=== PATIENT | female | born 1955 | race Caucasian/White ===

== ENCOUNTER 2020-01-26 11:32 | Inpatient (IN) | payer MEDICARE, SELFPAY ==
[2020-01-26] VITALS (10 sets, daily range): BP systolic 101–143; BP diastolic 47–82; PULSE 71–124; RESP 16–31; TEMP 36–37; O2SAT 95–100; BMI 31.0
--- NOTE | ~2020-01-26 | CT_ITS ---
EXAMINATION: CT brain wo con DATE: 01/26/2020 11:55 INDICATION: Cerebrovascular accident. Confusion. Collapsed at 1115 hours TECHNIQUE: Computed tomography (CT) of the head was performed without intravenous contrast. The mA wa s adjusted according to patient size. Iterative reconstruction technique was employed. Exam dose: 60 5.33 mGy-cm total exam DLP. COMPARISON: None FINDINGS: There are bilateral carotid siphon internal carotid artery calcifications. There is nonspec ific patchy diminished attenuation of the subcortical and periventricular cerebral white matter, poss ibly related to chronic small vessel ischemic changes. CT examination is not sensitive for hyperacute ischemic cerebrovascular accident. There is asymmetry of the lateral ventricles, the left frontal horn and body of the left lateral vent ricle larger than the right. No intracranial mass lesion or hemorrhage or mass effect is noted. No subdural or epidural hematoma i s detected. Orbital contents are unremarkable. Included paranasal sinuses and mastoid air cells are unremarkable. No fracture or bone destruction of the cranial vault. IMPRESSION: Cerebral atherosclerosis and chronic small vessel ischemic changes of the cerebral white matter Likely chronic lateral ventricle asymmetry No acute intracranial finding is noted; no intracranial hemorrhage Dr. Dubon telephoned the emergency room physician Dr. Castro with the report on 01/26/2020 at 1202 andria rs Reviewed, dictated and finalized at [facility]. Reviewed, dictated and finalized at location [facility]. IMPRESSION: Cerebral atherosclerosis and chronic small vessel ischemic changes of the cerebral white matter Likely chronic lateral ventricle asymmetry No acute intracranial finding is noted; no intracranial hemorrhage Dr. Dubon telephoned the emergency room physician Dr. Castro with the report on 01/26/2020 at 1202 hours
--- NOTE | ~2020-01-26 | MR_ITS ---
EXAMINATION: MR brain/brain stem wo/w con DATE: 01/27/2020 14:40 INDICATION: Seizure. TECHNIQUE: Magnetic resonance imaging (MRI) of the brain and brainstem was performed without and with 17 mL MultiHance intravenous contrast. Sequences included sagittal and axial T1-weighted FSE, axial diffusion-weighted FS EPI, axial T2*-weighted GRE, axial T2-weighted FLAIR Propeller, and axial T2-we ighted Propeller. Postcontrast sequences included axial and coronal T1-weighted FSE. Apparent diffusi on coefficient (ADC) maps were created. COMPARISON: Head CT 01/26/2020 FINDINGS: Motion artifact is noted. There are scattered areas of nonspecific increased T2-weighted si gnal intensity in the cerebral white matter and mac. There is no intracranial hemorrhage, acute infa rction, or abnormal intracranial mass lesion. The ventricles are normal in size. There is rightward d isplacement of the septum pellucidum, likely not clinically significant. The orbits are normal. There is mild mucosal thickening in the paranasal sinuses. The mastoid air cells are normal. IMPRESSION: 1. Moderate nonspecific cerebral white matter disease and pontine disease, which likely represents ch ronic small vessel ischemic disease. Reviewed, dictated and finalized at location [facility]. IMPRESSION: 1. Moderate nonspecific cerebral white matter disease and pontine disease, whic h likely represents chronic small vessel ischemic disease.
--- NOTE | ~2020-01-26 | XR_ITS ---
XR chest 1V portable 01/26/2020 12:04 Indication: Altered mental status. Stroke protocol. Procedure: AP portable chest Comparison: No prior studies for comparison. Findings: Elevated right diaphragm. Heart size normal. No focal air space disease, pulmonary edema, p leural effusion or suspected pneumothorax. No acute osseous abnormality. There are degenerative snow es of the glenohumeral joints. Impression: 1: No acute cardiopulmonary disease. Reviewed, dictated and finalized at location [facility]. Impression: 1: No acute cardiopulmonary disease.
--- NOTE | 2020-01-26 11:43 | ED.GENADULT ---
HPI - General Adult General Chief complaint: Neuro Symptoms/Deficit Stated complaint: AMS Time Seen by Provider: 01/26/20 11:43 Source: family and EMS Mode of arrival: EMS Limitations: altered mental status History of Present Illness HPI narrative: Patient is a 64-year-old female who presents for evaluation of altered mental status. Patient's reportedly called EMS as the patient was found unresponsive, moaning on a couch at home, shortly after patient has been has been eating breakfast. No seizure-like activity, the did state that she was unresponsive and was shaking. When questioned if he saw her arms or teeth clenched or any seizure-like activity, he was unable to provide any information for this. Patient also may have a history of seizure, but patient's is unsure of her medical problems, states that she takes medications but does not know for what. EMS initially brought the patient in as a code stroke, seen she was combative with a fascia. No noticeable facial drift or hemiparesis noted per EMS. EMS on is unable to obtain any IV access due to patient's combativeness which has resolved at the time of assessment. Patient currently is alert and oriented to person and place, she is able to identify her spouse. She is able to identify 3 objects in the room with correct naming. There is no gross focal deficits on initial exam. Patient is unable to provide additional history. Related Data Home Medications Medication Instructions Recorded Confirmed albuterol sulfate INHALATION 01/26/20 cyanocobalamin (vitamin B-12) 01/26/20 hydrochlorothiazide 01/26/20 levetiracetam PO 01/26/20 losartan 01/26/20 omeprazole 01/26/20 Allergies Allergy/AdvReac Type Severity Reaction Status Date / Time Penicillins Allergy Unknown Unknown Verified 01/26/20 12:06 ASPIRIN (Generic Allergy) Allergy Unknown Y Uncoded 01/26/20 12:06 Review of Systems Review of Systems: Narrative: Unable to obtain, secondary to altered mental status PMFSH Past Medical History Medical History GERD (gastroesophageal reflux disease) Obstructive sleep apnea Pulmonary hypertension Surgical History Surgical History H/O: hysterectomy Hx of cholecystectomy Family History Family History (Updated 11/19/16 @ 10:22 by DOCTOR UNKNOWN) Mother Diabetes mellitus, Onset Age: 87 Family history of cardiovascular disease, Onset Age: 87 Cerebrovascular accident, Onset Age: 87 Father Family history of cardiovascular disease, Onset Age: 83 Social History Social History Smoking status: Former smoker Smoking end date: 07/12/74 Alcohol intake: current Gender identity (if verbalized by the patient): Female Sexual Orientation (if Verbalized by the Patient): Straight or Heterosexual Exam Narrative: Exam Narrative: GENERAL: Awake, alert HEAD: Normocephalic, atraumatic. EYES: PERRLA and EOMI. ENT: Nares clear, no rhinorrhea or epistaxis. Mucous membranes moist. NECK: Supple. CHEST: No respiratory distress, breathing even and non labored HEART: Regular rate, sinus rhythm ABDOMEN:Non distended, non tender EXTREMITIES: Normal range of motion. No edema. SKIN: Warm, dry, no rash. NEURO:No focal deficits. Alert and oriented x2, can identify , and self, cannot provide date, year, or current President. Can identify three objects correctly. Finger to nose intact bilaterally. EOMs intact without nystagmus. No facial droop/asymmetry noted bilaterally. Grimace intact. Intact sensation in face. Hearing intact bilaterally. Shoulder shrug intact. Strength 5/5 bilateral upper extremities. No drift bilateral upper extremities. Strength 5/5 bilateral lower extremities. Reflexes 2+ patellar. Heel to gil intact bilaterally. Ambulatory exam deferred. Cou
[2020-01-26 12:02] LABS: Glucose Point of Care 149 (65-105)
--- NOTE | 2020-01-26 12:05 | PC.NURSE ---
pt to ct via stretcher with RN at this time.
[2020-01-26] MEDS: SODIUM CHLORIDE 0.9% IV 1,000 ML 999 ML IV CONT (12:11)
--- NOTE | 2020-01-26 12:19 | ECG_ITS ---
Measurements Intervals Ferguson Rate: 134 P: 50 DE: 148 QRS: 3 QRSD: 76 T: 14 QT: 303 QTc: 453 Interpretive Statements SINUS TACHYCARDIA EARLY PRECORDIAL R/S TRANSITION BASELINE WANDER- V4-V6 ABNORMAL ECG Electronically Signed On 01-27-2020 14:02:40 CDT by Dameon Carter D.O.
--- NOTE | 2020-01-26 12:59 | PC.NURSE ---
RN observed pt have a clonic seizure. ERP Dr. Castro at bedside, 2mg IV Ativan administered.
[2020-01-26] MEDS: levETIRAcetam 1000MG/NACL100ML 1,000 MG/100 ML BAG 400 MG IVPB ×2 (13:05→21:02)
[2020-01-26 13:15] LABS: Basophils Absolute Auto 0.1 K/mm3 (0.0-0.1); Eosinophils Percent Auto 0.4 % (0-4.4); Hematocrit 38.5 % (37.0-47.0); Immature Granulocyte Absolute 0.09 K/mm3 (0.00-0.031); Immature Granulocyte Percent A 1.3 % (0-0.5); Lymphocytes Absolute Auto 1.25 K/mm3 (0.9-3.2); Lymphocytes Percent Auto 18.7 % (18.3-44.2); Mean Corpuscular HGB Conc 33.8 g/dl (32-36); Mean Corpuscular Hemoglobin 29.5 pg (26-34); Mean Corpuscular Volume 87.5 fl (80-100); Mean Platelet Volume 9.5 fl (7.4-10.4); Monocytes Absolute Auto 0.4 K/mm3 (0.1-0.6); Monocytes Percent Auto 5.8 % (2.6-8.5); Neutrophils Absolute Auto 4.9 K/mm3 (1.3-6.7); Neutrophils Percent Auto 72.8 % (45.5-73.1); Platelet Count Result 199 k/mm3 (150-375); Red Cell Distribution Width 12.5 % (11.5-14.5); White Blood Count 6.7 K/mm3 (4.5-10.0)
--- NOTE | 2020-01-26 13:17 | PC.NURSE ---
Patient daughter: Gudelia Kevyn: [phone]
[2020-01-26 13:29] LABS: Ammonia < 9 umol/L (9-30)
[2020-01-26 13:32] LABS: Alanine Aminotransferase 25 U/L (4-35); Albumin Level 3.5 g/dL (3.5-5.1); Alkaline Phosphatase 95 U/L (38-126); Aspartate Amino Transferase 33 U/L (14-36); Bilirubin,Total 0.3 mg/dL (0.2-1.3); Blood Urea Nitrogen 20 mg/dL (7-17); Calcium 8.1 mg/dL (8.4-10.2); Carbon Dioxide 21 mmol/L (22-30); Chloride 111 mmol/L (98-107); Estimated CRCL calculation 85 ml/min; Estimated Glomerular Filt Rate > 60; Glucose 106 mg/dL (65-105); Potassium 3.9 mmol/L (3.4-5.0); Sodium 139 mmol/L (137-145)
[2020-01-26 13:34] LABS: INR 1.1; Prothrombin Time 13.6 Seconds (11.1-14.7)
[2020-01-26 13:35] LABS: Partial Thromboplastin Time 24.5 SECONDS (22.3-36.8)
[2020-01-26 13:35] LABS: Base Excess ABG -10.8 mEq/l (+/-2.0); Carboxyhemoglobin 0.2 % THb (0-2.0); Fractional Inspired Oxygen 21 %; HCO3 ABG 16.8 mEq/l (22.0-26.0); Methemoglobin ABG 0.4 %THb (0-1.5); Oxygen Content ABG 19.2 %vol (16.0-22.0); Oxygen Saturation ABG 99.4 % (95.0-100.0); Oxyhemoglobin 98.1 % THb (90.0-100.0); PCO2 ABG 43.8 mmHg (35.0-45.0); PO2 ABG 260.1 mmHg (80.0-100.0); Reduced Hemoglobin 1.3 %THb (0-5.0); Total Hemoglobin 13.5 g/dL (12.0-18.0); pH ABG 7.202 (7.350-7.450)
[2020-01-26 13:36] LABS: Alanine Aminotransferase 24 U/L (4-35); Albumin Level 3.5 g/dL (3.5-5.1); Alkaline Phosphatase 94 U/L (38-126); Aspartate Amino Transferase 35 U/L (14-36); Bilirubin,Total 0.3 mg/dL (0.2-1.3); Blood Urea Nitrogen 20 mg/dL (7-17); Carbon Dioxide 21 mmol/L (22-30); Chloride 111 mmol/L (98-107); Estimated CRCL calculation 100 ml/min; Estimated Glomerular Filt Rate > 60; Glucose 107 mg/dL (65-105); Potassium 3.9 mmol/L (3.4-5.0); Sodium 139 mmol/L (137-145)
[2020-01-26 13:37] LABS: Device ROOM AIR; Modified Allen's Test Pass; Site Drawn RIGHT RADIAL
[2020-01-26 13:48] LABS: Troponin I < 0.012 ng/mL (0.000-0.034)
[2020-01-26 13:50] LABS: Add Urine Microscopic? NO; Appearance Urine Clear (Clear); Bilirubin Urine Negative (Negative); Blood Urine Negative (Negative); Color Urine Yellow (Yellow); Glucose Urine UA Negative (Negative); Ketones Urine Negative (Negative); Leukocyte Esterase Ur Negative LEU/UL (Negative); Mucus Urine Rare /lpf; Nitrate Urine Negative (Negative); Protein Urine Negative (Negative); RBC Urine 0-2 /hpf (0-2); Specific Grav Ur 1.018 (1.001-1.035); Squamous Epithelial Cell Urine Rare /hpf (Few); Urobilinogen Urine Negative mg/dL (<2.0); WBC Urine 0-3 /hpf
[2020-01-26 13:58] LABS: Amphetamine Screen Urine Negative (Negative); Barbiturate Screen Urine Negative (Negative); Benzodiazepines Screen Urine Negative (Negative); Cannabinoid Screen Urine Negative (Negative); Cocaine Screen Urine Negative (Negative); Methadone Screen Urine Negative (Negative); Opiate Screen Urine Negative (Negative); Phencyclidine Screen Urine Negative (Negative)
--- NOTE | 2020-01-26 15:24 | PC.NURSE ---
RN report given to ARASH Baugh 201.
--- NOTE | 2020-01-26 16:21 | ADMGEN ---
This patient, Eli Basilio, was admitted to IMU Room 201-01. Patient/family oriented to hospital policies and general routines including ID bracelet, bed and alarms, visiting hours, pain management, procedures, bathroom and other care routines, personal items, smoking policy, room service/diet, and visiting hours. Valuables list has been completed. Information on how to activate the Rapid Response Team has been discussed. Patient/Family are encouraged to report perceived risks to care and to ask questions if they do not understand what they are told or what they should do.
--- NOTE | 2020-01-26 16:53 | WPDNEURCNPN ---
Assessment and Plan Assessment and plan (1) Seizure: Code(s): R56.9 - Unspecified convulsions Status: Acute Additional Plan I would recommend a MRI of the brain with and without contrast continue rest of the medical management as per the attending physician Consult date: 01/26/20 Time Seen: 16:15 HPI: Eli Basilio is a 64 year old female who is now postictal and also under the effect of the Ativan and Keppra has had at least 2 seizures 1 noted by the for which she was brought to the hospital emergency room and the other 1 happened in the emergency room the records were reviewed and concurred patient cannot offer much of a history is tearful and crying he tells me that she was perfectly fine before this incidence Review of Systems Review of Systems: ROS unobtainable: Yes unobtainable due to mental status and other ( patient is postictal and also under the influence of the Ativan) PMFSH Past Medical History Medical History GERD (gastroesophageal reflux disease) Obstructive sleep apnea Pulmonary hypertension Surgical History Surgical History H/O: hysterectomy Hx of cholecystectomy Family History Family History Mother Diabetes mellitus, Onset Age: 87 Family history of cardiovascular disease, Onset Age: 87 Cerebrovascular accident, Onset Age: 87 Father Family history of cardiovascular disease, Onset Age: 83 Social History Social History Smoking status: Never smoker Second hand tobacco smoke exposure: No Smoking end date: 07/12/74 Alcohol intake: never Substance use: never Substance use type: does not use Gender identity (if verbalized by the patient): Female Sexual Orientation (if Verbalized by the Patient): Straight or Heterosexual Spiritual care concerns: No Meds Home Medications and Allergies Home Medications Medication Instructions Recorded Confirmed Type albuterol sulfate INHALATION 01/26/20 History cyanocobalamin (vitamin B-12) 01/26/20 History hydrochlorothiazide 01/26/20 History levetiracetam PO 01/26/20 History losartan 01/26/20 History omeprazole 01/26/20 History Allergies Allergy/AdvReac Type Severity Reaction Status Date / Time Penicillins Allergy Unknown Unknown Verified 01/26/20 12:06 ASPIRIN (Generic Allergy) Allergy Unknown Y Uncoded 01/26/20 12:06 Vital Signs Vital Signs - 24 hr 01/26/20 11:43 01/26/20 12:10 01/26/20 15:00 Temperature 37.0 C 37.0 C Pulse Rate 124 H 110 H 74 Respiratory Rate 31 H 30 H 18 Blood Pressure 133/82 143/77 H 101/58 L Pulse Oximetry 96 95 100 01/26/20 16:09 Temperature Pulse Rate 75 Respiratory Rate 20 Blood Pressure 107/54 L Pulse Oximetry 100 Exam Const: General: comfortable and no acute distress HENMT: General nose exam: Normal nares present Mouth: Yes moist mucous membranes Eyes: General: appearance normal, both eyes and all related structures Neck: Neck: supple and no JVD Resp: Effort & Inspection: normal respiratory effort Auscultation: clear to auscultation bilaterally Cardio: Rate: regular rate Rhythm: regular rhythm GI: Auscultation: normal bowel sounds Skin: General skin exam: normal color and no rashes or lesions noted Neuro: Other: patient response to deep pain arousable moves all 4 extremities fairly well no nystagmus is noted she does have roving eye movements not any distress Extrem: General: normal to inspection Psych: Other: patient is postictal Results Labs CBC & Chem 7: 01/26/20 13:06 01/26/20 13:06 Labs: Short CBC 01/26/20 Range/Units 13:06 WBC 6.7 (4.5-10.0) K/mm3 Hgb 13.0 (12.0-15.0) g/dL Hct 38.5 (37.0-47.0) % Plt Count 199 (150-375) k/mm3 [facility] 01/26/20
--- NOTE | 2020-01-26 17:31 | PCRCNOTE ---
PT NON COMPLIANT WITH CPAP WILL NOT WEAR.
[2020-01-26] MEDS: SODIUM CHLORIDE 0.9% IV 1,000 ML 125 ML IV CONT (17:35)
--- NOTE | 2020-01-26 18:20 | PM.IMHP ---
H&P: HPI History of Present Illness Chief complaint: Seizure Narrative: Eli Basilio is a 64 year old female who has a history of having seizure disorder many years ago. The stated that has probably been 40 years since she has had a seizure. She has been on seizure medicine but he is not sure she has been taking it or not. The patient came to the emergency room to be evaluated for altered mental status. called EMS when he found her to be unresponsive and moaning on the couch at home. This occurred shortly after she ate breakfast. She was found to be unresponsive and was shaking. The was unsure about her medications and her medical problems. There was no facial droop or any hemiparesis. The patient was verbally unresponsive. The patient did wake up in the emergency room and was able to identify 3 different objects in the room she name them correctly. She had no gross focal weakness upon examination. However the patient was found to be incontinent again and was having a colonic tonic seizure in the emergency room this was witnessed by the ER staff. Neurology was called and IV Keppra was ordered. 2 mg of Ativan during her seizure in the emergency room. Cerebral atherosclerosis and chronic small vessel ischemic changes of the cerebral white matter. Likely chronic lateral ventral asymmetry. No acute intracranial finding is noted, no intracranial hemorrhage. The patient is still postictal when I saw her in IMU. She has a Anne catheter in that is draining cloudy yellow urine although her urinalysis was negative. Chest x-ray showed nothing acute. Date of service 01/26/2020 Review of Systems Review of Systems: ROS unobtainable: Yes unobtainable due to mental status Constitutional: Constitutional: Reports as per HPI and Reports no additional constitutional complaints Eyes: Eyes: Reports as per HPI and Reports no additional eye complaints ENT: Reports system reviewed and no additional complaints, except as documented and Reports Normal hearing present Cardiovascular: Cardiovascular: Reports no additional cardiovascular complaints Respiratory: Respiratory: Reports no additional respiratory complaints and Reports no additional respiratory complaints Gastrointestinal: Gastrointestinal: Reports as per HPI and Reports no additional gastrointestinal complaints Musculoskeletal: Musculoskeletal: Reports no additional musculoskeletal complaints Integumentary/Breasts: Skin/Breast: Reports system reviewed and no additional complaints, except as docu and Reports as per HPI Neurologic: Reports system reviewed and no additional complaints, except as documented, Reports as per HPI and Reports Normal hearing present Psychiatric: Psychiatric: Reports no additional psychiatric complaints and Reports as per HPI Endocrine: Endocrine: Reports no additional endocrine complaints Hematologic/Lymphatic: Hematologic/Lymphatic: Reports no additional hematologic/lymphatic complaints Allergic/Immunologic: Allergic/Immunologic: Reports no additional allergic/immunologic complaints [facility] Past Medical History Medical History (Updated 01/26/20 @ 18:36 by Ana Khan NP) GERD (gastroesophageal reflux disease) Hypertension Obstructive sleep apnea Noncompliant with CPAP Pulmonary hypertension Surgical History Surgical History H/O: hysterectomy Hx of cholecystectomy Family History Family History Mother Diabetes mellitus, Onset Age: 87 Family history of cardiovascular disease, Onset Age: 87 Cerebrovascular accident, Onset Age: 87 Father Family history of cardiovascular disease, Onset Age: 83 Social History Social History (Updated 01/26/20 @ 18:27 by Ana Khan NP) Social History: 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
[2020-01-26 19:10] LABS: Alveolar/Arterial O2 Gradient 28.6 mmHg; Base Excess ABG -3.3 mEq/l (+/-2.0); Fractional Inspired Oxygen 21 %; HCO3 ABG 20.7 mEq/l (22.0-26.0); Oxygen Content ABG 16.7 %vol (16.0-22.0); Oxygen Saturation ABG 96.1 % (95.0-100.0); Oxyhemoglobin 94.5 % THb (90.0-100.0); PCO2 ABG 33.7 mmHg (35.0-45.0); PO2 ABG 80.8 mmHg (80.0-100.0); PO2 FiO2 Ratio Arterial Blood 3.85 %; Total Hemoglobin 12.5 g/dL (12.0-18.0); pH ABG 7.406 (7.350-7.450)
[2020-01-26 19:11] LABS: Device ROOM AIR; Modified Allen's Test Pass; Site Drawn LEFT RADIAL
[2020-01-26] MEDS: PANTOPRAZOLE SODIUM IV 40 MG VIAL IV PUSH (21:00)
[2020-01-27] VITALS (18 sets, daily range): BP systolic 94–133; BP diastolic 40–99; PULSE 63–92; RESP 16–25; TEMP 35.8–37.3; O2SAT 93–99
[2020-01-27] MEDS: SODIUM CHLORIDE 0.9% IV 1,000 ML 125 ML IV CONT ×3 (01:53→17:15)
[2020-01-27 04:52] LABS: Basophils Absolute Auto 0.1 K/mm3 (0.0-0.1); Basophils Percent Auto 0.8 % (0.2-1.2); Eosinophils Percent Auto 0.6 % (0-4.4); Hematocrit 32.9 % (37.0-47.0); Hemoglobin 11.3 g/dL (12.0-15.0); Immature Granulocyte Absolute 0.04 K/mm3 (0.00-0.031); Immature Granulocyte Percent A 0.6 % (0-0.5); Lymphocytes Absolute Auto 1.79 K/mm3 (0.9-3.2); Lymphocytes Percent Auto 27.2 % (18.3-44.2); Mean Corpuscular HGB Conc 34.3 g/dl (32-36); Mean Corpuscular Hemoglobin 30.1 pg (26-34); Mean Corpuscular Volume 87.7 fl (80-100); Mean Platelet Volume 9.7 fl (7.4-10.4); Monocytes Absolute Auto 0.5 K/mm3 (0.1-0.6); Monocytes Percent Auto 7.3 % (2.6-8.5); Neutrophils Absolute Auto 4.2 K/mm3 (1.3-6.7); Neutrophils Percent Auto 63.5 % (45.5-73.1); Platelet Count Result 180 k/mm3 (150-375); Red Blood Count 3.75 M/mm3 (4.2-5.4); Red Cell Distribution Width 12.5 % (11.5-14.5); White Blood Count 6.6 K/mm3 (4.5-10.0)
[2020-01-27 05:15] LABS: Alanine Aminotransferase 20 U/L (4-35); Albumin Level 2.9 g/dL (3.5-5.1); Alkaline Phosphatase 81 U/L (38-126); Aspartate Amino Transferase 29 U/L (14-36); Bilirubin,Total 0.5 mg/dL (0.2-1.3); Blood Urea Nitrogen 14 mg/dL (7-17); CRP 0.7 mg/dL (<1.0); Calcium 7.7 mg/dL (8.4-10.2); Carbon Dioxide 22 mmol/L (22-30); Chloride 113 mmol/L (98-107); Estimated CRCL calculation 101 ml/min; Estimated Glomerular Filt Rate > 60; Glucose 100 mg/dL (65-105); Phosphorus 2.4 mg/dL (2.5-4.5); Potassium 3.6 mmol/L (3.4-5.0); Sodium 138 mmol/L (137-145)
[2020-01-27] MEDS: levETIRAcetam 1000MG/NACL100ML 1,000 MG/100 ML BAG 400 MG IVPB ×2 (08:44→20:09)
[2020-01-27] MEDS: PANTOPRAZOLE SODIUM IV 40 MG VIAL IV PUSH ×2 (08:45→20:08)
--- NOTE | 2020-01-27 17:00 | PM.IMPN ---
Progress Note: A&P Assessment and Plan (1) Seizure: Code(s): R56.9 - Unspecified convulsions Status: Acute Assessment and Plan: Continue with IV Keppra. P.r.n. Ativan. And neurology consult. EEG ordered, MRI and ct completed, MRI chronic changes (2) Hypertension: Code(s): I10 - Essential (primary) hypertension Status: Chronic Assessment and Plan: Continue to hold losartan and hydrochlorothiazide at this time due to her low blood pressure. (3) GERD (gastroesophageal reflux disease): Code(s): K21.9 - Gastro-esophageal reflux disease without esophagitis Status: Chronic Assessment and Plan: Continue Protonix Subjective Date/time seen: 01/27/20 17:00 Interval history: Chetna is a 64 year old female who has a history of having seizure disorder many years ago. The stated that has probably been 40 years since she has had a seizure. Pt is going for MRI brain today, sounds like she had a grand mal seizure were see bit her tongue, being watched for any further seizures may benefit from EEG appreciate neurology consult Review of Systems Review of Systems: All systems reviewed & are unremarkable except as noted in HPI and below Neurologic: Comments: Seizure, postictal confusion Exam Const: General: tired appearing and other (postictal bite ean on tongue ) Limitations: altered mental status (Postictal) Resp: Effort & Inspection: normal respiratory effort Auscultation: clear to auscultation bilaterally Percussion: percussion normal Cardio: Palpation: normal PMI Rate: regular rate Rhythm: regular rhythm Heart sounds: S1 normal heart sound present and S2 normal heart sound present Peripheral pulses: Peripheral pulses 2+ throughout Neuro: General: oriented to person, oriented to place, oriented to time, patient oriented x3 and Unable to assess gait Cranial nerves: Yes Equal, round and reactive pupils present and Yes Normal hearing present Cognition (Neuro): normal cognition Speech: normal speech Gait exam (Neuro): Unable to assess gait Motor exam (neuro): 5/5 motor strength present throughout Sensory Exam: normal sensation Extrem: General: normal to inspection Right upper extremity: normal to inspection and shoulder/upper arm Left upper extremity: normal to inspection and shoulder/upper arm Right lower extremity: normal to inspection Left lower extremity: normal to inspection Psych: Appearance: grossly normal Mental Status: mental status grossly normal Speech and movement: Normal speech and movement present Affect: normal affect Attitude: cooperative Thought process: Normal thought process present Insight: Good insight present (Psych) Judgement: Good judgement present (Psych) Objective Data Vital Signs Vital Signs: Vital Signs - 24 hr 01/26/20 18:00 01/26/20 19:53 01/26/20 20:00 Temperature 36.0 C L Pulse Rate 71 83 77 Respiratory Rate 20 20 Blood Pressure 113/50 L Pulse Oximetry 99 99 01/26/20 22:00 01/26/20 23:34 01/27/20 00:00 Temperature 36.6 C Pulse Rate 87 87 77 Respiratory Rate 16 16 Blood Pressure 116/47 L Pulse Oximetry 99 99 01/27/20 02:00 01/27/20 03:57 01/27/20 04:00 Temperature 36.1 C L Pulse Rate 80 80 80 Respiratory Rate 20 20 Blood Pressure 132/99 H Pulse Oximetry 95 95 01/27/20 05:49 01/27/20 07:48 01/27/20 08:00 Temperature 36.1 C L Pulse Rate 68 63 92 Respiratory Rate 24 H Blood Pressure 94/40 L Pulse Oximetry 93 01/27/20 10:00 01/27/20 12:00 01/27/20 14:51 Temperature 35.9 C L Pulse Rate 70 75 68 Respiratory Rate 16 Blood Pressure 110/43 L Pulse Oximetry 97 01/27/20 16:00 Temperature Pulse Rate 64 Respiratory Rate Blood Pressure Pulse Oximetry Intake/Output Intake/Output: Intake & Output 01/24/20 01/25/20 01/26/20 01/27/20 23:59 23:59 23:59 23:59 Intake Total 1200 3000 Output Total 150 550 Balance 1050 2450 Meds/Results
--- NOTE | 2020-01-27 17:33 | CONS_ITS ---
DATE OF CONSULTATION: Patient of Dr. Maribell Cabrales. HISTORY OF PRESENT ILLNESS: A 64-year-old, right-handed female, has been admitted to the hospital through the emergency room for the complaints of change in the mental status. When called the EMS to the home, she was found to be unresponsive and moaning on the couch, that occurred shortly after she ate breakfast. She was found by the to be unresponsive and shaking. He himself was unsure about the medication or any other neurological finding. She woke up in the emergency room, was able to identify 3 objects in the room. She had no gross focal weakness, but she was found to be incontinent and having clonic and tonic activity in the emergency room also by the ER staff. She was given intravenous Keppra along with 2 mg of Ativan because of seizure in the emergency room. CT scan of the head was normal. She was found to be postictal when she was in the IMU, seen by the physician. As per the information available, she has ongoing history of seizure disorder dating back to about 40 years ago. In addition, she had ongoing history of: 1. GERD. 2. Hypertension. 3. Obstructive sleep apnea with noncompliance with the CPAP. 4. Hypertension. 5. Hysterectomy. 6. Cholecystectomy. SOCIAL HISTORY: At present, she is never alcohol drinker. No tobacco smoker. MEDICATIONS: Medications at the time of admission included: 1. Keppra that is levetiracetam 500 mg twice a day. 2. Losartan 50 mg daily. 3. Omeprazole 40 mg daily. 4. Hydrochlorothiazide 12.5 mg daily. 5. Cyanocobalamin 1000 mcg intramuscular monthly. 6. Albuterol sulfate 90 mcg inhalation on p.r.n. basis. PHYSICAL EXAMINATION: GENERAL: Revealed her to be awake, alert, cooperative, in no obvious acute distress at this stage. HEENT: Head normocephalic with no cranial bruit. Ear, nose, throat examination normal. NECK: Supple with no meningeal signs. No cervical bruit. No lymphadenopathy. HEART: Regular with no murmur. LUNGS: Clear to auscultation with no rhonchi or crepitation. ABDOMEN: Soft with normal bowel sounds. No tenderness. NEUROLOGICAL: She is awake, alert, oriented x3. Speech, no dysphasic, no dysarthric, no dysphonic. Pupils round, regular. Stringer of vision full. Extraocular movements full. Face symmetrical. Tongue midline. Motor examination revealed her to have normal strength and tone with no drift against the gravity. Reflexes symmetrical. Plantars are downgoing. There is no evidence of ataxia or dysmetria on [id number]-finger. LABORATORY STUDIES: Evaluation up until now include the CBC with WBC 6.7, hemoglobin 13.0, platelet count 199, normal basic metabolic panel with CO2 21, troponin less than 0.012. AST 33, ALT 25, alkaline phos 95, albumin 3.5, and total bilirubin 0.3. UA completely normal. Initial CT scan of the head, chronic small vessel ischemic changes with atherosclerotic white matter disease. No evidence of bleed or space-occupying lesion. There is chronic lateral ventricle asymmetry noted. Chest x-ray negative. At this stage, the patient is receiving Keppra 1000 mg q.12 hours that can be converted to p.o. and EEG can be obtained if not over the weekend, can be obtained as an outpatient. Thank you very much for letting me evaluate this patient. NARDA SCHAEFER M.D. WINDOWS INFRASTRUCTURE ENGINEER WINDOWS INFRASTRUCTURE ENGINEER D I MT: Ras[facility]
[2020-01-28] VITALS (16 sets, daily range): BP systolic 98–143; BP diastolic 51–81; PULSE 54–84; RESP 16–26; TEMP 35.6–36.9; O2SAT 93–100
[2020-01-28] MEDS: SODIUM CHLORIDE 0.9% IV 1,000 ML 125 ML IV CONT (01:18)
[2020-01-28 04:21] LABS: Hemoglobin 11.6 g/dL (12.0-15.0); Mean Corpuscular HGB Conc 34.1 g/dl (32-36); Mean Corpuscular Hemoglobin 29.9 pg (26-34); Mean Corpuscular Volume 87.6 fl (80-100); Mean Platelet Volume 9.7 fl (7.4-10.4); Platelet Count Result 180 k/mm3 (150-375); Red Blood Count 3.88 M/mm3 (4.2-5.4); Red Cell Distribution Width 12.5 % (11.5-14.5); White Blood Count 5.8 K/mm3 (4.5-10.0)
[2020-01-28 04:45] LABS: Blood Urea Nitrogen 13 mg/dL (7-17); Calcium 7.9 mg/dL (8.4-10.2); Carbon Dioxide 20 mmol/L (22-30); Chloride 115 mmol/L (98-107); Estimated CRCL calculation 89 ml/min; Estimated Glomerular Filt Rate > 60; Glucose 98 mg/dL (65-105); Potassium 3.6 mmol/L (3.4-5.0); Sodium 140 mmol/L (137-145)
[2020-01-28] MEDS: levETIRAcetam 1000MG/NACL100ML 1,000 MG/100 ML BAG 400 MG IVPB (08:31)
[2020-01-28] MEDS: PANTOPRAZOLE SODIUM IV 40 MG VIAL IV PUSH ×2 (08:32→21:00)
--- NOTE | 2020-01-28 11:30 | WPDNEUROPN ---
Progress Note: A&P Assessment and Plan (1) GERD (gastroesophageal reflux disease): Code(s): K21.9 - Gastro-esophageal reflux disease without esophagitis Status: Chronic (2) Hypertension: Code(s): I10 - Essential (primary) hypertension Status: Chronic Additional Plan stable ,change meds to po Review of Systems Review of Systems: All systems reviewed & are unremarkable except as noted in HPI and below Exam Const: General: cooperative, comfortable, no acute distress and awake Nutritional Appearance: obese Orientation/consciousness: patient oriented x3 Limitations: no limitations HENMT: Head: normal to inspection Ears: hearing grossly normal bilaterally General nose exam: Normal external nose present and No nasal discharge present Face and sinus: normal facial exam Eyes: General: appearance normal, both eyes and all related structures Neck: Neck: full ROM and no lymphadenopathy Resp: Effort & Inspection: normal respiratory effort Auscultation: clear to auscultation bilaterally Cardio: Rate: regular rate Rhythm: regular rhythm GI: Auscultation: normal bowel sounds Skin: General skin exam: no rashes or lesions noted Neuro: General: patient oriented x3, moves all extremities, no focal motor deficits and CN's II-XI intact bilaterally Cognition (Neuro): normal cognition Speech: normal speech Deep tendon reflexes (DTR's): Right triceps reflex intensity grade: 1+, Left triceps reflex intensity grade: 1+, Rt Biceps (C5, C6): 1+, Left biceps reflex intensity grade: 1+, Right brachioradialis reflex intensity grade: 1+, Left brachioradialis reflex intensity grade: 1+, Right patellar reflex intensity grade: 1+, Left patellar reflex intensity grade: 1+, Right ankle reflex intensity grade: 1+ and Left ankle reflex intensity grade: 1+ Plantar Reflex Responses: downgoing: bilateral Extrem: General: normal to inspection Psych: Speech and movement: Normal speech and movement present Affect: normal affect Attitude: cooperative Thought process: Normal thought process present Thought content: Yes Normal thought content present Insight: Fair insight present (Psych) Judgement: Fair judgement present (Psych) Objective Data Vital Signs Vital Signs: Vital Signs - 24 hr 01/27/20 12:00 01/27/20 14:51 01/27/20 16:00 Temperature 35.9 C L 37.3 C Pulse Rate 75 68 63 Respiratory Rate 16 18 Blood Pressure 110/43 L 106/44 L Pulse Oximetry 97 98 01/27/20 18:15 01/27/20 19:31 01/27/20 19:42 Temperature 37.1 C Pulse Rate 68 72 72 Respiratory Rate 18 18 Blood Pressure 133/58 L Pulse Oximetry 97 97 01/27/20 20:00 01/27/20 21:21 01/27/20 21:45 Temperature Pulse Rate 69 63 67 Respiratory Rate 25 H Blood Pressure Pulse Oximetry 94 01/27/20 23:46 01/28/20 00:00 01/28/20 02:00 Temperature 35.8 C L Pulse Rate 63 54 L 63 Respiratory Rate 18 18 Blood Pressure 125/61 Pulse Oximetry 97 97 01/28/20 03:31 01/28/20 03:57 01/28/20 04:00 Temperature 35.8 C L Pulse Rate 77 77 75 Respiratory Rate 16 16 Blood Pressure 118/81 Pulse Oximetry 97 97 01/28/20 05:55 01/28/20 08:00 01/28/20 10:40 Temperature 36.3 C L Pulse Rate 60 79 84 Respiratory Rate 26 H Blood Pressure 98/52 L Pulse Oximetry 96 Intake/Output Intake/Output: Intake & Output 01/25/20 01/26/20 01/27/20 01/28/20 23:59 23:59 23:59 23:59 Intake Total 1200 4370 1370 Output Total 150 1250 800 Balance 1050 3120 570 Meds/Results Medications: Active Medications Generic Name Dose Route Start Last Admin Trade Name Freq PRN Reason Stop Dose Admin Albuterol 2 puff 01/26/20 18:40 Proventil Hfa INHALATION Q4-6H PRN SOB AND WHEEZING Sodium Chloride 1,000 mls @ 125 mls/hr 01/26/20 14:15 01/28/20 01:18 Normal Saline Iv IV CONT 125 mls/hr .Q8H CHRIS Administration Levetiracetam 500 mg 01/28/20 21:00 Keppra Tablet PO Q12HR CHRIS Lorazepam 1 mg 01/09
--- NOTE | 2020-01-28 11:50 | PM.IMPN ---
Progress Note: A&P Assessment and Plan (1) Seizure: Code(s): R56.9 - Unspecified convulsions Status: Acute Assessment and Plan: Continue with IV Keppra. P.r.n. Ativan. And neurology consult. EEG ordered, MRI and ct completed, MRI chronic changes PT/ OT concha enriquez (2) Hypertension: Code(s): I10 - Essential (primary) hypertension Status: Chronic Assessment and Plan: Continue to hold losartan and hydrochlorothiazide at this time due to her low blood pressure. (3) GERD (gastroesophageal reflux disease): Code(s): K21.9 - Gastro-esophageal reflux disease without esophagitis Status: Chronic Assessment and Plan: Continue Protonix Subjective Date/time seen: 01/28/20 11:50 Interval history: Chetna is a 64 year old female who has a history of having seizure disorder many years ago. The stated that has probably been 40 years since she has had a seizure. Pt had mri brain showing chronic changes only, awaiting eeg. sounds like she had a grand mal seizure were see bit her tongue on day of admission, being watched for any further seizures Review of Systems Review of Systems: All systems reviewed & are unremarkable except as noted in HPI and below ROS unobtainable: Yes other (less confused still weak in her legs ) Exam Const: General: tired appearing and other (postictal bite ean on tongue, generalised weakness, shakey in standing ) Nutritional Appearance: average body habitus and overweight Orientation/consciousness: oriented to person, oriented to place, oriented to time and patient oriented x3 Limitations: altered mental status (Postictal) Chest: Chest palpation & inspection: normal inspection of the chest Resp: Effort & Inspection: normal respiratory effort Auscultation: clear to auscultation bilaterally Percussion: percussion normal Cardio: Palpation: normal PMI Rate: regular rate Rhythm: regular rhythm Heart sounds: S1 normal heart sound present and S2 normal heart sound present Peripheral pulses: Peripheral pulses 2+ throughout Neuro: General: oriented to person, oriented to place, oriented to time, patient oriented x3 and Unable to assess gait Cranial nerves: Yes Equal, round and reactive pupils present and Yes Normal hearing present Cognition (Neuro): normal cognition Speech: normal speech Sensory Exam: normal sensation Extrem: General: normal to inspection Right upper extremity: normal to inspection and shoulder/upper arm Left upper extremity: normal to inspection and shoulder/upper arm Right lower extremity: normal to inspection Left lower extremity: normal to inspection Psych: Appearance: grossly normal Mental Status: mental status grossly normal Speech and movement: Normal speech and movement present Affect: normal affect Attitude: cooperative Objective Data Vital Signs Vital Signs: Vital Signs - 24 hr 01/27/20 12:00 01/27/20 14:51 01/27/20 16:00 Temperature 35.9 C L 37.3 C Pulse Rate 75 68 63 Respiratory Rate 16 18 Blood Pressure 110/43 L 106/44 L Pulse Oximetry 97 98 01/27/20 18:15 01/27/20 19:31 01/27/20 19:42 Temperature 37.1 C Pulse Rate 68 72 72 Respiratory Rate 18 18 Blood Pressure 133/58 L Pulse Oximetry 97 97 01/27/20 20:00 01/27/20 21:21 01/27/20 21:45 Temperature Pulse Rate 69 63 67 Respiratory Rate 25 H Blood Pressure Pulse Oximetry 94 01/27/20 23:46 01/28/20 00:00 01/28/20 02:00 Temperature 35.8 C L Pulse Rate 63 54 L 63 Respiratory Rate 18 18 Blood Pressure 125/61 Pulse Oximetry 97 97 01/28/20 03:31 01/28/20 03:57 01/28/20 04:00 Temperature 35.8 C L Pulse Rate 77 77 75 Respiratory Rate 16 16 Blood Pressure 118/81 Pulse Oximetry 97 97 01/28/20 05:55 01/28/20 08:00 01/28/20 10:40 Temperature 36.3 C L Pulse Rate 60 79 84 Respiratory Rate 26 H Blood Pressure 98/52 L Pulse Oximetry 96 Intake/Output Intake/Output: Intake & Output
[2020-01-28] MEDS: levETIRAcetam 500 MG TABLET PO (21:00)
[2020-01-29] VITALS (12 sets, daily range): BP systolic 116–148; BP diastolic 56–80; PULSE 60–87; RESP 18–20; TEMP 36.3–36.8; O2SAT 94–98
[2020-01-29 04:33] LABS: Hematocrit 34.7 % (37.0-47.0); Hemoglobin 11.9 g/dL (12.0-15.0); Mean Corpuscular HGB Conc 34.3 g/dl (32-36); Mean Corpuscular Hemoglobin 29.5 pg (26-34); Mean Corpuscular Volume 86.1 fl (80-100); Mean Platelet Volume 9.4 fl (7.4-10.4); Platelet Count Result 185 k/mm3 (150-375); Red Blood Count 4.03 M/mm3 (4.2-5.4); Red Cell Distribution Width 12.4 % (11.5-14.5)
[2020-01-29 05:01] LABS: Blood Urea Nitrogen 10 mg/dL (7-17); Calcium 8.4 mg/dL (8.4-10.2); Carbon Dioxide 22 mmol/L (22-30); Chloride 111 mmol/L (98-107); Estimated CRCL calculation 90 ml/min; Estimated Glomerular Filt Rate > 60; Glucose 105 mg/dL (65-105); Potassium 3.6 mmol/L (3.4-5.0); Sodium 138 mmol/L (137-145)
[2020-01-29] MEDS: levETIRAcetam 500 MG TABLET PO (08:30)
[2020-01-29] MEDS: PANTOPRAZOLE SODIUM IV 40 MG VIAL IV PUSH (08:32)
--- NOTE | 2020-01-29 09:30 | NEURO_ITS ---
TEST: ELECTROENCEPHALOGRAM DIAGNOSIS: SEIZURE DISORDER PATIENT NUMBER: [id number] EEG NUMBER: [id number] RECORDING DATE: 01/29/20 CONDITION OF RECORDING: Awake, drowsy and sleep EEG DESCRIPTION: Basic resting occipital frequency consists of moderate amount of fairly well organized low voltage 8-10hz alpha mixed with low voltage 15-18hz beta. During drowsiness low voltage beta activity is seen diffusely mixed with waxing and waning posterior alpha rhythms. Bilateral symmetrical sleep activity is seen during sleep. Hyperventilation and photic stimulation were not done. Nonparoxysmal. Nonfocal. Nonlateralizing. IMPRESSION: Only questionably abnormal record due to the presence of intermittent bi-hemispheric theta activity. Clinical correlation recommended, these abnormalities could be suggestive of underlying organic or metabolic encephalopathy or the post ictal state. [facility]
--- NOTE | 2020-01-29 10:28 | WPDNEUROPN ---
Progress Note: A&P Assessment and Plan (1) GERD (gastroesophageal reflux disease): Code(s): K21.9 - Gastro-esophageal reflux disease without esophagitis Status: Chronic (2) Hypertension: Code(s): I10 - Essential (primary) hypertension Status: Chronic Additional Plan stable home today Review of Systems Review of Systems: All systems reviewed & are unremarkable except as noted in HPI and below Exam Const: General: cooperative, healthy appearing, comfortable, no acute distress, alert, awake and Physically active Nutritional Appearance: average body habitus and overweight HENMT: Head: normal to inspection Eyes: General: appearance normal, both eyes and all related structures Neck: Neck: full ROM and no lymphadenopathy Resp: Effort & Inspection: normal respiratory effort and able to speak in complete sentences Auscultation: clear to auscultation bilaterally Cardio: Rate: regular rate Rhythm: regular rhythm GI: Auscultation: normal bowel sounds Skin: General skin exam: no rashes or lesions noted Neuro: General: patient oriented x3, gait normal, moves all extremities, Normal light touch and pain sensation, no focal motor deficits and CN's II-XI intact bilaterally Cranial nerves: Yes CN's II-XII intact bilaterally, Yes Equal, round and reactive pupils present, Yes Bilaterally intact EOM present, Yes Nystagmus not present, Yes Normal facial strength present, Yes Midline tongue present, Yes Symmetric palate elevation present, Yes Normal hearing present, Yes Ability to bilaterally rotate head present and Yes Ability to bilaterally elevate shoulders present Cognition (Neuro): normal cognition Speech: normal speech Gait exam (Neuro): Normal gait present Motor exam (neuro): 5/5 motor strength present throughout Deep tendon reflexes (DTR's): Right triceps reflex intensity grade: 1+, Left triceps reflex intensity grade: 1+, Rt Biceps (C5, C6): 1+, Left biceps reflex intensity grade: 1+, Right brachioradialis reflex intensity grade: 1+, Left brachioradialis reflex intensity grade: 1+, Right patellar reflex intensity grade: 1+, Left patellar reflex intensity grade: 1+, Right ankle reflex intensity grade: 1+ and Left ankle reflex intensity grade: 1+ Plantar Reflex Responses: downgoing: bilateral Coordination: [id number] test normal Extrem: General: normal to inspection Psych: Appearance: grossly normal Mental Status: mental status grossly normal Speech and movement: Normal speech and movement present Affect: normal affect Attitude: cooperative Thought process: Normal thought process present Thought content: Yes Normal thought content present Insight: Good insight present (Psych) Judgement: Good judgement present (Psych) Objective Data Vital Signs Vital Signs: Vital Signs - 24 hr 01/28/20 10:40 01/28/20 12:00 01/28/20 14:29 Temperature 36.4 C Pulse Rate 84 67 71 Respiratory Rate 24 H Blood Pressure 130/51 L Pulse Oximetry 98 01/28/20 16:00 01/28/20 18:17 01/28/20 19:32 Temperature 36.9 C 35.6 C L Pulse Rate 69 76 74 Respiratory Rate 20 18 Blood Pressure 143/78 H 135/65 Pulse Oximetry 100 100 01/28/20 20:00 01/28/20 22:00 01/28/20 23:00 Temperature Pulse Rate 75 70 64 Respiratory Rate 20 Blood Pressure Pulse Oximetry 93 01/29/20 00:00 01/29/20 00:10 01/29/20 01:50 Temperature 36.7 C Pulse Rate 69 73 60 Respiratory Rate 18 20 Blood Pressure 116/61 Pulse Oximetry 98 94 01/29/20 02:00 01/29/20 04:00 01/29/20 04:18 Temperature 36.5 C Pulse Rate 66 72 87 Respiratory Rate 18 Blood Pressure 125/80 Pulse Oximetry 97 01/29/20 06:00 01/29/20 07:39 Temperature 36.3 C L Pulse Rate 71 80 Respiratory Rate 18 Blood Pressure 120/56 L Pulse Oximetry 97 Intake/Output Intake/Output: Intake & Output 01/26/20 01/27/20 01/28/20 01/29/20 23:59 23:59 23:59 23:59 Intake Total 1200 4370 3050 560 Output Total 150 1250 1450 1000
--- NOTE | 2020-01-29 14:22 | PM.DS ---
DS: Admitting Diagnosis Admitting Diagnosis Admitting Diagnosis: Unspecified convulsions DS: Discharge Diagnosis Discharge Diagnosis (1) Seizure: Code(s): R56.9 - Unspecified convulsions Status: Acute Assessment and Plan: Continue with IV Keppra. P.r.n. Ativan. And neurology consult. EEG ordered, MRI and ct completed, MRI chronic changes PT/ OT dc mina (2) Hypertension: Code(s): I10 - Essential (primary) hypertension Status: Chronic Assessment and Plan: Continue to hold losartan and hydrochlorothiazide at this time due to her low blood pressure. (3) GERD (gastroesophageal reflux disease): Code(s): K21.9 - Gastro-esophageal reflux disease without esophagitis Status: Chronic Assessment and Plan: Continue Protonix DS: Summary Hospital Course Reason for hospitalization: Narrative: Eli Basilio is a 64 year old female who has a history of having seizure disorder many years ago. The stated that has probably been 40 years since she has had a seizure. She has been on seizure medicine but he is not sure she has been taking it or not. The patient came to the emergency room to be evaluated for altered mental status. called EMS when he found her to be unresponsive and moaning on the couch at home. This occurred shortly after she ate breakfast. She was found to be unresponsive and was shaking. The was unsure about her medications and her medical problems. There was no facial droop or any hemiparesis. The patient was verbally unresponsive. The patient did wake up in the emergency room and was able to identify 3 different objects in the room she name them correctly. She had no gross focal weakness upon examination. However the patient was found to be incontinent again and was having a colonic tonic seizure in the emergency room this was witnessed by the ER staff. Neurology was called and IV Keppra was ordered. 2 mg of Ativan during her seizure in the emergency room. Cerebral atherosclerosis and chronic small vessel ischemic changes of the cerebral white matter. Likely chronic lateral ventral asymmetry. No acute intracranial finding is noted, no intracranial hemorrhage. The patient is still postictal when I saw her in IMU. She has a Anne catheter in that is draining cloudy yellow urine although her urinalysis was negative. Chest x-ray showed nothing acute. Date of service 01/26/2020 Hospital Course: Patient remains clinically stayed MRI and CT scan at no acute injury, no seizures while in the hospital, patient seen by Neurology stable will discharge the patient home today. Time Spent with Patient Time attestation: Total time spent providing and/or coordinating discharge services: Exam Const: General: comfortable and no acute distress HENMT: General nose exam: Normal nares present Mouth: Yes moist mucous membranes Eyes: General: appearance normal, both eyes and all related structures Sclera: sclerae normal Neck: Neck: supple Resp: Effort & Inspection: normal respiratory effort Auscultation: clear to auscultation bilaterally Cardio: Rate: regular rate Rhythm: regular rhythm GI: Inspection: distended Skin: General skin exam: normal color Neuro: Sensory Exam: normal sensation Extrem: General: normal to inspection Psych: Affect: Anxious affect present DS: Data Data Completed and Pending Labs on day of discharge: Labs from last 24 hours 01/29/20 01/29/20 04:15 04:15 WBC 6.0 RBC 4.03 L Hgb 11.9 L Hct 34.7 L MCV 86.1 MCH 29.5 MCHC 34.3 RDW 12.4 Plt Count 185 MPV 9.4 Sodium 138 Potassium 3.6 Chloride 111 H Carbon Dioxide 22 BUN 10 Creatinine 0.60 L Estim Creat Clear Calc 90 Estimated GFR > 60 Glucose 105 Calcium 8.4 Discharge Plan Discharge Attending physician on discharge: Serg Herring Consulting providers: Alex Bradshaw ; ; Phong Espana ; Ana Khan
== END 2020-01-29 15:10 | disposition home or self-care (01) | DRG 101 ==
LOC: ANHED 13:23 → ANHIMU 14:50
PROVIDERS: Nurse Practitioner; Admitting Provider Family Medicine; Emergency Provider Emergency Medicine; Visit Provider Family Medicine
DX: G40.419 Other generalized epilepsy and epileptic syndromes, intractable, without status epilepticus (principal); K21.9 Gastro-esophageal reflux disease without esophagitis; G47.33 Obstructive sleep apnea (adult) (pediatric); I27.20 Pulmonary hypertension, unspecified; I10 Essential (primary) hypertension
CPT/HCPCS: 36415; 36600; 70450; 70553; 71045; 80048; 80053; 80307; 81003; 82140; 82375; 82805; 82948; 83050; 83735; 84100; 84443; 84484; 85025; 85027; 85610; 85730; 86140; 93005; 95816; 96361; 96365; 96366; 96375; 96376; 97161; 97165; 99285; A9270; A9577; C9113; G0378; J1953; J2060; J7030

== ENCOUNTER 2021-04-02 13:47 | Emergency (ER) | payer MEDICARE, SELFPAY ==
[2021-04-02 13:51] VITALS: BP 136/69; PULSE 57; RESP 18; TEMP 36.7; O2SAT 98
--- NOTE | 2021-04-02 17:32 | ED.GENADULT ---
HPI - General Adult General Chief complaint: Wound/Laceration Stated complaint: head injury Time Seen by Provider: 04/02/21 16:50 Source: patient and RN notes reviewed Mode of arrival: ambulatory Limitations: no limitations History of Present Illness HPI narrative: Patient is a 65-year-old female who presents to emergency department for evaluation of head injury that occurred this morning after tripping over the vacuum cord falling forward and striking the head. Patient denies loss of consciousness syncope neck pain or other skeletal complaints or injuries. Believes her tetanus to be up-to-date. Notes only mild discomfort at the site of the laceration Related Data Home Medications Medication Instructions Recorded Confirmed albuterol sulfate 2 inh INHALATION Q4-6H PRN 01/26/20 01/27/20 cyanocobalamin (vitamin B-12) 1,000 mcg IM MONTHLY 01/26/20 01/26/20 hydrochlorothiazide 12.5 mg PO DAILY 01/26/20 01/26/20 losartan 50 mg PO DAILY 01/26/20 01/26/20 omeprazole 40 mg PO DAILY 01/26/20 01/26/20 Allergies Allergy/AdvReac Type Severity Reaction Status Date / Time Penicillins Allergy Unknown Unknown Verified 04/02/21 13:54 ASPIRIN (Generic Allergy) Allergy Unknown Y Uncoded 01/26/20 12:06 Review of Systems Review of Systems: All systems reviewed & are unremarkable except as noted in HPI and below PMFSH Past Medical History Medical History GERD (gastroesophageal reflux disease) Hypertension Obstructive sleep apnea Noncompliant with CPAP Pulmonary hypertension Surgical History Surgical History H/O: hysterectomy Hx of cholecystectomy Family History Family History Mother Diabetes mellitus, Onset Age: 87 Family history of cardiovascular disease, Onset Age: 87 Cerebrovascular accident, Onset Age: 87 Father Family history of cardiovascular disease, Onset Age: 83 Social History Social History Social History: 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 Her Red is a durable power finance attorney for healthcare. She is a full code. The states that she does not use any alcohol marijuana or illicit drugs. He stated that she might have smoked in the past but not while he was to her. He also stated that she might a drink in the past but not while they have been . Smoking status: Never smoker Second hand tobacco smoke exposure: No Smoking end date: 07/12/74 Alcohol intake: never Substance use: never Substance use type: does not use Gender identity (if verbalized by the patient): Female Sexual Orientation (if Verbalized by the Patient): Straight or Heterosexual Spiritual care concerns: No Exam Narrative: GENERAL: Well-appearing, well-nourished, and in no acute distress. HEAD: Normocephalic, 2 cm superficial linear laceration mid forehead EYES: PERRLA and EOMI. ENT: Nares clear, no rhinorrhea or epistaxis. Mucous membranes moist. NECK: Supple. No adenopathy or masses. CHEST: Clear to auscultation. No respiratory distress. No wheezes rales or rhonchi HEART: Regular rate and rhythm. No murmur heard. Normal peripheral pulses. EXTREMITIES: Normal range of motion. No edema. No cervical spine tenderness to palpation SKIN: Warm, dry, no rash. NEURO: No focal deficits. Alert and oriented x3. Cranial nerves II through XII grossly intact PSYCH: Normal mood and affect. Course Course Emergency Course: Patient presented with laceration no other complaints ABCs and vital signs intact and stable wound was repaired in the emergency department will be discharged home with outpatient follow-up provided with reasons to return Vital Signs Vital signs: Vital Signs Temperature 98.1 F 04/02/21 13:51 Pulse Rate 57 L 04/02/21
[2021-04-02 18:05] VITALS: BP 125/60; PULSE 60; RESP 14; O2SAT 99
== END 2021-04-02 18:07 | disposition home or self-care (01) ==
LOC: ANHED 17:39
PROVIDERS: Emergency Provider Emergency Medicine; PCP Physician Assistant
DX: S01.81XA Laceration without foreign body of other part of head, initial encounter (principal); K21.9 Gastro-esophageal reflux disease without esophagitis; I10 Essential (primary) hypertension; G47.33 Obstructive sleep apnea (adult) (pediatric); I27.20 Pulmonary hypertension, unspecified; W18.09XA Striking against other object with subsequent fall, initial encounter
CPT/HCPCS: 12011; 99283

== ENCOUNTER 2021-10-14 10:44 | Observation (INO) | payer MEDICARE, SELFPAY ==
[2021-10-14] VITALS (13 sets, daily range): BP systolic 104–152; BP diastolic 59–118; PULSE 71–112; RESP 15–23; TEMP 36.4–37.6; O2SAT 97–100; BMI 36.3
--- NOTE | ~2021-10-14 | CT_ITS ---
EXAMINATION: CT brain wo con DATE: 10/14/2021 11:59 INDICATION: Altered mental status. TECHNIQUE: Computed tomography (CT) of the head was performed without intravenous contrast. The mA wa s adjusted according to patient size. Iterative reconstruction technique was employed. The dose-lengt h product was 1210.67 mGy-cm. COMPARISON: Head CT 01/26/2020, brain MRI 01/27/2020 FINDINGS: Motion artifact is noted. There are scattered areas of low attenuation in the cerebral whit e matter. There is no intracranial hemorrhage, acute infarction, or abnormal intracranial mass lesion . The ventricles are normal in size. There is mild mucosal thickening in the paranasal sinuses. The o rbits are normal. The mastoid air cells are normal. IMPRESSION: 1. Stable moderate nonspecific cerebral white matter disease, which likely represents chronic small v essel ischemic disease. 2. Sensitivity mildly decreased by motion artifact. Reviewed, dictated and finalized at location A. IMPRESSION: 1. Stable moderate nonspecific cerebral white matter disease, which likely repr esents chronic small vessel ischemic disease. 2. Sensitivity mildly decreased by motion artifact.
--- NOTE | ~2021-10-14 | XR_ITS ---
EXAMINATION: XR chest 1V portable DATE: 10/14/2021 12:55 INDICATION: Seizure. Leukocytosis. TECHNIQUE: A single frontal view of the chest was obtained. COMPARISON: Chest single view 01/26/2020 FINDINGS: There is chronic elevation of right hemidiaphragm. There are airspace opacities in the mid and lower lung zones. No pleural effusion or pneumothorax. The heart size is normal. Surgical clips i n the right upper quadrant are likely from cholecystectomy. IMPRESSION: 1. Airspace opacities in the mid and lower lung zones, consistent with atelectasis versus pneumonia. Reviewed, dictated and finalized at location A. IMPRESSION: 1. Airspace opacities in the mid and lower lung zones, consistent with atelecta sis versus pneumonia.
--- NOTE | ~2021-10-14 | MR_ITS ---
EXAMINATION: MR brain/brain stem wo con EXAM DATE: 10/16/2021 12:47 INDICATION: Confusion TECHNIQUE: Magnetic resonance imaging (MRI) of the brain/brain stem obtained without contrast. Sagitt al T1, axial diffusion, gradient echo (T2*), T1, T2, FLAIR sequences obtained. Comparison is made to prior examination from 01/27/2020. FINDINGS: There are no areas of restricted diffusion to suggest acute infarction. There is no acute hemorrhage seen on the T2*, a hemosiderin sensitive sequence. No intraparenchymal brain mass lesion. Dilated perivascular spaces centrally. There is moderate periventricular and subcortical T2/FLAIR signal hyperintensity, nonspecific but probably related to small vessel ischemic disease (microangiop athy). There is prominence of the sulci and ventricles related to cerebral atrophy. There are no extra-axial collections. Flow voids are seen in the cerebral arteries on the T2-weighted sequences c onsistent with their expected patency. The orbits are unremarkable. Soft tissue is unremarkable. IMPRESSION: 1. No acute intracranial findings. 2. Microangiopathy, mild interval progression. Reviewed, dictated and finalized at location A.
--- NOTE | 2021-10-14 11:05 | ECG_ITS ---
Measurements Intervals [place] Rate: 106 P: 65 WV: 133 QRS: 25 QRSD: 86 T: 36 QT: 336 QTc: 446 Interpretive Statements SINUS TACHYCARDIA ABNORMAL RHYTHM ECG COMPARED TO ECG 01/26/2020 11:40:16 NO SIGNIFICANT CHANGES Electronically Signed On 10-14-2021 16:47:14 CDT by Nisha Ren M.D.
[2021-10-14] MEDS: LORazepam INJ (*CRX) 2 MG/ML VIAL 1 MG IV PUSH (11:10)
[2021-10-14] MEDS: levETIRAcetam 1000MG/NACL100ML 1,000 MG/100 ML BAG 400 MG IVPB (11:10)
[2021-10-14 11:16] LABS: Basophils Absolute Auto 0.1 K/mm3 (0.0-0.1); Basophils Percent Auto 0.6 % (0.2-1.2); Eosinophils Percent Auto 0.1 % (0-4.4); Hemoglobin 13.4 g/dL (12.0-15.0); Immature Granulocyte Absolute 0.12 K/mm3 (0.00-0.031); Lymphocytes Absolute Auto 1.54 K/mm3 (0.9-3.2); Lymphocytes Percent Auto 12.3 % (18.3-44.2); Mean Corpuscular HGB Conc 32.7 g/dl (32-36); Mean Corpuscular Hemoglobin 29.6 pg (26-34); Mean Corpuscular Volume 90.7 fl (80-100); Mean Platelet Volume 9.4 fl (7.4-10.4); Monocytes Absolute Auto 0.6 K/mm3 (0.1-0.6); Monocytes Percent Auto 4.6 % (2.6-8.5); Neutrophils Absolute Auto 10.2 K/mm3 (1.3-6.7); Neutrophils Percent Auto 81.4 % (45.5-73.1); Platelet Count Result 221 k/mm3 (150-375); Red Blood Count 4.52 M/mm3 (4.2-5.4); White Blood Count 12.6 K/mm3 (4.5-10.0)
[2021-10-14 11:23] LABS: Add Urine Microscopic? YES; Appearance Urine Cloudy (Clear); Bilirubin Urine Negative (Negative); Blood Urine 2+ (Negative); Color Urine Yellow (Yellow); Glucose Urine UA Negative (Negative); Ketones Urine 1+ mg/dL (Negative); Leukocyte Esterase Ur Negative LEU/UL (Negative); Mucus Urine Rare /lpf; Nitrate Urine Negative (Negative); Protein Urine 1+ mg/dL (Negative); Specific Grav Ur 1.021 (1.001-1.035); Squamous Epithelial Cell Urine Occasional /hpf (Few); Urobilinogen Urine Negative mg/dL (<2.0); WBC Urine 0-3 /hpf
[2021-10-14 11:33] LABS: Alkaline Phosphatase 110 U/L (38-126); Anion Gap 15 mmol/L (8-16); Aspartate Amino Transferase 43 U/L (14-36); Bilirubin,Total 0.6 mg/dL (0.2-1.3); Blood Urea Nitrogen 17 mg/dL (7-17); Calcium 8.4 mg/dL (8.4-10.2); Carbon Dioxide 18 mmol/L (22-30); Chloride 106 mmol/L (98-107); Estimated CRCL calculation 91 ml/min; Estimated Glomerular Filt Rate > 60; Glucose 163 mg/dL (65-110); Potassium 3.8 mmol/L (3.4-5.0); Sodium 139 mmol/L (137-145)
[2021-10-14 11:34] LABS: Alanine Aminotransferase 32 U/L (4-35)
--- NOTE | 2021-10-14 11:53 | ED.SEIZURE ---
HPI - Seizure General Chief Complaint: Seizure Stated Complaint: unresponsive Time Seen by Provider: 10/14/21 10:50 Source: patient, family and EMS Mode of arrival: EMS Limitations: altered mental status History of Present Illness HPI Narrative: Pt is a 66 y/o female, presents to ED via EMS from home where family found her confused, suspecting postictal and incontinent of urine. No signs of trauma reported. She then had a witnessed seizure in route to the ED. Her daughter and brother at advise she has had a slight cough for the past week without any additional associated symptoms. Yesterday, her daughter found an empty bottle of Keppra and determined along with the patient. that she believed to be taking her Keppra when she was actually out. It is uncertain how long she has been out of her medication. She arrives to the ED postictal and incontinent of urine Seizure History: Yes Related Data Home Medications Medication Instructions Recorded Confirmed albuterol sulfate 2 inh INHALATION Q4-6H PRN 01/26/20 01/27/20 cyanocobalamin (vitamin B-12) 1,000 mcg IM MONTHLY 01/26/20 01/26/20 hydrochlorothiazide 12.5 mg PO DAILY 01/26/20 01/26/20 losartan 50 mg PO DAILY 01/26/20 01/26/20 omeprazole 40 mg PO DAILY 01/26/20 01/26/20 Allergies Allergy/AdvReac Type Severity Reaction Status Date / Time aspirin Allergy Unknown Verified 10/14/21 11:00 Penicillins Allergy Unknown Unknown Verified 04/02/21 13:54 Review of Systems Review of Systems: refer to HPI ROS unobtainable: Yes unobtainable due to medical condition (postictal, information obtained from family at ) [facility] Past Medical History Medical History (Updated 10/14/21 @ 15:13 by AQUILES Ching) GERD (gastroesophageal reflux disease) Hypertension Obstructive sleep apnea Noncompliant with CPAP Pulmonary hypertension Seizure Surgical History Surgical History H/O: hysterectomy Hx of cholecystectomy Family History Family History Mother Diabetes mellitus, Onset Age: 87 Family history of cardiovascular disease, Onset Age: 87 Cerebrovascular accident, Onset Age: 87 Father Family history of cardiovascular disease, Onset Age: 83 Social History Social History Social History: 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 Her Red is a durable power chemical engineering technician for healthcare. She is a full code. The states that she does not use any alcohol marijuana or illicit drugs. He stated that she might have smoked in the past but not while he was to her. He also stated that she might a drink in the past but not while they have been . Smoking status: Never smoker Second hand tobacco smoke exposure: No Smoking end date: 07/12/74 Alcohol intake: never Substance use: never Substance use type: does not use Gender identity (if verbalized by the patient): Female Sexual Orientation (if Verbalized by the Patient): Straight or Heterosexual Spiritual care concerns: No Exam Const: General: ill appearing Nutritional Appearance: obese Orientation/consciousness: confusion Limitations: altered mental status HENMT: Head: normal to inspection Eyes: Conjunctivae: conjunctivae normal Pupils: Equal, round and reactive pupils present EOM: EOMs intact bilaterally Neck: Neck: normal visual inspection Chest: Chest palpation & inspection: normal inspection of the chest Resp: Effort & Inspection: normal respiratory effort Auscultation: clear to auscultation bilaterally Cardio: Rate: tachycardic GI: GI Palp: Yes Soft to palpation Back/Spine/Pelvis: Back: no CVA tenderness Skin: General skin exam: normal color Neuro: General: no focal motor deficits (pt is moving her LUE and RUE independently, she moves her lower legs ) Extrem:
[2021-10-14] MEDS: SODIUM CHLORIDE 0.9% IV 1,000 ML 999 ML IV CONT (12:47)
--- NOTE | 2021-10-14 15:45 | PM.IMHP ---
H&P: HPI History of Present Illness Date/Time: 10/14/21 15:45 Chief Complaint: Unresponsive. Narrative: This is a 66-year-old female with history of seizures, hypertension, and sleep apnea who presented to the emergency department via EMS from home for evaluation after she was found unresponsive. She is not able to provide an accurate history given her current clinical condition and as such almost all of the following is obtained via a review of her electronic medical records as well as discussions with 1 over daughters with the bedside, with the patient's permission. According to the daughter, the patient has seemed to become increasingly forgetful over the past 2 years and she is wondering if the patient may have some mild dementia. Apparently it is not unusual for her to miss taking some of her medications and they are not certain she has been taking them correctly. The patient's is currently in the hospital at [facility] and her [id number] came today to pick her up so she did visit her . When he arrived to the home she did not answer the door and when he appeared through the window she was seen lying on the floor, unresponsive to his knocking. On EMS arrival she was alert but confused and could not provide any information as to how she got on the ground or how long she had been down. It is my understanding that she had a seizure in route to the hospital which terminated prior to her receiving any medication. Vital signs were stable on arrival to the ER. Brain CT did not show any acute findings and chest x-ray showed airspace opacities in the mid and lower lung zones consistent with atelectasis versus pneumonia. Due to prolonged postictal state and concerns for possible aspiration pneumonia imaging, I was asked to admit her for further observation and treatment. At the time my evaluation she is somnolence but will answer questions however at times her answers are nonsensical and she is still confused. Her daughter saw her in her usual state of health last night and noted that the patient was perhaps coughing a little bit but she had not noticed that she appeared ill to any extent. Aside from a mild headache she has no other complaints at this time. She specifically denies fever, chills, and sweats, vertigo, diplopia, paresthesias, focal weakness, chest pain, shortness a breast, nausea, vomiting, diarrhea, dysuria, and myalgias. Review of Systems Review of Systems: Twelve systems were reviewed and are negative except for as per HPI. She remains postictal however thus I am not sure how accurate her answers are at this time. [facility] Past Medical History Medical History (Updated 10/14/21 @ 20:54 by Cintia Lugo PA-C) Gastroesophageal reflux disease Hypertension Memory loss Progressive short-term memory loss within the last 2 years. No official dementia diagnosis. Obstructive sleep apnea Noncompliant with CPAP Prediabetes Pulmonary hypertension Seizure Surgical History Surgical History (Updated 10/14/21 @ 20:46 by Cintia Lugo PA-C) History of cholecystectomy History of hysterectomy Family History Family History Mother Family history of cardiovascular disease, Onset Age: 87 Diabetes mellitus, Onset Age: 87 Cerebrovascular accident, Onset Age: 87 Colon cancer Father Family history of cardiovascular disease, Onset Age: 83 Diabetes mellitus Son No problems noted. Sibling Breast cancer Sibling Heart attack Social History Social History (Updated 10/14/21 @ 20:47 by Cintia Lugo PA-C) Social History: The patient lives in [place] with her . They have 3 children, 2 daughters and 1 son. She smoked remotely as a young woman. No alcohol or illicit substance use. Her is currently in the hospital and is quite ill and thus her current surrogate decision makers are 3 children, Wander Coryell, Tiffanie Coryell,
--- NOTE | 2021-10-14 17:30 | ADMGEN ---
This patient, Eli Basilio, was admitted to 3 [facility] Surg Room 316-01. Patient/family oriented to hospital policies and general routines including ID bracelet, bed and alarms, visiting hours, pain management, procedures, bathroom and other care routines, personal items, smoking policy, room service/diet, and visiting hours. Information on how to activate the Rapid Response Team has been discussed. Patient/Family are encouraged to report perceived risks to care and to ask questions if they do not understand what they are told or what they should do.
[2021-10-14] MEDS: CALCIUM CARBONATE (TUMS) 500 MG (200 MG ELEMENTAL) 400 MG PO (22:31)
[2021-10-14] MEDS: levETIRAcetam 500 MG TABLET PO (22:31)
[2021-10-14] MEDS: SODIUM CHLORIDE 0.9% IV 1,000 ML 100 ML IV CONT (22:32)
[2021-10-14] MEDS: PANTOPRAZOLE 40 MG TABLET PO (22:32)
[2021-10-15] VITALS (10 sets, daily range): BP systolic 109–139; BP diastolic 64–96; PULSE 80–100; RESP 17–26; TEMP 36.1–37.7; O2SAT 94–98
[2021-10-15 06:30] LABS: Basophils Absolute Auto 0.1 K/mm3 (0.0-0.1); Basophils Percent Auto 0.9 % (0.2-1.2); Eosinophils Percent Auto 0.4 % (0-4.4); Hematocrit 34.6 % (37.0-47.0); Hemoglobin 11.8 g/dL (12.0-15.0); Immature Granulocyte Absolute 0.02 K/mm3 (0.00-0.031); Immature Granulocyte Percent A 0.4 % (0-0.5); Lymphocytes Absolute Auto 1.47 K/mm3 (0.9-3.2); Lymphocytes Percent Auto 26.3 % (18.3-44.2); Mean Corpuscular HGB Conc 34.1 g/dl (32-36); Mean Corpuscular Hemoglobin 29.7 pg (26-34); Mean Corpuscular Volume 87.2 fl (80-100); Mean Platelet Volume 9.1 fl (7.4-10.4); Monocytes Absolute Auto 0.5 K/mm3 (0.1-0.6); Monocytes Percent Auto 8.6 % (2.6-8.5); Neutrophils Absolute Auto 3.5 K/mm3 (1.3-6.7); Neutrophils Percent Auto 63.4 % (45.5-73.1); Platelet Count Result 174 k/mm3 (150-375); Red Blood Count 3.97 M/mm3 (4.2-5.4); Red Cell Distribution Width 12.8 % (11.5-14.5); White Blood Count 5.6 K/mm3 (4.5-10.0)
[2021-10-15 06:43] LABS: Alanine Aminotransferase 19 U/L (4-35); Albumin Level 3.3 g/dL (3.5-5.1); Alkaline Phosphatase 87 U/L (38-126); Anion Gap 6 mmol/L (8-16); Aspartate Amino Transferase 38 U/L (14-36); Bilirubin,Total 0.8 mg/dL (0.2-1.3); Blood Urea Nitrogen 12 mg/dL (7-17); Calcium 8.3 mg/dL (8.4-10.2); Carbon Dioxide 23 mmol/L (22-30); Chloride 110 mmol/L (98-107); Creatine Kinase 498 U/L (30-135); Estimated CRCL calculation 64 ml/min; Estimated Glomerular Filt Rate > 60; Glucose 104 mg/dL (65-110); Magnesium 1.9 mg/dL (1.6-2.3); Potassium 3.8 mmol/L (3.4-5.0); Sodium 139 mmol/L (137-145)
[2021-10-15 06:46] LABS: Hemoglobin A1C 5.1 % (<5.7)
[2021-10-15 07:47] LABS: Folic Acid 10.9 ng/mL (2.76->20)
[2021-10-15] MEDS: levETIRAcetam 500 MG TABLET PO (09:13)
[2021-10-15] MEDS: hydroCHLOROthiazide 12.5 MG CAPSULE PO (09:14)
[2021-10-15] MEDS: PANTOPRAZOLE 40 MG TABLET PO ×2 (09:14→20:33)
[2021-10-15] MEDS: LOSARTAN POTASSIUM 50 MG TABLET PO (09:14)
--- NOTE | 2021-10-15 09:52 | PM.IMPN ---
Progress Note: A&P Assessment and Plan (1) Seizure: Code(s): R56.9 - Unspecified convulsions Status: Acute Assessment and Plan: Concern for non compliance though daughter is concerned she have some mild underlying dementia which may be contributing to her missing her pills on occasion. Keppra level pending. She was loaded with Keppra and is being admitted close monitoring. Initiate seizure, fall, and aspiration precautions. Pending neurology evaluation (2) Postictal state: Code(s): R56.9 - Unspecified convulsions Status: Acute Assessment and Plan: Results (3) Leukocytosis: Code(s): D72.829 - Elevated white blood cell count, unspecified Status: Acute Assessment and Plan: Multifactorial probably related to seizure and probable aspiration pneumonia continue antibiotic (4) Abnormal chest x-ray: Code(s): R93.89 - Abnormal findings on diagnostic imaging of other specified body structures Status: Acute Assessment and Plan: DC Levaquin Start Rocephin and azithromycin (5) Prediabetes: Code(s): R73.03 - Prediabetes Status: Acute Assessment and Plan: Random glucose today is 163. hemoglobin A1c. (6) Hypertension: Code(s): I10 - Essential (primary) hypertension Status: Chronic Assessment and Plan: Blood pressures were reviewed and they are stable. Antihypertensives will be reviewed and resumed as appropriate. Additional Plan Pending neurology evaluation Repeat CBC in a.m. Pending Keppra level Anticipate discharge in a day or 2 I discussed with the patient regarding activity restriction including but not limited to driving No driving for 6 months Subjective Date/time seen: 10/15/21 09:52 Interval history: 66 years old female with past medical history of seizure presented to the hospital with episode of unresponsiveness also according to the family lately patient has been forgetful about taking her medication at home patient on Keppra patient had prolonged episode of unresponsiveness chest x-ray was done showed probable pneumonia versus atelectasis patient had low-grade fever and leukocytosis admitted to the hospital for Neurology evaluation and further evaluation and treatment of pneumonia. Patient feels better today Patient denies fever headache chest pain shortness of breath I am seeing the patient for pneumonia Exam Narrative: Alert Chest positive crackles Abdomen nontender nondistended CVS S1 + S2 Lower extremity edema Objective Data Vital Signs Vital Signs: Vital Signs - 24 hr 10/14/21 10:44 04/05/22 11:02 10/14/21 11:23 Temperature 97.6 F Pulse Rate 112 H 111 H 108 H Respiratory Rate 18 21 H Blood Pressure 152/118 H Pulse Oximetry 100 99 10/14/21 11:28 10/14/21 12:13 10/14/21 14:25 Temperature Pulse Rate 101 H 78 71 Respiratory Rate 23 H 17 15 Blood Pressure 104/79 130/64 148/76 H Pulse Oximetry 98 98 97 10/14/21 15:19 10/14/21 16:23 10/14/21 16:37 Temperature Pulse Rate 72 77 93 Respiratory Rate 20 18 20 Blood Pressure 126/67 122/69 106/87 Pulse Oximetry 97 100 97 10/14/21 16:50 10/14/21 17:34 10/14/21 20:00 Temperature 97.8 F Pulse Rate 77 98 92 Respiratory Rate 21 H 18 18 Blood Pressure 107/59 L Pulse Oximetry 98 97 98 10/14/21 21:15 10/15/21 00:00 10/15/21 04:00 Temperature 99.6 F Pulse Rate 97 86 90 Respiratory Rate 18 Blood Pressure 120/60 Pulse Oximetry 98 10/15/21 05:36 Temperature 99.8 F H Pulse Rate 97 Respiratory Rate 18 Blood Pressure 123/64 Pulse Oximetry 96 Intake/Output Intake/Output: Intake & Output 10/12/21 10/13/21 10/14/21 10/15/21 23:59 23:59 23:59 23:59 Intake Total 1400 236 Balance 1400 236 Meds/Results Medications: Active Medications Generic Name Dose Route Start Last Admin Trade Name Jtq PRN Reason Stop Dose Admin Albuterol 2 puff 10/14/21 20:34 Albuter
[2021-10-15] MEDS: levETIRAcetam 250 MG TABLET PO (12:40)
[2021-10-15] MEDS: levETIRAcetam 250 MG TABLET 750 MG PO (20:33)
[2021-10-15] MEDS: levoFLOXacin 750 MG TABLET PO (21:55)
[2021-10-16] VITALS: PULSE 101
--- NOTE | 2021-10-16 02:57 | PCRCNOTE ---
Pt does not have CPAP at home right now and does not want to wear hospital CPAP
[2021-10-16 04:00] VITALS: PULSE 93
[2021-10-16 06:00] VITALS: BP 159/65; PULSE 86; RESP 24; TEMP 37; O2SAT 95
[2021-10-16 08:00] VITALS: PULSE 86; RESP 24; O2SAT 95
[2021-10-16] MEDS: hydroCHLOROthiazide 12.5 MG CAPSULE PO (08:16)
[2021-10-16] MEDS: levETIRAcetam 250 MG TABLET 750 MG PO ×2 (08:16→20:23)
[2021-10-16] MEDS: PANTOPRAZOLE 40 MG TABLET PO ×2 (08:16→20:24)
[2021-10-16] MEDS: LOSARTAN POTASSIUM 50 MG TABLET PO (08:16)
--- NOTE | 2021-10-16 09:36 | PC.NURSE ---
Addendum entered by Ligia Mcdaniel RN 10/16/21 09:39: Pt up walking around nursing station this morning, refusing to go back to room. Stating she is at her house, reorientation ineffective, continues to pace around and demanding to leave. LINOLEUM FLOOR INSTALLER walked one on one with pt, pt returned to room, daughter informed and stated family will be up soon to sit with pt in attempts to help keep pt calm. Hospitalist informed. Original Note: Pt up walking around nursing station this morning, refusing to go back to room. Stating she is at her house, reorientation ineffective, continues to pace around and demanding to leave. LINOLEUM FLOOR INSTALLER walked one on one with pt, pt returned to room, daughter informed and stated family will be up soon to sit with pt in attempts to help keep pt calm. Hospitalist Torrie informed.
--- NOTE | 2021-10-16 10:09 | PC.NURSE ---
pt has calmed down, efficiency miner one on one, shower given. Family to come later this afternoon.
--- NOTE | 2021-10-16 10:49 | PM.IMPN ---
Progress Note: A&P Assessment and Plan (1) Seizure: Code(s): R56.9 - Unspecified convulsions Status: Acute Assessment and Plan: Concern for non compliance though daughter is concerned she have some mild underlying dementia which may be contributing to her missing her pills on occasion. Keppra level pending. She was loaded with Keppra and is being admitted close monitoring. Initiate seizure, fall, and aspiration precautions. Pending neurology evaluation. Will put formal consultation order Patient still has memory issue unsure how much is at baseline. Will get MRI brain for further evaluation for ongoing confusion Keppra dose has been increased (2) Postictal state: Code(s): R56.9 - Unspecified convulsions Status: Acute Assessment and Plan: Still ongoing confusion. Part of it could be underlying dementia how ever unable to correlate with previous history. Will touch base with family today Will get MRI await Neurology evaluation as well (3) Leukocytosis: Code(s): D72.829 - Elevated white blood cell count, unspecified Status: Acute Assessment and Plan: Multifactorial probably related to seizure and probable aspiration pneumonia continue antibiotic Chest x-ray with atelectasis versus pneumonia Leukocytosis has resolved (4) Abnormal chest x-ray: Code(s): R93.89 - Abnormal findings on diagnostic imaging of other specified body structures Status: Acute Assessment and Plan: On oral Levaquin (5) Prediabetes: Code(s): R73.03 - Prediabetes Status: Acute Assessment and Plan: Random glucose today is 163. hemoglobin A1c. (6) Hypertension: Code(s): I10 - Essential (primary) hypertension Status: Chronic Assessment and Plan: Blood pressures were reviewed and they are stable. Antihypertensives will be reviewed and resumed as appropriate. Subjective Date/time seen: 10/16/21 10:49 Interval history: 66 years old female with past medical history of seizure presented to the hospital with episode of unresponsiveness also according to the family lately patient has been forgetful about taking her medication at home patient on Keppra patient had prolonged episode of unresponsiveness chest x-ray was done showed probable pneumonia versus atelectasis patient had low-grade fever and leukocytosis admitted to the hospital for Neurology evaluation and further evaluation and treatment of pneumonia. 10/16/2021: Patient still confused. Thinks she is in the hotel. Wants to go home. No other complaint occasional cough no chest pain or shortness of breath Review of Systems Review of Systems: All systems reviewed & are unremarkable except as noted in HPI and below (HPI) Exam Narrative: GENERAL: The patient is well developed, not in acute distress HEENT: Nonicteric sclerae, PERRLA, EOMI. Oropharynx clear. Moist mucous membranes. Conjunctivae appear well perfused. CHEST: Chest wall is nontender. HEART: Regular rate and rhythm without murmur, rubs, or gallops LUNGS: Clear to auscultation bilaterally. no respiratory distress ABDOMEN: Soft, positive bowel sounds, non-tender, no organomegaly. SKIN: No rash, no excessive bruising, petechiae, or purpura. NEUROLOGIC: Cranial nerves II-XII intact, alert and conversant. Oriented to self not to time and place. No gross motor deficits EXTREMITIES: no edema, cyanosis or clubbing Extrem: General: normal exam except as noted and no edema Objective Data Vital Signs Vital Signs: Vital Signs - 24 hr 10/15/21 12:00 10/15/21 14:00 10/15/21 16:25 Temperature 97 F L Pulse Rate 80 94 90 Respiratory Rate 17 Blood Pressure 139/96 H Pulse Oximetry 94 10/15/21 16:34 10/15/21 20:00 10/15/21 22:00 Temperature 99.2 F 99.2 F Pulse Rate 84 93 Respiratory Rate 26 H 26 H Blood Pressure 109/72 109/72 Pulse Oximetry 96 98 98 10/16/21 00:00 10/16/21 04:00 10/16/21 06:00
--- NOTE | 2021-10-16 11:20 | PCOTNOTE ---
Spoke with nurse, hospitalist, care asst, patient, and pt.'s grandson. Pt. has been independent today in all ADLs, with nursing present for safety, transfers, and is currently walking laps in hallway with DIGITAL PRINT OPERATOR. Pt. is unlikely to benefit from therapy evaluation at this time. Canceling orders.
--- NOTE | 2021-10-16 11:48 | PC.NURSE ---
called Gudelia Bagley to complete MRI screening form, no answer awaiting call back. Pt unable to answer screening form questions due to A&ox2
[2021-10-16 14:50] VITALS: BP 128/65; PULSE 100; RESP 18; TEMP 36.8; O2SAT 100
[2021-10-16] MEDS: METOCLOPRAMIDE HCL 5 MG TABLET PO ×2 (16:24→20:24)
--- NOTE | 2021-10-16 18:19 | PC.NURSE ---
tele d/c per Md Decker
[2021-10-16] MEDS: levoFLOXacin 750 MG TABLET PO (21:14)
[2021-10-16 21:55] VITALS: BP 102/84; PULSE 86; RESP 18; TEMP 37.1; O2SAT 97
[2021-10-17] MEDS: METOCLOPRAMIDE HCL 5 MG TABLET PO (05:22)
[2021-10-17 05:35] VITALS: BP 120/58; PULSE 86; RESP 20; TEMP 37; O2SAT 96
[2021-10-17 05:58] LABS: Basophils Absolute Auto 0.1 K/mm3 (0.0-0.1); Basophils Percent Auto 0.9 % (0.2-1.2); Eosinophils Absolute Auto 0.1 K/mm3 (0-0.3); Eosinophils Percent Auto 1.8 % (0-4.4); Immature Granulocyte Absolute 0.02 K/mm3 (0.00-0.031); Immature Granulocyte Percent A 0.4 % (0-0.5); Lymphocytes Absolute Auto 1.61 K/mm3 (0.9-3.2); Mean Corpuscular HGB Conc 34.2 g/dl (32-36); Mean Corpuscular Hemoglobin 29.5 pg (26-34); Mean Corpuscular Volume 86.4 fl (80-100); Monocytes Absolute Auto 0.6 K/mm3 (0.1-0.6); Monocytes Percent Auto 11.4 % (2.6-8.5); Neutrophils Absolute Auto 3.1 K/mm3 (1.3-6.7); Neutrophils Percent Auto 56.5 % (45.5-73.1); Platelet Count Result 184 k/mm3 (150-375); Red Cell Distribution Width 12.9 % (11.5-14.5); White Blood Count 5.6 K/mm3 (4.5-10.0)
[2021-10-17 06:13] LABS: Alanine Aminotransferase 19 U/L (4-35); Albumin Level 3.6 g/dL (3.5-5.1); Alkaline Phosphatase 91 U/L (38-126); Anion Gap 6 mmol/L (8-16); Aspartate Amino Transferase 33 U/L (14-36); Bilirubin,Total 0.7 mg/dL (0.2-1.3); Blood Urea Nitrogen 15 mg/dL (7-17); Calcium 8.5 mg/dL (8.4-10.2); Carbon Dioxide 26 mmol/L (22-30); Chloride 105 mmol/L (98-107); Estimated CRCL calculation 65 ml/min; Estimated Glomerular Filt Rate > 60; Glucose 134 mg/dL (65-110); Potassium 3.8 mmol/L (3.4-5.0); Sodium 137 mmol/L (137-145)
[2021-10-17 08:00] VITALS: BP 124/58; PULSE 84; RESP 18; TEMP 36.4; O2SAT 96
[2021-10-17] MEDS: levETIRAcetam 250 MG TABLET 750 MG PO (08:01)
[2021-10-17] MEDS: PANTOPRAZOLE 40 MG TABLET PO (08:01)
[2021-10-17] MEDS: hydroCHLOROthiazide 12.5 MG CAPSULE PO (08:02)
[2021-10-17] MEDS: LOSARTAN POTASSIUM 50 MG TABLET PO (08:02)
[2021-10-17 12:00] VITALS: BP 124/56; PULSE 88; RESP 20; TEMP 36.5; O2SAT 98
--- NOTE | 2021-10-17 12:28 | PM.DS ---
DS: Admitting Diagnosis Discharge Date 10/17/2021 Admitting Diagnosis Unresponsiveness DS: Discharge Diagnosis Discharge Diagnosis (1) Seizure: Code(s): R56.9 - Unspecified convulsions Status: Acute Assessment and Plan: Concern for non compliance though daughter is concerned she have some mild underlying dementia which may be contributing to her missing her pills on occasion. Keppra level pending at the time of discharge. She was loaded with Keppra and was admitted for close monitoring. Initiated seizure, fall, and aspiration precautions. Patient still has memory issue unsure how much is at baseline. MRI brain for further evaluation for ongoing confusion done which was negative for any acute findings including stroke Keppra dose has been increased at the time of admission was monitored for any further seizure during the hospital stay. She did not have any further seizure during the hospital stay. She remained confused for 1-2 days since admission but slowly improved and was almost back to baseline. This was conformed with her daughter (2) Postictal state: Code(s): R56.9 - Unspecified convulsions Status: Acute Assessment and Plan: Still ongoing confusion. Part of it could be underlying dementia how ever unable to correlate with previous history. Will touch base with family today MRI brain negative. Likely prolonged postictal state possibly had multiple seizures prior to EMS arrival (3) Leukocytosis: Code(s): D72.829 - Elevated white blood cell count, unspecified Status: Acute Assessment and Plan: Multifactorial probably related to seizure and probable aspiration pneumonia continue antibiotic Chest x-ray with atelectasis versus pneumonia Leukocytosis has resolved (4) Abnormal chest x-ray: Code(s): R93.89 - Abnormal findings on diagnostic imaging of other specified body structures Status: Acute Assessment and Plan: On oral Levaquin. Will continue for 3 more days. (5) Prediabetes: Code(s): R73.03 - Prediabetes Status: Acute Assessment and Plan: Blood sugar at goal A1c at 5.1 (6) Hypertension: Code(s): I10 - Essential (primary) hypertension Status: Chronic Assessment and Plan: Blood pressures were reviewed and they are stable. Antihypertensives will be reviewed and resumed as appropriate. DS: Summary Hospital Course Hospital Course: See above Time Spent with Patient Time attestation: Total time spent providing and/or coordinating discharge services: 45 minutes Exam Narrative: GENERAL: The patient is well developed, not in acute distress HEENT: Nonicteric sclerae, PERRLA, EOMI. Oropharynx clear. Moist mucous membranes. Conjunctivae appear well perfused. CHEST: Chest wall is nontender. HEART: Regular rate and rhythm without murmur, rubs, or gallops LUNGS: Clear to auscultation bilaterally. no respiratory distress ABDOMEN: Soft, positive bowel sounds, non-tender, no organomegaly. SKIN: No rash, no excessive bruising, petechiae, or purpura. NEUROLOGIC: Cranial nerves II-XII intact, alert and conversant. Oriented to time place and person. No gross motor deficits. Mild cognitive deficit noted on evaluation EXTREMITIES: no edema, cyanosis or clubbing DS: Data Data Completed and Pending Labs on day of discharge: Labs from last 24 hours 10/17/21 10/17/21 05:37 05:37 WBC 5.6 RBC 4.40 Hgb 13.0 Hct 38.0 MCV 86.4 MCH 29.5 MCHC 34.2 RDW 12.9 Plt Count 184 MPV 9.0 Immature Gran % (Auto) 0.4 Neut % (Auto) 56.5 Lymph % (Auto) 29.0 Cavalier % (Auto) 11.4 H Eos % (Auto) 1.8 Baso % (Auto) 0.9 Lymph # (Auto) 1.61 Cavalier # (Auto) 0.6 Eos # (Auto) 0.1 Baso # (Auto) 0.1 Abs Immat Gran (auto) 0.02 Absolute Neuts (auto) 3.1 Absolute Nucleated RBC 0.0 Nucleated RBC % 0.0 Sodium 137 Potassium 3.8 Chloride 105 Carbon Dioxide 26 Anion
[2021-10-17 14:27] LABS: Levetiracetam Keppra <1.0 mcg/mL (12.0-46.0)
== END 2021-10-17 13:15 | disposition home health service (06) ==
LOC: ANHED 15:51 → ANH3MEDSUR 16:14
PROVIDERS: Physician Assistant; Admitting Provider Hospitalist; Emergency Provider Nurse Practitioner Family; PCP Physician Assistant; Visit Provider Internal Medicine
DX: G40.909 Epilepsy, unspecified, not intractable, without status epilepticus (principal); D72.829 Elevated white blood cell count, unspecified; R91.8 Other nonspecific abnormal finding of lung field; R73.03 Prediabetes; R41.3 Other amnesia; I10 Essential (primary) hypertension; K21.9 Gastro-esophageal reflux disease without esophagitis; G47.33 Obstructive sleep apnea (adult) (pediatric); I27.20 Pulmonary hypertension, unspecified; Z79.51 Long term (current) use of inhaled steroids
CPT/HCPCS: 36415; 70450; 70551; 71045; 80048; 80053; 80076; 80177; 81001; 82550; 82607; 82746; 83036; 83735; 84443; 85025; 87040; 93005; 96361; 96365; 96366; 96367; 96375; 99285; A9270; G0378; J1953; J1956; J2060; J7030

== ENCOUNTER 2022-11-21 13:17 | Emergency (ER) | payer MEDICARE, SELFPAY ==
[2022-11-21 13:17] VITALS: BP 122/80; PULSE 94; RESP 18; TEMP 36.4; O2SAT 98
[2022-11-21 13:22] VITALS: O2SAT 98
--- NOTE | 2022-11-21 13:33 | ED.GENADULT ---
HPI - General Adult General Chief complaint: Seizure Stated complaint: seizure Time Seen by Provider: 11/21/22 13:20 History of Present Illness HPI narrative: 67-year-old female presenting to the emergency department for evaluation of seizure. Patient does have history of dementia and does have a history of seizures for which she takes Keppra. Patient apparently had 08/02 seizure today at the care facility. Daughter states that this was a respite stay to see if the patient likes staying at the care facility. Daughter is unsure if the patient has been receiving the seizure medications regularly. Nursing states that they did give the seizure medications today but daughter is unsure about the previous days. Related Data Home Medications Medication Instructions Recorded Confirmed albuterol sulfate 90 mcg/actuation 2 inh inhalation Q4-6H PRN 01/26/20 10/14/21 aerosol inhaler Shortness Of Breath Or Wheezing cyanocobalamin (vitamin B-12) 1,000 mcg IM MONTHLY 01/26/20 10/14/21 1,000 mcg/mL injection solution hydrochlorothiazide 12.5 mg tablet 12.5 mg PO DAILY 01/26/20 10/14/21 losartan 50 mg tablet 50 mg PO DAILY 01/26/20 10/14/21 omeprazole 40 mg capsule,delayed 40 mg PO DAILY 01/26/20 10/14/21 release Allergies Allergy/AdvReac Type Severity Reaction Status Date / Time aspirin Allergy Unknown Unknown Verified 11/03/21 16:09 Penicillins Allergy Unknown Unknown Verified 11/03/21 16:09 Review of Systems Review of Systems: All systems reviewed & are unremarkable except as noted in HPI and below PMFSH Past Medical History Medical History Gastroesophageal reflux disease Hypertension Memory loss Progressive short-term memory loss within the last 2 years. No official dementia diagnosis. Obstructive sleep apnea Noncompliant with CPAP Prediabetes Pulmonary hypertension Seizure Surgical History Surgical History History of cholecystectomy History of hysterectomy Family History Family History Mother Family history of cardiovascular disease, Onset Age: 87 Diabetes mellitus, Onset Age: 87 Cerebrovascular accident, Onset Age: 87 Colon cancer Father Family history of cardiovascular disease, Onset Age: 83 Diabetes mellitus Son No problems noted. Sibling Breast cancer Sibling Heart attack Social History Social History (Updated 10/14/21 @ 20:47 by Cintia Lugo PA-C) Social History: The patient lives in [place] with her . They have 3 children, 2 daughters and 1 son. She smoked remotely as a young woman. No alcohol or illicit substance use. Her is currently in the hospital and is quite ill and thus her current surrogate decision makers are 3 children, Wander Darden, Tiffanie Darden, and Gudelia Bagley. Code status: Full code. Living arrangements: with family Occupation/Education: unemployed Spiritual care concerns: Yes (Mormonism) Exam Narrative: APPEARANCE: Well-appearing no distress HEAD: normocephalic, atraumatic. EYES: PERRLA/EOMI, conjunctivae clear. NOSE: Normal no drainage EARS:TMS clear with good light reflex. THROAT: Pharynx clear, no exudate. NECK: Supple. No adenopathy, no masses. RESPIRATORY: Airway patent, respirations nonlabored. Clear to auscultation bilaterally, no rales, rhonchi, wheezing. CARDIOVASCULAR: Regular rate and rhythm without murmurs rubs or gallops. ABDOMINAL: Soft, nontender, nondistended, normal bowel sounds MUSCULOSKELETAL: Moves all extremities. Strength/ROM intact, No edema, No calf tenderness. NEURO: Alert. Cranial nerves II through XII intact. Grossly intact SKIN: Warm, dry. Normal Color Course Course Emergency Course: 59-year-old female presented to ED for evaluation after having a seizure. Patient does have history of dementia and daughter states that the renee
[2022-11-21 14:00] LABS: Basophils Absolute Auto 0.1 K/mm3 (0.0-0.1); Basophils Percent Auto 1.5 % (0.2-1.2); Eosinophils Absolute Auto 0.1 K/mm3 (0-0.3); Eosinophils Percent Auto 1.3 % (0-4.4); Hematocrit 37.9 % (37.0-47.0); Hemoglobin 12.6 g/dL (12.0-15.0); Immature Granulocyte Absolute 0.03 K/mm3 (0.00-0.031); Immature Granulocyte Percent A 0.6 % (0-0.5); Lymphocytes Absolute Auto 1.91 K/mm3 (0.9-3.2); Lymphocytes Percent Auto 36.1 % (18.3-44.2); Mean Corpuscular HGB Conc 33.2 g/dl (32-36); Mean Corpuscular Hemoglobin 29.8 pg (26-34); Mean Corpuscular Volume 89.6 fl (80-100); Mean Platelet Volume 9.4 fl (7.4-10.4); Monocytes Absolute Auto 0.4 K/mm3 (0.1-0.6); Monocytes Percent Auto 7.8 % (2.6-8.5); Neutrophils Absolute Auto 2.8 K/mm3 (1.3-6.7); Neutrophils Percent Auto 52.7 % (45.5-73.1); Platelet Count Result 230 k/mm3 (150-375); Red Blood Count 4.23 M/mm3 (4.2-5.4); Red Cell Distribution Width 13.5 % (11.5-14.5); White Blood Count 5.3 K/mm3 (4.5-10.0)
[2022-11-21 14:12] VITALS: PULSE 87
[2022-11-21 14:15] VITALS: O2SAT 99
[2022-11-21 14:16] VITALS: BP 102/63; PULSE 88; RESP 18; O2SAT 99
[2022-11-21] MEDS: levETIRAcetam 500MG/NACL 100ML 500 MG/100 ML BAG 400 MG IVPB (14:22)
[2022-11-21 14:23] LABS: Alanine Aminotransferase 25 U/L (6-35); Albumin Level 3.7 g/dL (3.5-5.1); Alkaline Phosphatase 77 U/L (38-126); Anion Gap 8 mmol/L (8-16); Aspartate Amino Transferase 34 U/L (14-36); Bilirubin,Total 0.5 mg/dL (0.2-1.3); Blood Urea Nitrogen 14 mg/dL (7-17); Calcium 8.4 mg/dL (8.4-10.2); Carbon Dioxide 25 mmol/L (22-30); Chloride 103 mmol/L (98-107); Estimated CRCL calculation 63 ml/min; Estimated Glomerular Filt Rate > 60; Glucose 113 mg/dL (65-110); Potassium 4.2 mmol/L (3.4-5.0); Sodium 136 mmol/L (137-145)
[2022-11-21 14:37] LABS: Influenza A QL RT-PCR Negative (Negative); Influenza B QL RT-PCR Negative (Negative); RSV RNA, RT-PCR Negative (Negative); SARS-CoV-2 RNA PCR Negative (Negative)
[2022-11-21 14:48] LABS: Appearance Urine Clear (Clear); Bacteria Urine None Seen /hpf; Bilirubin Urine Negative (Negative); Blood Urine Negative (Negative); Calcium Oxalate Crystals Urine Present /hpf; Color Urine Yellow (Yellow); Glucose Urine UA Negative (Negative); Ketones Urine Negative (Negative); Leukocyte Esterase Ur Trace LEU/UL (Negative); Nitrate Urine Negative (Negative); Non Pathogenic Casts 0-2; Protein Urine Negative (Negative); RBC Urine 0-2 /hpf (0-2); Specific Grav Ur 1.016 (1.001-1.035); Squamous Epithelial Cell Urine None seen /hpf (Few); Urobilinogen Urine 0.2 mg/dL (<2.0); WBC Urine 0-5 /hpf
[2022-11-21 14:49] LABS: Add Urine Microscopic? YES
[2022-11-21 15:00] VITALS: BP 100/77; PULSE 84; RESP 18; O2SAT 98
[2022-11-25 13:02] LABS: Levetiracetam Keppra 2.5 mcg/mL (6.0-46.0)
== END 2022-11-21 15:00 | disposition home or self-care (01) ==
PROVIDERS: Emergency Provider Emergency Medicine; PCP Physician Assistant
DX: R56.9 Unspecified convulsions (principal); I10 Essential (primary) hypertension; F03.90 Unspecified dementia, unspecified severity, without behavioral disturbance, psychotic disturbance, mood disturbance, and anxiety
CPT/HCPCS: 36415; 80053; 80177; 81001; 85025; 87637; 96365; 99284; J1953

== ENCOUNTER 2023-11-01 11:39 | Emergency (ER) | payer MEDICARE, SELFPAY ==
[2023-11-01] VITALS (17 sets, daily range): BP systolic 95–128; BP diastolic 50–102; PULSE 45–68; RESP 12–23; TEMP 36.8; O2SAT 96–100
--- NOTE | ~2023-11-01 | XR_ITS ---
EXAMINATION: XR chest 2V DATE: 11/01/2023 13:06 INDICATION: Productive cough TECHNIQUE: PA and lateral views of the chest were obtained. COMPARISON: None FINDINGS: The lungs are clear with no focal airspace opacities, pulmonary edema, pleural effusion or pneumothor ax. The cardiomediastinal silhouette is normal. Moderate thoracic spondylosis. Cholecystectomy clips in the right upper quadrant. IMPRESSION: 1. No acute cardiopulmonary disease. Reviewed, dictated and finalized at location A.
--- NOTE | 2023-11-01 12:07 | ED.GENADULT ---
HPI - General Adult General Chief complaint: Seizure Stated complaint: seizures Time Seen by Provider: 11/01/23 11:59 History of Present Illness HPI narrative: Patient is a 68-year-old female with history of seizure disorder who presents ER with concerns for seizure. This morning her upper extremities would randomly jerk and of flexing fashion every 1-2 seconds. This lasted for approximately 30 minutes. It improved after she took her Keppra. Caregiver has not seen this before and felt it would be prudent to have her evaluated. No recent change in medical status. No fevers or chills or sweats. No missed medication dosages. No loss of consciousness during the event. Caregiver reports that the family told her patient's legs usually will jerk when she has a seizure in that she seems little bit more spacey. Patient has early stages of dementia according to the caregiver. Related Data Home Medications Medication Instructions Recorded Confirmed albuterol sulfate 90 mcg/actuation 2 inh inhalation Q4-6H PRN 01/26/20 10/14/21 aerosol inhaler Shortness Of Breath Or Wheezing cyanocobalamin (vitamin B-12) 1,000 mcg IM MONTHLY 01/26/20 10/14/21 1,000 mcg/mL injection solution hydrochlorothiazide 12.5 mg tablet 12.5 mg PO DAILY 01/26/20 10/14/21 losartan 50 mg tablet 50 mg PO DAILY 01/26/20 10/14/21 omeprazole 40 mg capsule,delayed 40 mg PO DAILY 01/26/20 10/14/21 release Allergies Allergy/AdvReac Type Severity Reaction Status Date / Time aspirin Allergy Unknown Unknown Verified 11/03/21 16:09 Penicillins Allergy Unknown Unknown Verified 11/03/21 16:09 Review of Systems Review of Systems: All systems reviewed & are unremarkable except as noted in HPI and below Constitutional: Constitutional: Reports no additional constitutional complaints ENT: Reports system reviewed and no additional complaints, except as documented Cardiovascular: Cardiovascular: Reports no additional cardiovascular complaints Respiratory: Respiratory: Reports no additional respiratory complaints Gastrointestinal: Gastrointestinal: Reports no additional gastrointestinal complaints Neurologic: Denies syncope, Denies headache(s), Denies focal weakness and Denies numbness Comments: Possible seizure PMFSH Past Medical History Medical History Gastroesophageal reflux disease Hypertension Memory loss Progressive short-term memory loss within the last 2 years. No official dementia diagnosis. Obstructive sleep apnea Noncompliant with CPAP Prediabetes Pulmonary hypertension Seizure Surgical History Surgical History History of cholecystectomy History of hysterectomy Family History Family History Mother Family history of cardiovascular disease, Onset Age: 87 Diabetes mellitus, Onset Age: 87 Cerebrovascular accident, Onset Age: 87 Colon cancer Father Family history of cardiovascular disease, Onset Age: 83 Diabetes mellitus Son No problems noted. Sibling Breast cancer Sibling Heart attack Social History Social History (Updated 10/14/21 @ 20:47 by Cintia Lugo PA-C) Social History: The patient lives in [place] with her . They have 3 children, 2 daughters and 1 son. She smoked remotely as a young woman. No alcohol or illicit substance use. Her is currently in the hospital and is quite ill and thus her current surrogate decision makers are 3 children, Wander [place], Tiffanie Meyer'Brien, and Gudelia Bagley. Code status: Full code. Living arrangements: with family Occupation/Education: unemployed Spiritual care concerns: Yes (Restorationist) Exam Narrative: GENERAL: Well-appearing, well-nourished, and in no acute distress. HEAD: Normocephalic, atraumatic. EYES: PERRL and EOMI. ENT: Mucous membranes moist. CHEST: Clear to auscultation.
--- NOTE | 2023-11-01 13:37 | PC.NURSE ---
Called phlebotomy for assistance with blood draw on pt.
--- NOTE | 2023-11-01 14:36 | PC.NURSE ---
Called phlebotomy or assistance to draw pts labs again.
[2023-11-01 14:54] LABS: Basophils Absolute Auto 0.1 K/mm3 (0.0-0.1); Basophils Percent Auto 1.3 % (0.2-1.2); Eosinophils Absolute Auto 0.1 K/mm3 (0-0.3); Eosinophils Percent Auto 2.1 % (0-4.4); Hematocrit 40.9 % (37.0-47.0); Hemoglobin 13.6 g/dL (12.0-15.0); Immature Granulocyte Absolute 0.02 K/mm3 (0.00-0.031); Immature Granulocyte Percent A 0.4 % (0-0.5); Lymphocytes Absolute Auto 1.72 K/mm3 (0.9-3.2); Lymphocytes Percent Auto 36.2 % (18.3-44.2); Mean Corpuscular HGB Conc 33.3 g/dl (32-36); Mean Corpuscular Volume 90.3 fl (80-100); Mean Platelet Volume 9.2 fl (7.4-10.4); Monocytes Absolute Auto 0.4 K/mm3 (0.1-0.6); Monocytes Percent Auto 7.4 % (2.6-8.5); Neutrophils Absolute Auto 2.5 K/mm3 (1.3-6.7); Neutrophils Percent Auto 52.6 % (45.5-73.1); Platelet Count Result 185 k/mm3 (150-375); Red Blood Count 4.53 M/mm3 (4.2-5.4); Red Cell Distribution Width 12.5 % (11.5-14.5); White Blood Count 4.8 K/mm3 (4.5-10.0)
[2023-11-01 15:12] LABS: Alanine Aminotransferase 20 U/L (6-35); Alkaline Phosphatase 86 U/L (38-126); Anion Gap 3 mmol/L (4-12); Aspartate Amino Transferase 36 U/L (14-36); Bilirubin,Total 0.6 mg/dL (0.2-1.3); Blood Urea Nitrogen 18 mg/dL (7-17); Calcium 9.1 mg/dL (8.4-10.2); Carbon Dioxide 28 mmol/L (22-30); Chloride 106 mmol/L (98-107); Estimated CRCL calculation 79 ml/min; Estimated Glomerular Filt Rate > 60; Glucose 93 mg/dL (65-110); Potassium 4.5 mmol/L (3.4-5.0); Sodium 137 mmol/L (137-145)
[2023-11-01 16:01] LABS: Appearance Urine Clear (Clear); Bacteria Urine None Seen /hpf; Bilirubin Urine Negative (Negative); Blood Urine Negative (Negative); Color Urine Yellow (Yellow); Glucose Urine UA Negative (Negative); Ketones Urine Negative (Negative); Leukocyte Esterase Ur 1+ LEU/UL (Negative); Need Manual Microscopic Reviewed; Nitrate Urine Negative (Negative); Non Pathogenic Casts 0-2; Protein Urine Negative (Negative); RBC Urine 0-2 /hpf (0-2); Specific Grav Ur 1.012 (1.001-1.035); Squamous Epithelial Cell Urine None Seen /hpf (Few); WBC Urine 0-5 /hpf (0-3)
[2023-11-01 16:03] LABS: Add Urine Microscopic? YES
== END 2023-11-01 17:03 | disposition home or self-care (01) ==
PROVIDERS: Emergency Provider Emergency Medicine; PCP Physician Assistant
DX: G40.909 Epilepsy, unspecified, not intractable, without status epilepticus (principal); K21.9 Gastro-esophageal reflux disease without esophagitis; I10 Essential (primary) hypertension; G47.30 Sleep apnea, unspecified; I27.20 Pulmonary hypertension, unspecified
CPT/HCPCS: 36415; 71046; 80053; 81001; 83735; 85025; 99283

== ENCOUNTER 2023-12-14 10:19 | Emergency (ER) | payer MEDICARE, SELFPAY ==
--- NOTE | 2023-12-14 10:26 | ED_ITS ---
HPI - Female Genitourinary General Chief complaint: Urogenital-Female Stated complaint: uti symptoms Related Data Home Medications Medication Instructions Recorded Confirmed cyanocobalamin (vitamin B-12) 1,000 mcg IM MONTHLY 01/26/20 12/14/23 1,000 mcg/mL injection solution losartan 50 mg tablet 50 mg PO DAILY 01/26/20 12/14/23 omeprazole 40 mg capsule,delayed 20 mg PO DAILY 01/26/20 12/14/23 release donepezil 10 mg tablet 10 mg PO HS 12/14/23 12/14/23 sertraline 50 mg tablet 50 mg PO DAILY 12/14/23 12/14/23 Allergies Allergy/AdvReac Type Severity Reaction Status Date / Time aspirin Allergy Unknown Unknown Verified 11/03/21 16:09 Penicillins Allergy Unknown Unknown Verified 11/03/21 16:09 REPLACED BY [facility] Past Medical History Medical History Gastroesophageal reflux disease Hypertension Memory loss Progressive short-term memory loss within the last 2 years. No official dementia diagnosis. Obstructive sleep apnea Noncompliant with CPAP Prediabetes Pulmonary hypertension Seizure Surgical History Surgical History History of cholecystectomy History of hysterectomy Family History Family History Mother Family history of cardiovascular disease, Onset Age: 87 Diabetes mellitus, Onset Age: 87 Cerebrovascular accident, Onset Age: 87 Colon cancer Father Family history of cardiovascular disease, Onset Age: 83 Diabetes mellitus Son No problems noted. Sibling Breast cancer Sibling Heart attack Social History Social History (Updated 10/14/21 @ 20:47 by Cintia Lugo PA-C) Social History: The patient lives in [place] with her . They have 3 children, 2 daughters and 1 son. She smoked remotely as a young woman. No alc ohol or illicit substance use. Her is currently in the hospital and is quite ill and thus her current surrogate decision makers are 3 children, Wander Casey, Tiffanie Casey, and Gudelia Bagley. Code status: Full code. Living arrangements: with family Occupation/Education: unemployed Spiritual care concerns: Yes (Jain) Discharge Plan Discharge Prescriptions: No Action donepezil 10 mg tablet 10 mg PO HS sertraline 50 mg tablet 50 mg PO DAILY levetiracetam 1,000 mg tablet 1,000 mg PO Q12H Qty: 60 8RF losartan 50 mg tablet 50 mg PO DAILY omeprazole 40 mg capsule,delayed release(DR/EC) 20 mg PO DAILY cyanocobalamin (vitamin B-12) 1,000 mcg/mL solution 1,000 mcg IM MONTHLY Follow-up/Referrals: Clifford,LUCAS Barroso [Primary Care Provider] -
[2023-12-14 10:31] VITALS: BP 111/57; PULSE 64; RESP 16; TEMP 36.9; O2SAT 98
== END 2023-12-14 11:21 | disposition left against medical advice (07) ==
LOC: EXPTROY 10:24
PROVIDERS: Emergency Provider Nurse Practitioner; PCP Physician Assistant
DX: Z53.21 Procedure and treatment not carried out due to patient leaving prior to being seen by health care provider (principal)
CPT/HCPCS: 99199

== ENCOUNTER 2024-10-29 13:03 | Emergency (ER) | payer MEDICARE, SELFPAY ==
[2024-10-29] VITALS (26 sets, daily range): BP systolic 91–131; BP diastolic 42–79; PULSE 40–65; RESP 14–21; TEMP 36.9; O2SAT 96–100
--- OUTSIDE RECORDS SUMMARY | 2024-10-29 13:13 | XMS_ITS | Encounter Summary ---
Author Organization [facility] Facility Care Team Providers Care Director Of Land Name Role Phone Awa Torres MD Primary Care Provider Chio Horton Primary Care Provider [phone] Tamara Wilson MD Primary Care Provi skylar Chio Horton Unavailable Chio Horton Primary Care Provider [phone] Tamara Wilson MD Unavailable [phone] Lalito HAYDEN MD, Tacho Sylvester Unavailable [phone] Clemencia Sandy RADIO DIVISION OFFICER Unavailable [phone] Kenneth Cruz RADIO DIVISION OFFICER Unavailable [phone] Micki Schmitz COIN MACHINE COLLECTOR Unavailable [phone] MoraesMyriam REHABILITATION THERAPIST Unavailable [phone] MoraesMyriam REHABILITATION THERAPIST Unavailable [phone] MoraesMyriam REHABILITATION THERAPIST Unavailable [phone] Encounter Details Date Type Department Care Team (Latest Contact Info) Description 08/09/2017 Orders Only [facility] Provider, Historical, MD [address] [place] [id number] Social History Tobacco Use Types Packs/Day Years Used Date Smoking Tobacco: Never Assessed Comments Unknown Sex and Gender Information Value Date Recorded Sex Assigned at Not on file Legal Sex Female 10:22 PM 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 Historical Provider Final Res ult documented in this encounter Visit Diagnoses Not on filedocumented in this encounter Additional Health Concerns Infection Onset Date Last Indicated Resolved Time COVID: Suspected 09/29/2022 09/29/2022 09/30/2022 12:15 AM CDT COVID: Suspected 09/30/2022 09/30/2022 10/03/2022 3:05 AM CDT documented as of this encounter Care Teams Director Of Land Relationship Specialty Start Date End Date Awa Torres MD [address] [facility] [address] [place] [address] PCP - General 11/20/16 10/08/18 Chio Horton PA [address] [place] [address] PCP - General 10/09/18 10/18/18 Tamara Wilson MD [address] [place] [address] PCP - General Family Medicine 10/19/18 10/19/18 Chio Horton PA [address] [place] [address] PCP - General Critical Care Med 10/20/18 Chio Horton PA [address] [place] [address] Physician Housecalls Nurse Critical Care Med 10/19/18 02/21/19 Tamara Wilson MD [address] [place] [address] Consulting Physician Family Medicine 02/22/19 Tacho Starkey III, MD [address] [facility] [address] [place] [address] Consulting Physician Rheumatology 03/16/19 Clemencia Sandy LPN [address] [facility] [address] [place] [address] Strategic Account Executive 09/23/22 09/30/22 Kenneth Cruz RADIO DIVISION OFFICER [address] [place] [address] ACO Care Roll Bucker 10/05/22 10/13/22 Micki Schmitz, [facility] [address] [place] [address] Lead Php Developer Public Interviewer 10/08/22 11/03/22 Myriam Moraes NP [address] [facility] [address] [place] [address] Nurse Practitioner Neurology 12/20/23 Myriam Moraes NP [address] [facility] [address] [place] [address] Nurse Practitioner Neurology 03/24/24 Myriam Moraes, PJ [address] [facility] [address] [place] [id number] Nurse Practitioner Neurology 03/28/24 documented as of this encounter
--- OUTSIDE RECORDS SUMMARY | 2024-10-29 13:13 | XMS_ITS | Referral Summary ---
Author Organization [address] Address [address] [place] [id number] Care Team Providers Care Veneer Measurer Name Role Phone Chio Horton Primary Care Provider [phone] Tamara Wilson MD Unavailable [phone] Lalito HAYDEN MD, Tacho Sylvester Unavailable Moraes, Myriam A. FIBERGLASS QUALITY TECHNICIAN Unavailable [phone] Moraes, Myriam A. FIBERGLASS QUALITY TECHNICIAN Unavailable [phone] Moraes, Myriam A. FIBERGLASS QUALITY TECHNICIAN Unavailable [phone] Encounters Date Type Department Care Team Description 10/26/2024 12:30 PM CDT Home Care Visit [address] [place] [address] Heena Cazares, FISHING ROD MECHANIC PT HOME VISIT 10/24/2024 2:00 PM CDT Home Care Visit [address] [place] [address] Elizabeth Flores, PT PT REASSESSMENT 10/19/2024 Home Care Visit [address] [place] [address] Rhonda Hightower, OT CASE COMMUNICATION 10/19/2024 11:00 AM CDT Home Care Visit [address] [place] [address] Heena Cazares, FISHING ROD MECHANIC PT HOME VISIT 10/19/2024 12:30 PM CDT Home Care Visit [address] [place] [address] Rhonda Hightower, OT OT DISCIPLINE DISCHARGE 10/17/2024 10:00 AM CDT Home Care Visit [address] [place] [address] Heena Cazares, FISHING ROD MECHANIC PT HOME VISIT 10/16/2024 4:00 PM CDT Home Care Visit [address] [place] [address] Tia Singleton, SHEPPARD OT HOME VISIT 10/13/2024 11:00 AM CDT Home Care Visit [address] [place] [address] Heena Cazares, FISHING ROD MECHANIC PT HOME VISIT 10/12/2024 12:00 PM CDT Home Care Visit [address] [place] [address] Rhonda Hightower, OT OT REASSESSMENT 10/10/2024 4:00 PM CDT Home Care Visit [address] [place] [address] Negro Singletona, SHEPPARD OT HOME VISIT 10/09/2024 9:30 AM CDT Home Care Visit [address] [place] [address] Heena Cazares, FISHING ROD MECHANIC PT HOME VISIT 10/06/2024 10:00 AM CDT Home Care Visit [address] [place] [address] Elizabeth Flores, PT PT REASSESSMENT 10/04/2024 2:30 PM CDT Home Care Visit [address] [place], [place] [address] Elizabeth Flores, PT PT HOME VISIT 10/04/2024 4:00 PM CDT Home Care Visit [address] [place] [address] Areli, Tia, SHEPPARD OT HOME VISIT 2024 3:00 PM CDT Home Care Visit [address] [place] [address] Areli, Tia, SHEPPARD OT HOME VISIT 09/29/2024 2:30 PM CDT Home Care Visit [address] [place] [address] Areli, Tia, SHEPPARD OT HOME VISIT 09/29/2024 10:00 AM CDT Home Care Visit [address] [place] [address] Heena Cazares, FISHING ROD MECHANIC PT HOME VISIT 09/27/2024 2:30 PM CDT Home Care Visit [address] [place] [address] Areli Tia, SHEPPARD OT HOME VISIT 09/26/2024 11:00 AM CDT Home Care Visit [address] [place] [address] Heena Cazares, FISHING ROD MECHANIC PT HOME VISIT 09/22/2024 Home Care Visit [address] [place] [address] Isabella Rodriguez, RN NURSE MED RECON FOR THERAPY 09/22/2024 12:00 PM CDT Home Care Visit [address] [place] [address] Heena Cazares, FISHING ROD MECHANIC PT HOME VISIT 09/21/2024 Home Care Visit [address] [place] [address] Rhonda Hightower, OT CASE COMMUNICATION 09/21/2024 Home Care Visit [address] [place] [address] Isabella Rodriguez, RN NURSE MED RECON FOR THERAPY 09/21/2024 12:30 PM CDT Home Care Visit [address] [place] [address] Rhonda Hightower, OT OT INITIAL EVALUATION 09/20/2024 Plan of Care Documentation [address] [place] [address] 09/19/2024 10:00 AM CDT Home Care Visit [address] [place] [address] Elizabeth Flores, PT PT OASIS START OF CARE 09/17/2024 Home Care Visit [address] [place] [address] Alisa Billingsley RN TELEPHONE ENCOUNTER 09/17/2024 Telephone [facility] [address] [place] [phone] Chio Horton PA After Hours 09/16/2024 Home Care Visit [address] [place] [address] Alisa Billingsley RN TELEPHONE ENCOUNTER 09/11/2024 Travel 09/08/2024 Orders Only [facility] Medical [facility] [address] [place] [phone] Chio HortonLUCAS Syncope, unspecified syncope type; Weakness; Sinus bradycardia; Lightheadedness 09/08/2024 Results Follow-Up [address] [phone] Chio Horton PA 09/06/2024 12:30 PM CYTOLOGY LABORATORY MANAGER - 09/06/2024 11:59 PM CYTOLOGY LABORATORY MANAGER Hospital Encounter [facility] Cardiac Testing [address] [place] [address] Seizure disorder (HCC) Discharge Disposition: Discharge to home or self care 09/06/2024 9:30 AM CYTOLOGY LABORATORY MANAGER Office Visit [address] [phone] Chio Horton PA Orthostatic hypotension (Primary Dx); Syncope, unspecified syncope type; Weakness; Sinus bradycardia; Lightheadedness; Acute cystitis without hematuria; Alzheimer's disease, unspecified (HCC); Seizure disorder (HCC) 08/28/2024 E-Visit [address] [phone] Chio Horton PA Blood pressure 08/28/2024 Telephone [facility] [address] [place] [phone] Myriam Moraes NP medical advise (Medical Advise ) 08/21/[address] [phone] Chio Horton PA Medical Question/Miscellaneo us 08/08/2024 1:00 PM CYTOLOGY LABORATORY MANAGER Therapy [facility] OP Physical Therapy [address] [place] [address] [address] [place], [place] [id number] Gait disorder; Paresthesia of skin from Last 3 Months Allergies Active Allergy Reactions Criticality Noted Date Comments Clonidine-Chlorthalidone Palpitations Low 9 Penicillin G Potassium Hives Medium 10/20/2018 hives Medications cholecalciferol, vitamin D3, (VITAMIN D3 ORAL)Indications :vitamin D3 deficiency Take 5,000 Units by mouth daily Active fish sgc-nissh-5-vit C-vit E 2,000-650-12 mg/2.5 gram emulsion in packetIndication s: heart health Take 1,200 Int'l Units by mouth 2 (two) times a day 60 each 11 1 Active Additional Information Patient taking differently:1,200 Int'l Units oralDaily, take 1 tab/cap once daily, Indications: heart health , Reported on 09/06/2024 cyanocobalamin (Vitamin B-12) 100 mcg tabletIndication s:Prevention of Vitamin B12 Deficiency Take 1 tablet by mouth every other day Active clotrimazole 1 % creamIndications :cutaneous candidiasis Apply topically 2 (two) times a day 30 g 4 Active Additional Information Patient taking differently: 1 Applicationtopical2 times daily PRN, rash, Indications: cutaneous candidiasis, Reported on 09/06/2024 levETIRAcetam (KEPPRA) 1,000 mg tabletIndication s:Tonic-Clonic Epilepsy Treatment Adjunct Take 1 tablet (1,000 mg total) by mouth 2 (two) times a day 180 tablet 3 4 12/16/19 25 Active atorvastatin (LIPITOR) 10 mg tabletIndication s:hyperlipidemia Take 1 tablet (10 mg total) by mouth daily 90 tablet 3 4 Active memantine (NAMENDA) 10 mg tabletIndication s:Moderate to Severe Alzheimer's Type Dementia Take 1 tablet (10 mg total) by mouth 2 (two) times a day 180 tablet 1 5 01/11/20 25 Active donepeziL (ARICEPT) 10 mg tabletIndication s:Moderate to Severe Alzheimer's Type Dementia Take 1 tablet (10 mg total) by mouth nightly 90 tablet 1 5 01/11/20 25 Active sertraline (ZOLOFT) 100 mg tabletIndication s:depression Take 1 tablet (100 mg total) by mouth daily 90 tablet 1 5 Active omeprazole (PriLOSEC) 20 mg capsuleIndicatio ns:Treatment of Non-Bleeding Gastric Disorder Take 1 capsule (20 mg total) by mouth daily as needed (heartburn) 90 capsule 1 5 Active Active Problems Problem Noted Date Diagnosed Date Colon polyps 03/06/2024 Colon cancer screening 03/06/2024 At moderate risk for fall 02/24/2024 Assessment & Plan (02/24/2024 12:22 PM CDT): Recently had occupational therapy No aspirin due to history of fall and subdural hematoma Continue to be cautious with movement I discontinued her losartan today for risk of falling due to hypotension Agitation 08/26/2023 Assessment & Plan (02/24/2024 12:19 PM CDT): Better with Zoloft, continue Assessment & Plan (08/26/2023 12:00 PM CYTOLOGY LABORATORY MANAGER): Ongoing issue. Discussed taking something to help with her agitation and she declined. Likely multifactorial and related to so many life changing events, grief, dementia. I also recommended her discussing her frustrations with the people that a living with her to see if she can assist them in any way such as dusting Recurrent mild major depressive disorder with an xiety 10/07/2022 Assessment & Plan (02/24/2024 12:16 PM CDT): Chronic. Stable. Continue sertraline Assessment & Plan (10/19/2022 1:06 PM CDT): Chronic. Stable. Continue sertraline History of subdural hematoma 09/30/2022 Assessment & Plan (02/24/2024 12:19 PM CDT): No aspirin Mixed hyperlipidemia 09/08/2022 Assessment & Plan (02/24/2024 11:45 AM CDT): Continue atorvastatin Recheck lipid panel Discuss it this time with the weight loss he atorvastatin as more of a preventative medication because she does have microvascular ischemic changes on her last CT head Assessment & Plan (08/26/2023 11:59 AM CYTOLOGY LABORATORY MANAGER): Chronic. Stable. Continue atorvastatin. LDL is at goal Assessment & Plan (10/19/2022 1:09 PM CDT): Chronic. Stable. Continue atorvastatin. Assessment & Plan (09/18/2022 12:33 PM CYTOLOGY LABORATORY MANAGER): Stable, continue statin Assessment & Plan (09/08/2022 6:38 AM CYTOLOGY LABORATORY MANAGER): Continue Lipitor 10 mg daily Thyroid nodule incidentally noted on imaging harrison dy 09/08/2022 Assessment & Plan (02/24/2024 12:16 PM CDT): The patient did not get the ultrasound completed last year, reordered and discussed with daughter Assessment & Plan (10/19/2022 2:35 PM CDT): Noted on CT head without contrast 09/02/22, 1.4 cm hypoattenuating right thyroid lobe nodule. -we will need to order ultrasound thyroid at next annual visit Assessment & Plan (09/08/2022 6:40 AM CYTOLOGY LABORATORY MANAGER): 1.4 cm thyroid nodule. Nonemergent thyroid ultrasound will be recommended for further evaluation as outpatient. Alzheimer's disease, unspecified 07/24/2022 Assessment & Plan (02/24/2024 12:19 PM CDT): Chronic, worsening Managed by Neurology Continue Aricept and Namenda Psychiatry referral has been placed Assessment & Plan (10/19/2022 2:35 PM CDT): Chronic. Stable. Continue donepezil- consult with Neurology regarding side effects of nausea. Assessment & Plan (09/18/2022 12:35 PM CYTOLOGY LABORATORY MANAGER): MOCA 8/30, pt with good family support. No behaviors, cooperative with care. Assessment & Plan (09/15/2022 4:34 PM CYTOLOGY LABORATORY MANAGER): Increased confusion reported by staff, patient currently back to baseline. MOCA 8/30 - without current behaviors. Continue Aricept. UA indicates culture Assessment & Plan (09/09/2022 7:02 PM CYTOLOGY LABORATORY MANAGER): MOCA 30 indicating severe cognitive decline, patient is cooperative with care, no behaviors. nutrition services associate discussing care needs with family after discharge from therapy. Continue Aricept Osteopenia 01/15/2021 Assessment & Plan (02/24/2024 11:44 AM CDT): She is due for bone density, ordered Calcium and vitamin-D, weight-bearing exercise encouraged Seizure disorder 09/17/2020 Assessment & Plan (02/24/2024 12:19 PM CDT): Continue Keppra, continue to follow with Neurology, she agreed with the importance of not missing doses Assessment & Plan (10/19/2022 1:10 PM CDT): Chroinc. Stable, Continue Keppra. Assessment & Plan (09/18/2022 12:35 PM CYTOLOGY LABORATORY MANAGER): Stable, continue Keppra, followed Keppra level is pending. Follow up with neurology - Dr. Douglass Assessment & Plan (09/08/2022 6:36 AM CYTOLOGY LABORATORY MANAGER): Patient presented due to AMS and 2 seizure episodes, in the setting of med noncompliance. Keppra resumed, mental status progressively improved. Will continue Keppra 1000 mg b.i.d., recommended to repeat Keppra level on 09/18/2022. Maintain seizure precaution. Follows up with Neurology, Dr. Douglass Assessment & Plan (05/26/2021 11:16 AM CYTOLOGY LABORATORY MANAGER): Patient continues on levetiracetam 500 mg b.i.d. at this time with no tolerability issues nor seizures reported over the past year. I have renewed her levetiracetam as prescribed. She will follow-up in neurology clinic in 1 year. Assessment & Plan (09/17/2020 9:12 AM CYTOLOGY LABORATORY MANAGER): Patient has had a resumption of generalized seizure after approximately 40 years being seizure-free. She was hospitalized at [facility] and seen by Dr. Bradshaw in [place] thereafter. I will request medical records from [facility] as well as from Dr. Bradshaw. I have renewed her levetiracetam 500 mg b.i.d. at this time. As she has filled a 6 month seizure-free interval since her last seizure she can resume driving under [place] guidelines and this has been discussed and confirmed with patient. I will plan on seeing her back in 1 year for re-evaluation. If she would happen to have any seizures in the interim she is to let me know. Sjogren's syndrome 09/20/2019 Assessment & Plan (02/24/2024 12:18 PM CDT): Denies joint pain and muscle pain at this time, no treatment Medicare annual wellness visit, subsequent 04/24 Assessment & Plan (02/24/2024 11:44 AM CDT): PAP- hysterectomy, not for cancer Mamm- up-to-date DEXA- due, ordered CScope- patient agreed to a colonoscopy today, ordered Hep C Screen- neg Tdap- 04/24/19 PPSV23- 01/15/2021 PCV13- 01/10/2020 Shingrix- complete Stress test- 07/2017, nml. Flu- 04/24/19 Covid vaccination- recommended Exercise 5 days a week, 30 mins per day recommended. Eat a heart healthy diet consisting of good, healthy protein (eggs, nuts, peanut butter, chicken, fish, turkey, less pork/beef), lots of vegetables, less carbohydrates and less sugar. Annual physical recommended Assessment & Plan (02/23/2023 2:39 PM CDT): PAP- hysterectomy, not for cancer Mamm- 05/03/2020 nml, ordered DEXA- 05/03/2020 osteopenia, ordered CScope- 2006, mom with colon cancer, recommended but patient declined. Ordered Apr 2019, pt keeps putting it off, cologuard ordered Hep C Screen- neg Tdap- 04/24/19 PPSV23- 01/15/2021 PCV13- 01/10/2020 Shingrix- recommended in 1 month at pharmacy Stress test- 07/2017, nml. Flu- 04/24/19 Covid vaccination- recommended Exercise 5 days a week, 30 mins per day recommended. Eat a heart healthy diet consisting of good, healthy protein (eggs, nuts, peanut butter, chicken, fish, turkey, less pork/beef), lots of vegetables, less carbohydrates and less sugar. Annual physical recommended Pt reminded and I handwrote the tests she needs to schedule Assessment & Plan (01/15/2021 11:53 AM CDT): PAP- hysterectomy, not for cancer Mamm- 05/03/2020 nml DEXA- 05/03/2020 osteopenia CScope- 2006, mom with colon cancer, recommended but patient declined. Ordered Apr 2019, pt keeps putting it off Hep C Screen- neg Tdap- 04/24/19 PPSV23- 01/15/2021 PCV13- 01/10/2020 Shingrix- recommended in 1 month at pharmacy Stress test- 07/2017, nml. Flu- 04/24/19 Covid vaccination- recommended Exercise 5 days a week, 30 mins per day recommended. Eat a heart healthy diet consisting of good, healthy protein (eggs, nuts, peanut butter, chicken, fish, turkey, less pork/beef), lots of vegetables, less carbohydrates and less sugar. Annual physical recommended Assessment & Plan (01/10/2020 10:38 AM CDT): PAP- hysterectomy, not for cancer Mamm- 01-18-2020 scheduled DEXA- ordered CScope- 2006, mom with colon cancer, recommended but patient declined. Ordered Apr 2019, pt keeps putting it off Hep C Screen- neg Tdap- 04/24/19 PPSV23- recommended due to asthma, pt declined today PCV13- 01/10/2020 Shingrix- recommended in 1 month at pharmacy Stress test- 07/2017, nml. Flu- 04/24/19 Exercise 5 days a week, 30 mins per day recommended. Eat a heart healthy diet consisting of good, healthy protein (eggs, nuts, peanut butter, chicken, fish, turkey, less pork/beef), lots of vegetables, less carbohydrates and less sugar. Annual physical recommended. Assessment & Plan (04/24/2019 9:43 AM CDT): PAP- hysterectomy, not for cancer Mamm- 11-09-18 normal DEXA- lifeline screening this year, waiting on the results CScope- 2006, mom with colon cancer, recommended but patient declined. Ordered today. Hep C Screen- ordered 04/24/19 Tdap- 04/24/19 PPSV23- recommended due to asthma, pt declined today PCV13- at 64 Shingrix- recommended in 1 month Stress test- 07/2017, nml. Flu- 04/24/19 Exercise 5 days a week, 30 mins per day recommended. Eat a heart healthy diet consisting of good, healthy protein (eggs, nuts, peanut butter, chicken, fish, turkey, less pork/beef), lots of vegetables, less carbohydrates and less sugar. Annual physical recommended. Vitamin D deficiency 03/10/2019 Overview (03/10/2019): 5000 international-units vitamin D3 per day recommended with food Assessment & Plan (09/18/2022 12:33 PM CYTOLOGY LABORATORY MANAGER): Stable, continue supplementation Assessment & Plan (04/24/2019 9:44 AM CDT): 5000 international-units vitamin D3 per day recommended with food Low vitamin B12 level 03/10/2019 Assessment & Plan (02/24/2024 12:18 PM CDT): Check B12 level Assessment & Plan (09/08/2022 6:37 AM CYTOLOGY LABORATORY MANAGER): Last vitamin-D level> 2000. Currently on supplement 100 mcg daily, will repeat vitamin B12 level 3 Assessment & Plan (04/24/2019 9:44 AM CDT): Recheck labs, will likely go to 1 monthly shot. I will let the patient know. Symptoms are much improved PAC (premature atrial contraction) 09/08/2018 Family history of colon cancer in mother 018 Assessment & Plan (02/24/2024 11:43 AM CDT): She agreed to a colonoscopy today, ordered Assessment & Plan (04/24/2019 9:46 AM CDT): Colonoscopy is overdue Personal history of colonic polyps 05/16/2018 Assessment & Plan (02/24/2024 12:17 PM CDT): She agreed to a colonoscopy today, referral placed Assessment & Plan (04/24/2019 9:45 AM CDT): Schedule colonoscopy Gastroesophageal reflux disease 04/21/2018 Overview (03/09/2019): Management per medical doctor. On anti-reflux therapy. Assessment & Plan (02/24/2024 11:43 AM CDT): Chronic and controlled, she has had significant weight loss and I am unsure if she really needs this medication. Okay to use as needed Assessment & Plan (10/19/2022 1:11 PM CDT): Chronic. Stable. Continue omeprazole. Assessment & Plan (09/18/2022 12:33 PM CYTOLOGY LABORATORY MANAGER): Stable, continue omeprazole Assessment & Plan (04/24/2019 9:46 AM CDT): Continue on current meds, encouraged healthy diet and exercise. Avoid spicy, fried, greasy food Keep hydrated with clear liquids Elevate head of bed 2-3 inches Avoid or cut down on caffeines, chocolates and ETOH No late meals or heavy meals after 7pm Regular daily exercise No tight fitting clothing Smoking cessation if a smoker Weight loss if indicated will help improve symptoms. Watch for worsening symptoms- ie diarrhea, emesis, nausea, blood per rectum, hematemesis, fever, arthralgias, rash, unexplained weight loss etc... Actions and side effects of medications are discussed Take meds as directed RTC prn or if new symptoms arise Pt verbalizes understanding and all questions are answered Discussed increased risk of cdiff, dementia, pneumonia, bone demineralization leading to increase in fractures, CKD with half-way use of PPI with pt, would like to remain on medication at this time. This risk is not associated with H2 blockers such as pepcid and zantac. Essential (primary) hypertension 07/13/2017 Assessment & Plan (03/28/2024 9:59 AM CDT): She is hypotensive today and she is having some dizzy spells and lightheadedness which could be contributing to her almost falling I will stop losartan. I asked the daughter to take her blood pressures at home and let me know what they are or come back to the office in 1 month Assessment & Plan (08/26/2023 11:59 AM CYTOLOGY LABORATORY MANAGER): Chronic. Stable. Continue losartan. Assessment & Plan (10/19/2022 1:11 PM CDT): Chronic. Stable. Continue losartan. Assessment & Plan (09/18/2022 12:32 PM CYTOLOGY LABORATORY MANAGER): Blood pressure better controlled, continue reduced losartan 25 mg daily Assessment & Plan (09/15/2022 4:41 PM CYTOLOGY LABORATORY MANAGER): Blood pressure remains well controlled, continue losartan 25 mg daily Assessment & Plan (09/09/2022 7:03 PM CYTOLOGY LABORATORY MANAGER): Blood pressure well controlled, continue only losartan 25 mg daily. Assessment & Plan (09/08/2022 6:37 AM CYTOLOGY LABORATORY MANAGER): Blood pressure controlled. Continue losartan 25 mg daily. Assessment & Plan (04/24/2019 9:46 AM CDT): Controlled, continue to see Cardiology Mild intermittent asthma without complication Assessment & Plan (02/24/2024 12:18 PM CDT): Currently asymptomatic Assessment & Plan (04/24/2019 9:46 AM CDT): Continue to follow up with Pulmonary, stable Obstructive sleep apnea 02/08/2017 Assessment & Plan (02/24/2024 12:17 PM CDT): She is noncompliant with her CPAP and has no desire to resume it Therefore, We did not refer to sleep medicine Assessment & Plan (04/24/2019 9:45 AM CDT): Continue to follow with Sleep Clinic Resolved Problems Problem Noted Date Diagnosed Date Resolved Date Overweight (BMI 25.0-29.9) 01/04/2024 0 02/24/2024 Assessment & Plan (01/04/2024 3:21 PM CDT): BMI Follow-up includes: education provided. Bilateral leg pain 08/26/2023 Weakness of both lower extremities 08/26/2023 02/24/2024 Nausea 10/19/2022 02/23/2023 Assessment & Plan (10/19/2022 2:44 PM CDT): Chronic. Uncontrolled. Seems to have began shortly after starting donepezil. - discussed with son, and they will contact Neurology to see how likely the medication is in causing this side effect and if there is possibility of different regimen - if Neurology can not make changes, we will consider SE of sertraline vs starting Zofran or mirtazapine - in the meantime try Pepto and continue to eat small snacks throughout the day Transaminitis 09/30/2022 02/23/2023 PNA (pneumonia) 09/30/2022 02/23/2023 Colitis 09/30/2022 02/23/2023 Assessment & Plan (10/19/2022 2:34 PM CDT): Acute. Status post hospital admit 09/29 - 10/02/22. Completed course of Flagyl and cefdinir. Bowel movements mostly back to normal with some mild diarrhea, nausea as noted above. Hypokalemia 09/30/2022 02/23/2023 Assessment & Plan (10/19/2022 2:34 PM CDT): New issue. Acute. We will recheck BMP for further guidance on continuing potassium supplement Cystitis 09/29/2022 09/30/2022 COVID 09/21/2022 09/30/2022 Assessment & Plan (09/21/2022 12:29 PM CDT): Patient tested positive for COVID-19 on 09/21/22. Pulmonary status has remained stable off O2, pt asymptomatic. Paxlovid is available. The patient qualifies for this based on her age and comorbidity of hypertension. The patient is at higher risk for progression of severe disease due to age and comorbidities. It was explained that this medication has been shown to reduce the risk of hospitalization/progression of COVID sympotms. It is given orally with observation. It appears safe but full side effects are not known. side effects include allergic reaction, nausea are possible. The FDA has authorized the emergency use of Paxlovid for the treatment of [id number] COVID-19 in adults. The Fact Sheet for Patients, Parents and Caregivers was reviewed with the patient at the bedside. She has been informed of alternatives (no current alternatives except for supportive standard of care) to receiving authorized Paxlovid and have been informed that Paxlovid is an unapproved drug that is authorized for use under this Emergency Use Authorization. After the above discussion with the patient and family, they are agreeable to receive Paxlovid Recommend return to ED if pt has worsening SOB, clinical decline Abnormal urinalysis 09/15/2022 10/01/19 Assessment & Plan (09/18/2022 12:34 PM CYTOLOGY LABORATORY MANAGER): Patient asymptomatic, no significant growth on culture. Assessment & Plan (09/15/2022 4:40 PM CYTOLOGY LABORATORY MANAGER): Patient denies voiding complaints, no leukocytosis, fever. Confusion waxes and wanes. Follow-up urine culture when available Anxiety and depression 09/08/202202/23 Assessment & Plan (09/18/2022 12:34 PM CYTOLOGY LABORATORY MANAGER): Overall stable, continue Zoloft Assessment & Plan (09/08/2022 6:39 AM CYTOLOGY LABORATORY MANAGER): Symptoms controlled. Continue home med Zoloft 50 mg daily, donepezil. Subdural hematoma 09/02/2022 09/30/2022 Assessment & Plan (09/18/2022 12:36 PM CYTOLOGY LABORATORY MANAGER): No new neurologic changes. Follow up with Neurology as an outpatient Assessment & Plan (09/09/2022 7:01 PM CYTOLOGY LABORATORY MANAGER): Patient without acute mental status or neurologic findings. Has no headache or dizziness. Participating in therapy, we will monitor patient's progress. Remain off anticoagulation/DVT prophylaxis Assessment & Plan (09/08/2022 6:36 AM CYTOLOGY LABORATORY MANAGER): Due to fall. 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 Neurosurgery and neurology consulted. Aspirin discontinued. Repeat head CT showed stable SDH. Patient mental status progressively improved, required no sitter. Currently stable, denies any headache or dizziness. Not on any DVT prophylaxis. Continue to monitor Hypertriglyceridemia 01/15/2021 024 Overview (02/23/2023): Last Assessment & Plan: Chronic. Stable. Continue atorvastatin. Memory loss 09/17/2020 02/23/2023 Assessment & Plan (09/08/2022 6:32 AM CYTOLOGY LABORATORY MANAGER): History of memory loss since at least 2020, since after last seizue, also memory (short term) worsened after in October 2021. MMSE 29/30 in 01/2022. TSH, B12 WNL. Continue donepezil 10 mg nightly. Pt usually forgets to take her seizure medicine night dose, an admitted now due to breakthrough seizure. Will request ST for eval. Assessment & Plan (09/17/2020 9:14 AM CYTOLOGY LABORATORY MANAGER): Patient had subjective memory loss following her last seizure. Her current cognitive examination is normal. She has had laboratory assessment including TSH, electrolytes, and B12 which are all normal as well. Observation for the neurological standpoint would be appropriate at this time. Viral illness 09/12/2019 01/10/2020 Assessment & Plan (09/12/2019 6:23 PM CYTOLOGY LABORATORY MANAGER): Mucinex as directed as needed. Instructed to increase clear liquids, rest, and vitamin C in diet. Sleep with head elevated and use a cool mist vaporizer Vicks VapoRub at bedtime. Recommended follow-up with PCP if symptoms worsen, don't improve, or new symptoms develop. Myalgia 03/10/2019 09/30/2022 Overview (03/10/2019): Referral to Rheumatology given positive CRISTINA. Start B12 shots and vitamin-D. Positive CRISTINA (antinuclear antibody) 03/10/2019 01/15/2021 Overview (07/24/2019): Labs AVISE: CRISTINA 1:1280 centromere ESR 39 Xrays 04/21/19 XR B hand - mild OA XR B feet - negative XR SI joints - negative XR knees - moderate tricompartmental OA bilaterally Ultrasound 04/25/19 US R hand/wrist: mild/moderate thickening/effusion with grade 2 PD at the wrist. Moderate 3rd MCP thickening. 4th compartment effusion. ECHO 05/25/19 Interpretation Summary: There is mild concentric left ventricular hypertrophy. Ejection Fraction = 55-60%. There is mild mitral regurgitation. Anterior echo free space most likely represents fat pad, cannot rule out small pericardial effusion. Assessment & Plan (05/03/2019 11:50 AM CDT): 63yoF presents for evaluation after having been found to have a +CRISTINA in her workup of fatigue. The fatigue has since resolved after B12 injections x4. She otherwise reports intermittent joint pain, dry eyes, dry mouth, midfacial erythema, and dysphagia. No sclerodactyly, calcinosis, or Raynaud's, few telangiectasia on her chest. Our workup revealed a high titer CRISTINA of 1:1280 with a centromere pattern and ESR 39, otherwise unremarkable serologies. XR with OA B hands and knees, and hand ultrasound with mild to moderate changes in two joints. Thus she has a positive CRISTINA and sicca symptoms which is consistent with Sjogren's, however with the high titer CRISTINA in a centromere pattern there is concern for possible systemic sclerosis, will continue to observe; given this concern and her h/o SOB, recommend obtaining updated CXR, PFTs, and ECHO due to concern for pulmonary hypertension. Once again recommend that she be evaluated by GI given the solid/liquid dysphagia. Follow up in 2 months to reassess. Assessment & Plan (04/24/2019 9:44 AM CDT): Continue to follow up with Rheumatology Assessment & Plan (04/19/2019 1:03 PM CDT): 63yoF presents for evaluation after having been found to have a +CRISTINA in her workup of fatigue. The fatigue has since resolved after B12 injections x4. She other reports intermittent joint pain, dry eyes, dry mouth, midfacial erythema, and dysphagia. By exam she has tenderness at B SI joints and questionable swelling in a few joints. Interesting her chart has a dx of bilateral sacroiliitis, she does not recall ever having been told this, cannot recall whether her low back pain dates back to her 20s/30s, and does not believe that she has had any SI joint imaging. To fully evaluate will check appropriate serologies, xrays, and ultrasound with plan for follow up in 2 weeks to review results and to discuss treatment options. Globus sensation 05/13/2018 01/15/2021 Muscle, jerky movements (uncontrolled) 04/21/2018 01/15/2021 Bilateral sacroiliitis (CMS/HCC) 03/24/2018 09/30/2022 Morbid obesity due to excess calories 03/24/2018 09/30/2022 Assessment & Plan (04/24/2019 9:45 AM CDT): Discussed healthy diet and importance of regular physical activity. Other secondary pulmonary hypertension 02/08/2017 02/24/2024 Overview (10/20/2018): Echo done in December 2016 shows no clear-cut evidence of pulmonary hypertension. Assessment & Plan (10/19/2022 1:10 PM CDT): Chronic. Stable. Monitor. General weakness 02/24/2024 Immunizations Immunization Administration Dates Next Due Influenza, Quadrivalent, Spl it, Preservative Free, Intramuscular 04/24/2019 Influenza, Unspecified 04/11/2024(Deferr ed: Patient decision),04/11/2024(Deferred: Patient decision),03/12/2024(Deferred: Patient decision),06/29/2023(Deferred: Patient decision),05/13/2023(Deferred: Patient decision),05/13/2023(Deferred: Patient decision),05/13/2023(Deferred: Patient decision),04/11/2023(Deferred: Patient decision),04/11/2023(Deferred: Patient decision),05/13/2022(Deferred: Patient decision),05/13/2022(Deferred: Patient decision),04/11/2022(Deferred: Patient decision),04/11/2022(Deferred: Patient decision),04/11/2022(Deferred: Patient decision),04/11/2022(Deferred: Patient decision),04/11/2022(Deferred: Patient Refused),04/11/2021(Deferred: Patient decision),04/11/2021(Deferred: Patient decision),04/11/2021(Deferred: Patient Refused) Pneumococcal Conjugate PCV 13 01/10/2020 Pneumococcal Polysaccharide PPV23 01/15/2021 Tdap 04/24/2019 Social History Tobacco Use Types Packs/Day Years Used Date Smoking Tobacco: Former Cigarettes Smokeless Tobacco: Never Tobacco Cessation:Counseling Given: Not Answered Alcohol Use Standard Drinks/Week Comments Not Currently 0 (1 standard drink = 0.6 oz pur e alcohol) OASIS D0700: Social Isolation Answer Da te Recorded Frequency of experiencing loneliness or isolatio n Always 09/19/2024 OASIS A1250: Transportation Answer Date Recorded Lack of Transportation (Medical) No 09/19/2024 Lack of Transportation (Non-Medical) No 09/19/2024 Patient Unable or Declines to Respond No 09/19/2024 OASIS B1300: Health Literacy Answer Flo e Recorded Frequency of needing help to read materials from doctor or pharmacy Always 09/19/2024 Social Connection and Isolat ion Panel [NHANES] Answer Date Recorded In a typical week, how many times do you talk on the phone with family, friends, or neighbors? More than three times a week 10/08/2022 How often do you get togethe r with friends or relatives? More than three times a week 10/08/2022 How often do you attend chur ch or yarsani services? Never 10/08/2022 Do you belong to any clubs o r organizations such as rastafari groups, unions, fraternal or athletic groups, or school groups? No 10/08/2022 How often do you attend meet ings of the clubs or organizations you belong to? Never 10/08/2022 Are you , , di vorced, , never , or living with a partner? 10/08/2022 AUDIT-C Answer Date Recorded Q1: How often do you have a drink containing alc ohol? Monthly or less 09/06/2024 Q2: How many drinks containi ng alcohol do you have on a typical day when you are drinking? 1 or 2 09/06/2024 Q3: How often do you have si x or more drinks on one occasion? Never 09/06/2024 Overall Financial Resource Strain (CARDIA) Answe r Date Recorded How hard is it for you to pa y for the very basics like food, housing, medical care, and heating? Not hard at all 10/08/2022 PHQ-2 Answer Date Recorded PHQ-2 Total Score (If total score is 3 or more points, staff should administer the PHQ-9) 0 09/06/2024 Hunger Vital Sign Answer Date Recorded Within the past 12 months, y ou worried that your food would run out before you got the money to buy more. Never true 10/09/19 23 Within the past 12 months, t he food you bought just didn't last and you didn't have money to get more. Never true 10/08/2022 PRAPARE - Transportation Answer Date Re corded In the past 12 months, has l ack of transportation kept you from medical appointments or from getting medications? No 09/11 In the past 12 months, has l ack of transportation kept you from meetings, work, or from getting things needed for daily living? No 10/08/2022 Housing Stability Vital Sign Answer Flo e Recorded In the last 12 months, was t here a time when you were not able to pay the mortgage or rent on time? No 10/08/2022 In the last 12 months, how many places have you lived? 2 10/08/2022 In the last 12 months, was t here a time when you did not have a steady place to sleep or slept in a chcf (including now)? No 10/08/2022 PHQ-9 Answer Date Recorded PHQ-9 Total Score 8 02/24/2024 Personal Safety Answer Date Recorded Have you ever been in or are you currently in a harmful physical or emotional relationship or is someone making you feel afraid or unsafe? Denies 05/01/2024 Comments No Sex and Gender Information Value Date Recorded Sex Assigned at Not on file Legal Sex Female 10:22 PM CYTOLOGY LABORATORY MANAGER Gender Identity Not on file Sexual Orientation Not on file Last Filed Vital Signs Vital Sign Reading Time Taken Comments Blood Pressure 126/60 10/19/2024 12:36 PM CDT Pulse 58 10/19/2024 12:36 PM CDT Temperature 36.3 C (97.4 F) 10/19/2024 12:36 PM CDT Respiratory Rate 18 10/19/2024 12:36 PM CDT Oxygen Saturation 99% 10/19/2024 12:36 PM CDT Inhaled Oxygen Concentration - - Weight 56.8 kg (125 lb 3.2 oz) 09/06/2024 9:35 A M CYTOLOGY LABORATORY MANAGER Height 152.4 cm (5') 09/06/2024 9:35 AM CYTOLOGY LABORATORY MANAGER Body Mass Index 24.45 09/06/2024 9:35 AM CYTOLOGY LABORATORY MANAGER Plan of Treatment Not on file Procedures Procedure Name Priority Date/Time Associated Diagnosis Comments EEG Routine 09/06/2024 1:47 PM CYTOLOGY LABORATORY MANAGER Seizure disorder (HCC) URINE CULTURE Routine 09/06/2024 12:39 PM CYTOLOGY LABORATORY MANAGER Weakness Acute cystitis without hematuria POCT URINALYSIS DIPSTICK Routine 09/06/2024 11:01 AM CYTOLOGY LABORATORY MANAGER Weakness ECG 12-LEAD Routine 09/06/2024 9:55 AM CYTOLOGY LABORATORY MANAGER Weakness MAGNESIUM Routine 09/05/2024 2:05 PM CYTOLOGY LABORATORY MANAGER Generalized headaches Seizure disorder (HCC) Alzheimer's disease, unspecified (HCC) Essential (primary) hypertension COMPREHENSIVE METABOLIC PANEL Routine 09/05/2024 2:05 PM CYTOLOGY LABORATORY MANAGER Generalized headaches Seizure disorder (HCC) Alzheimer's disease, unspecified (HCC) Essential (primary) hypertension THYROID FUNCTION CASCADE Routine 09/05/2024 2:05 PM CYTOLOGY LABORATORY MANAGER Generalized headaches Seizure disorder (HCC) Alzheimer's disease, unspecified (HCC) Essential (primary) hypertension Screening for thyroid disorder CBC WITH AUTO DIFFERENTIAL Routine 09/05/2024 2:05 PM CYTOLOGY LABORATORY MANAGER Generalized headaches Seizure disorder (HCC) Alzheimer's disease, unspecified (HCC) Essential (primary) hypertension VITAMIN B12 Routine 09/05/2024 2:03 PM CYTOLOGY LABORATORY MANAGER Generalized headaches Seizure disorder (HCC) Alzheimer's disease, unspecified (HCC) Essential (primary) hypertension COLONOSCOPY 05/01/2024 10:38 AM CDT SCREENING MAMMOGRAM BILATERAL W JORGE LUIS Schedule Routine, Read Routine (OP Routine) 05/21/2023 1:18 PM CYTOLOGY LABORATORY MANAGER Screening mammogram, encounter for DEXA AXIAL SKELETON BONE DENSITY 1 OR MORE SITES 05/03/2020 9:13 AM CDT HEPATITIS C ANTIBODY Routine 04/24/2019 10:18 AM CDT Annual physical exam Encounter for hepatitis C screening test for low risk patient from Last 3 Months or Most Recently Relevant to Health Maintenance Results * EEG (09/06/2024 1:47 PM CYTOLOGY LABORATORY MANAGER) Anatomical Region Laterality Modality EEG Narrative 09/06/2024 12:30 PM CYTOLOGY LABORATORY MANAGER Kamari Temple MD 09/06/2024 5:32 PM Reason for exam: Seizure disorder Technical: This is a digitally recorded electroencephalogram. It was just over 20 minutes long. The international 10-20 electrode placement system is used for scalp electrode placement. Eighteen channels of scalp EEG are recorded. One channel was used for EOG. Another channel was used for ECG. The data are stored digitally and reviewed in reformatted montages for optimal display. Background: Background consists primarily of theta activity seen bilaterally. This was relatively symmetric. It was not particularly well reactive to eye opening or closure. Much of the study was obscured by artifact from patient motion and talking. Description: No focal slowing was seen. No seizure like activity was observed during this recording. Patient entered into periods of drowsiness and light sleep. Hyperventilation was not performed due to patient's clinical condition. Photic stimulation was performed without any additional abnormalities. Impression: Generalized slowing suggests diffuse cerebral dysfunction as can be seen in encephalopathy or with underlying dementia process. No focal slowing no seizure like activity was observed. Correlation with clinical findings is needed. Myriam Moraes FIBERGLASS QUALITY TECHNICIAN NEUROLOGY ORDERABLES Final Result * Urine culture Urine, clean voided (09/06/2024 12:39 PM CYTOLOGY LABORATORY MANAGER) Urine culture [employer] Comment: CULTURE, URINE, ROUTINE Micro Number: [id number] Test Status: Final Specimen Source: Not given Specimen Quality: Adequate Result: Mixed genital marietta isolated. These superficial bacteria are not indicative of a urinary tract infection. No further organism identification is warranted on this specimen. If clinically indicated, recollect clean-catch, mid-stream urine and transfer immediately to Urine Culture Transport Tube. Urine, clean voided 09/06/2024 12:39 PM CYTOLOGY LABORATORY MANAGER 09/07/2024 2:31 AM CYTOLOGY LABORATORY MANAGER Chio ZAVALA LAB MICROBIOLOGY - GENERAL ORDER EDNA Final Result [facility] [address] [place] [address] * (ABNORMAL) POCT urinalysis dipstick (09/06/2024 11:01 AM CYTOLOGY LABORATORY MANAGER) Color, Urine, POC Dark Yellow Clarity, ur, POC Cloudy(A) Clear Glucose, ur, POC Negative Negative MG/DL Bilirubin, ur, POC Negative Negative, Small, Moderate, Large Ketones, ur, POC Negative Negative Specific [place], POC 1.020 1.003 - 1.030 Blood, ur, POC Non-hemolyze d, trace(A) Negative pH, ur, POC 6.0 5.0 - 8.0 Protein, ur, POC Negative Negative Urobilinogen, urine, POC 0.2 0.2 - 1.0 mg/dL Nitrite, ur, POC Negative Negative Leukocytes, ur, POC Small(A) Negative Lot Number [id number] Urine 09/06/2024 11:0 1 AM CYTOLOGY LABORATORY MANAGER Chio ZAVALA POINT OF CARE TEST ORDERABLES Fi nal Result * ECG 12 lead (09/06/2024 9:55 AM CYTOLOGY LABORATORY MANAGER) Chio ZAVALA ECG ORDERABLES Final Result * Thyroid Function [place] (09/05/2024 2:05 PM CYTOLOGY LABORATORY MANAGER) Pathologist [facility] TSH 1.52 0.40 - 4.50 mIU/L [facility] Blood 09/05/2024 2:05 PM CYTOLOGY LABORATORY MANAGER 09/05/2024 2:05 PM CYTOLOGY LABORATORY MANAGER Narrative [facility] - 09/06/2024 11:38 AM CYTOLOGY LABORATORY MANAGER FASTING:NO FASTING: NO Chio ZAVALA LAB BLOOD ORDERABLES Final Resul t [facility] [address] [place] [address] * CBC with auto differential (09/05/2024 2:05 PM CYTOLOGY LABORATORY MANAGER) [facility] WBC 5.0 3.8 - 10.8 Thousand/u L [facility] RBC, POC 4.48 3.80 - 5.10 Million/uL [facility] Hgb 13.5 11.7 - 15.5 g/dL [facility] Hct 40.4 35.0 - 45.0 % [facility] MCV 90.2 80.0 - 100.0 fL [facility] MCH 30.1 27.0 - 33.0 pg [facility] MCHC 33.4 32.0 - 36.0 g/dL [facility] Comment: For adults, a slight decrease in the calculated MCHC value (in the range of 30 to 32 g/dL) is most likely not clinically significant; however, it should be interpreted with caution in correlation with other red cell parameters and the patient's clinical condition. Rdw 12.6 11.0 - 15.0 % [employer] Platelets 187 140 - 400 Thousand/u L [employer] MPV 10.5 7.5 - 12.5 fL [employer] Neutrophils, abs 2,745 1,500 - 7,800 cells/uL [employer] Lymphocytes, abs 1,735 850 - 3,900 cells/uL [employer] Monocyte abs 380 200 - 950 cells/uL [employer] Eosinophils, abs 90 15 - 500 cells/uL [employer] Basophils, abs 50 0 - 200 cells/uL [employer] Neutrophils 54.9 % [employer] Lymphocyte pct 34.7 % [facility] Monocytes 7.6 % [employer] Eosinophils 1.8 % [employer] Basophils 1.0 % [employer] Blood 09/05/2024 2:05 PM CYTOLOGY LABORATORY MANAGER 09/05/2024 2:05 PM CYTOLOGY LABORATORY MANAGER Narrative [facility] - 09/06/2024 11:38 AM CYTOLOGY LABORATORY MANAGER FASTING:NO FASTING: NO Chio ZAVALA LAB BLOOD ORDERABLES Final Resul t Performing Organization Address City/[facility]/ZIP Co de Phone Number [place] [address] [place] [address] * Magnesium (09/05/2024 2:05 PM CYTOLOGY LABORATORY MANAGER) Magnesium 2.1 1.5 - 2.5 mg/dL [facility] Blood 09/05/2024 2:05 PM CYTOLOGY LABORATORY MANAGER 09/05/2024 2:05 PM CYTOLOGY LABORATORY MANAGER Narrative [facility] - 09/06/2024 11:38 AM CYTOLOGY LABORATORY MANAGER FASTING:NO FASTING: NO Chio ZAVALA LAB BLOOD ORDERABLES Final Resul t Performing Organization Address City/[facility]/ZIP Co de Phone Number [facility] [address] [place] [address] * Comprehensive metabolic panel (09/05/2024 2:05 PM CYTOLOGY LABORATORY MANAGER) Glucose 89 65 - 139 mg/dL [facility] Comment: Non-fasting reference interval BUN 20 7 - 25 mg/dL [facility] Creatinine 0.65 0.50 - 1.05 mg/dL [facility] eGFR 95 > OR = 60 mL/min/1.7 3m2 [facility] BUN/creat ratio SEE NOTE: 6 - 22 (calc) [facility] Comment: Not Reported: BUN and Creatinine are within reference range. Sodium 139 135 - 146 mmol/L [facility] Omid hany Davis Potassium, pl 4.1 3.5 - 5.3 mmol/L [facility] Anne ahny [facility] Chloride 104 98 - 110 mmol/L [facility] CO2 28 20 - 32 mmol/L [facility] Calcium 9.4 8.6 - 10.4 mg/dL [facility] hayn Davis Protein, sr 7.4 6.1 - 8.1 g/dL [facility] Anne hany [facility] Albumin 4.2 3.6 - 5.1 g/dL [facility] GLOBULIN 3.2 1.9 - 3.7 g/dL (calc) Theo Anne hany Davis Alb/glob ratio 1.3 1.0 - 2.5 (calc) [facility] AnneNoman [facility] Bilirubin, total 0.6 0.2 - 1.2 mg/dL [facility] Anne hany [facility] Alk phos 88 37 - 153 U/L [facility] AST 20 10 - 35 U/L [facility] Omid hany Davis ALT (SGPT) 10 6 - 29 U/L [facility] OmidNoman Davis Blood 09/05/2024 2:05 PM CYTOLOGY LABORATORY MANAGER 09/05/2024 2:05 PM CYTOLOGY LABORATORY MANAGER Narrative [facility] - 09/06/2024 11:38 AM CYTOLOGY LABORATORY MANAGER FASTING:NO FASTING: NO us Chio ZAVALA LAB BLOOD ORDERABLES Final Resul t [facility] Center[facility] [address] [place] [address] * (ABNORMAL) Vitamin B12 (09/05/2024 2:03 PM CYTOLOGY LABORATORY MANAGER) [facility] Vitamin B12 >2000(H) 200 - 1100 pg/mL [facility] Blood 09/05/2024 2:03 PM CYTOLOGY LABORATORY MANAGER 09/05/2024 2:03 PM CYTOLOGY LABORATORY MANAGER Narrative [facility] - 09/06/2024 5:02 AM CYTOLOGY LABORATORY MANAGER FASTING:NO FASTING: NO us Chio ZAVALA LAB BLOOD ORDERABLES Final Resul t [facility] [address] [facility] [place] [address] * Colonoscopy (05/01/2024 10:38 AM CDT) Anatomical Region Laterality Modality Other Narrative Procedure Note Tal Arita MD - 05/01/2024 10:38 AM CDT [facility] Patient Name: Fausto Peña Procedure Date: 05/01/2024 10:38AM Date of : 1955 Admit Type: Outpatient Age: 68 Gender: Female Attending MD: Tal Arita M.D. Room: [facility] ENDOSCOPY ROOM 05 Note Status: Finalized Procedure: Colonoscopy Indications: Screening for colorectal malignant neoplasm Referring MD: Chio Horton PA-C Providers: Tal Arita M.D. Medicines: Monitored Anesthesia Care Complications: No immediate complications. Estimated Blood Loss: Estimated blood loss was minimal. Procedure: The benefits, risks and alternatives of theprocedure and sedation were discussed and informed consentwas obtained. All questions were answered. Please referto the signed informed consent document in the medical record. The scope was passed under direct vision.The CF-WC082N colonoscope was introduced through theanus and advanced to the terminal ileum. The colonoscopy was performed without difficulty. The patient tolerated the procedure well. The quality of thebowel preparation was evaluated using the BBPS (BostonBowel Preparation Scale) with scores of: Right Colon = 2 (minor amount of residual staining, small fragmentsof stool and/or opaque liquid, but mucosa seen well), Transverse Colon = 3 (entire mucosa seen well withno residual staining, small fragments of stool oropaque liquid) and Left Colon = 2 (minor amount ofresidual staining, small fragments of stool and/or opaque liquid, but mucosa seen well). The total BBPS score equals 7. The quality of the bowel preparation was fair. Findings: The perianal and digital rectal examinations were normal. Two semi-pedunculated polyps were found in the ascending colon. The polyps were 3 to 4 mm in size. These polyps were removed with a cold snare. Resection and retrieval were complete. Estimated blood losswas minimal. Three semi-pedunculated polyps were found in the hepatic flexure. The polyps were 4 to 5 mm in size. These polyps were removed with a cold snare. Resection and retrieval were complete. Estimated blood losswas minimal. Estimated blood loss was minimal. A 3 mm polyp was found in the transverse colon. The polyp wassessile. The polyp was removed with a cold snare. Resection and retrieval were complete. Estimated blood loss was minimal. A 3 mm polyp was found in the sigmoid colon. The polyp was sessile.The polyp was removed with a cold snare. Resection and retrieval were complete. Estimated blood loss was minimal. Non-bleeding internal hemorrhoids were found during retroflexion. The hemorrhoids were mild. Impression: - Preparation of the colon was fair. - Two 3 to 4 mm polyps in the ascending colon,removed with a cold snare. Resected and retrieved. - Three 4 to 5 mm polyps at the hepatic flexure, removed with a cold snare. Resected andretrieved. - One 3 mm polyp in the transverse colon, removedwith a cold snare. Resected and retrieved. - One 3 mm polyp in the sigmoid colon, removed witha cold snare. Resected and retrieved. - Non-bleeding internal hemorrhoids. Recommendation: - Repeat colonoscopy in 3 years for surveillance. - Resume previous diet. - Continue present medications. - Await pathology results. - Patient has a contact number available for emergencies. The signs and symptoms of potential delayed complications were discussed with thepatient. Return to normal activities tomorrow. Written discharge instructions were provided to thepatient. Tal Arita M.D. Tal Arita M.D. 05/01/2024 11:42:30 AM . Number of Addenda: 0 Note Initiated On: 05/01/2024 10:38 AM Recognized by the [employer] for promoting quality in endoscopy us Tal Arita MD ENDOSCOPY PROCEDURES Fin al Result * (ABNORMAL) Screening Mammogram Bilateral W Jorge Luis (05/21/2023 1:18 PM CYTOLOGY LABORATORY MANAGER) Anatomical Region Laterality Modality Breast Bilateral Mammography Impressions 05/21/2023 5:27 PM CYTOLOGY LABORATORY MANAGER BI-RADS ATLAS category (overall): 0 - Incomplete: Needs Additional Imaging Evaluation Recommend RIGHT diagnostic mammogram and possible sonogram. Narrative 05/21/2023 5:27 PM CYTOLOGY LABORATORY MANAGER Screening Mammogram Bilateral W Jorge Luis: 05/21/23 The study was acquired using full field digital technology and interpreted from soft copy. 2D digital mammographic views, as well as 3D digital tomosynthesis were performed in the CC and MLO projections. CLINICAL: Screening mammogram, encounter for. No relevant medical history has been documented for this patient. No known family history of breast cancer. COMPARISONS: 05/03/2020 Screening Mammogram Bilateral W Jorge Luis 11/09/2018 Screening Mammogram 2D Bilateral 09/27/2017 Screening Mammogram 2D Bilateral 07/17/2016 Breast Imaging Screening Outside Reference 07/15/2015 Breast Imaging Screening Outside Reference BREAST TISSUE: The breasts have scattered areas of fibroglandular density. FINDINGS: Asymmetry in the central mid RIGHT breast on CC with possible correlate on MLO. No suspicious mammographic finding in the LEFT breast. us Self Screening Mammogram IMG MAMMO PROCEDURES Fi nal Result * Dexa Axial Skeleton Bone Density 1 or 2 Site (05/03/2020 9:13 AM CDT) Anatomical Region Laterality Modality Body N/A Radiographic Aaliyah ging 05/03/2020 10:3 4 AM CDT Narrative 05/03/2020 10:35 AM CDT Patient Name: FAUSTO PEÑA Dr: Chio Horton PA-C, D.O.B: 1955 Exam Date: 05/03/20912 Age: 64 Sex: Female MR#: [id number] Loc: RADIOLOGY REPORT Order #[id number] Bone Density Bone Density Hip/Spine (STD) Signed EXAM DESCRIPTION: Bone Density Hip/Spine (STD) REASON FOR STUDY: 64 year old postmenopausal white female with given history of vitamin-D deficiency. A Auxiliary/Model: Hologic Horizon A (S/N [id number]) CLINICAL INFORMATION: Current height: 58 inches Maximum height: 60 inches Weight: 176 pounds Risk factors: Early surgical menopause at age 43. Seizure disorder. Asthma/emphysema. Has taken vitamin-D. Does not perform regular weight-bearing exercise. Does not regularly consume dairy products. Drinks caffeinated beverages. COMPARISON: None available. FINDINGS: AP LUMBAR SPINE L1-L4: Total BMD is 0.941 g/cm2 T-score is -1.0 LEFT HIP: Total BMD is 0.832 g/cm2 T-score is -0.9 Femoral neck BMD is 0.618 g/cm2 T-score is -2.1 Fracture risk assessment (FRAX): 10 year risk for a major osteoporotic fracture is 9.9 % 10 year risk for a hip fracture is 1.5 % The FRAX tool has not been validated in patients currently or previously treated with pharmacotherapy for osteoporosis. In such patients, clinical judgement must be exercised in interpreting FRAX scores as the fracture risk may be overestimated. IMPRESSION: Low bone mass. REFERENCE: Bone mineral density: Normal (T-score above or = -1.0) Low bone mass (T-score between -1.0 and -2.5) replaces the previously used term osteopenia Osteoporosis (T-score = or below -2.5) Medical evaluation for secondary causes of low bone mineral density may be appropriate. FRAX is a World Health Organization validated fracture risk assessment tool that calculates a person's 10 year probability of a major osteoporosis related fracture and hip fracture. According to the National Osteoporosis Foundation guidelines, postmenopausal women and men age 50 or older with low bone mass and a 10 year probability of a major osteoporosis related fracture = or greater than 20% or a 10 year probability of a hip fracture = or greater than 3% should be considered for treatment. For further information, including treatment recommendations, please refer to the 2013 ISCD Official Positions (http://www.iscd.org) and the NOF's Clinician's Guide to Prevention and Treatment of Osteoporosis (http://www.nof.org/professionals/clinical-guidelines) THIS IS AN ELECTRONICALLY VERIFIED FINAL REPORT 05/03/2020 10:35 AM - Electronically signed by Fredrick Renteria M.D. RB: JEANNIE Report ID: [id number] Reading Location: [place] [id number] REPORT ELECTRONICALLY SIGNED IN OTHER VENDOR SYSTEM Resulting Agency Comment O Procedure Note Fredrick Renteria MD - 05/03/2020 Patient Name: FAUSTO PEÑA Carmen Dr: Chio Horton PA-C, D.O.B: 1955 Exam Date: 05/03/20912 Age: 64 Sex: Female MR#: [id number] Loc: RADIOLOGY REPORT Order #[id number] Bone Density Bone Density Hip/Spine (STD) Signed EXAM DESCRIPTION: Bone Density Hip/Spine (STD) REASON FOR STUDY: 64 year old postmenopausal white female with given history of vitamin-D deficiency. A Auxiliary/Model: Hologic Horizon A (S/N [id number]) CLINICAL INFORMATION: Current height: 58 inches Maximum height: 60 inches Weight: 176 pounds Risk factors: Early surgical menopause at age 43. Seizure disorder. Asthma/emphysema. Has taken vitamin-D. Does not perform regular weight-bearing exercise. Does not regularly consume dairy products.Drinks caffeinated beverages. COMPARISON: None available. FINDINGS: AP LUMBAR SPINE L1-L4: Total BMD is 0.941 g/cm2 T-score is -1.0 LEFT HIP: Total BMD is 0.832 g/cm2 T-score is -0.9 Femoral neck BMD is 0.618 g/cm2 T-score is -2.1 Fracture risk assessment (FRAX): 10 year risk for a major osteoporotic fracture is 9.9 % 10 year risk for a hip fracture is 1.5 % The FRAX tool has not been validated in patients currently or previously treated with pharmacotherapy for osteoporosis. In such patients,clinical judgement must be exercised in interpreting FRAX scores as the fracturerisk may be overestimated. IMPRESSION: Low bone mass. REFERENCE: Bone mineral density: Normal (T-score above or = -1.0) Low bone mass (T-score between -1.0 and -2.5) replaces thepreviously used term osteopenia Osteoporosis (T-score = or below -2.5) Medical evaluation for secondary causes of low bone mineral density maybe appropriate. FRAX is a World Health Organization validated fracture risk assessmenttool that calculates a person's 10 year probability of a major osteoporosisrelated fracture and hip fracture. According to the National OsteoporosisFoundation guidelines, postmenopausal women and men age 50 or older with low bonemass and a 10 year probability of a major osteoporosis related fracture = or greater than 20% or a 10 year probability of a hip fracture = or greaterthan 3% should be considered for treatment. For further information, including treatment recommendations, pleaserefer to the 2013 ISCD Official Positions (http://www.iscd.org) and the NOF's Clinician's Guide to Prevention and Treatment of Osteoporosis (http://www.nof.org/professionals/clinical-guidelines) THIS IS AN ELECTRONICALLY VERIFIED FINAL REPORT 05/03/2020 10:35 AM - Electronically signed by Fredrick Renteria M.D. RB: JEANNIE Report ID: [id number] Reading Location: [id number] REPORT ELECTRONICALLY SIGNED IN OTHER VENDOR SYSTEM [facility] DXA PROCEDURES Final Result * Hepatitis C antibody (04/24/2019 10:18 AM CDT) Hep C Ab NONREACT NONREACTIVE [facility] Comment: Siemens CentaurXP using AYO (chemiluminescent immunoassay) technology. NONREACTIVE: Antibodies to Hepatitis C not detected. This does not exclude early acute Hepatitis C infection, possibility of exposure to Hepatitis C, antibodies below detection limit, or to lack of antibody reactivity to the antigen used in this assay. EQUIVOCAL: Antibodies to Hepatitis C may or may not be present. Sample to be confirmed by real-time PCR method. REACTIVE: Antibodies to Hepatitis C detected.Sample to be confirmed by real-time PCR method. Blood specimen (specimen) 04/24/2019 10:18 AM CDT 04/24/2019 10:13 AM CDT Narrative Resulting Agency Comment CLI [facility] MICROBIOLOGY - GENERAL ORDER EDNA Final Result [address] [phone] from Last 3 Months or Most Recently Relevant to Health Maintenance Insurance HUMANA CHOICE MEDICARE PPO HUMANA MEDICARE HMO HUMANA CHOICE MEDICARE PPO HUMANA MEDICARE HMO Advance Directives For more information, please contact: [phone] * Full Code (Latest Code Status on File) Date Activated Date Inactivated Comments 09/29/2022 10:50 PM 2022 8:12 PM * Full Code Date Activated Date Inactivated Comments 09/02/2022 5:33 PM 09/05/2022 6:10 PM Care Teams Veneer Measurer Relationship Specialty Start Date End Date Chio Horton PA [address] [place] [address] PCP - General Critical Care Med 10/20/18 Tamara Wilson MD [address] [place] [address] Consulting Physician Family Medicine 02/22/19 Tacho Starkey III, MD [address] [facility] [address] [place] [address] Consulting Physician Rheumatology 03/16/19 Myriam Moraes NP [address] [place] [address] DR S[address]HU [address] [place] [address] Nurse Practitioner Neurology 12/20/23 Myriam Moraes NP [address] [place] [address] DR S[address] [place] [address] Nurse Practitioner Neurology 03/24/24 Myriam Moraes NP [address] [place] [address] DR S[address]HU [address] [place] [address] Nurse Practitioner Neurology 03/28/24
--- OUTSIDE RECORDS SUMMARY | 2024-10-29 13:13 | XMS_ITS | Encounter Summary ---
Author Organization [facility] Address [facility] [place] [address] Care Team Providers Care Vehicle Detailer Name Role Phone Pedro Ceballos DO Primary Care Provider Encounter Details Date Type Department Care Team (Latest Contact Info) Description 05/17/[address] [facility] Maicol Hinkle MD Social History Tobacco Use Types Packs/Day Years Used Date Smoking Tobacco: Former Comments Unknown Sex and Gender Information Value Date Recorded Sex Assigned at Not on file Legal Sex Female 11:16 PM CDT Gender Identity Not on file Sexual Orientation Not on file documented as of this encounter Plan of Treatment Not on file documented as of this encounter Visit Diagnoses Not on filedocumented in this encounter Care Teams Vehicle Detailer Relationship Specialty Start Date End Date Pedro Ceballos DO PCP - General 07/17/16 documented as of this encounter
--- OUTSIDE RECORDS SUMMARY | 2024-10-29 13:13 | XMS_ITS | Encounter Summary ---
Author Organization [facility] Address [address] [place] [address] Care Team Providers Care Woodworker Name Role Phone Chio Horton Primary Care Provider [phone] Tamara Wilson MD Unavailable [phone] Laliot HAYDEN MD, Tacho Sylvester Unavailable [phone] Moraes, Myriam A. GROUP HOME MANAGER Unavailable [phone] Moraes, Myriam A. GROUP HOME MANAGER Unavailable [phone] Moraes, Myriam A. GROUP HOME MANAGER Unavailable [phone] Encounter Details Date Type Department Care Team (Late st Contact Info) Description 09/08/2024 Results Follow-Up [facility] Family Medicine [address] [place] [phone] Chio Horton PA [address] [place] [id number] Social History Tobacco Use Types Packs/Day Years Used Date Smoking Tobacco: Former Cigarettes Smokeless Tobacco: Never Alcohol Use Standard Drinks/Week Comments Not Currently 0 (1 standard drink = 0.6 oz pur e alcohol) OASIS D0700: Social Isolation Answer Da te Recorded Frequency of experiencing loneliness or isolatio n Rarely 04/27/2024 OASIS A1250: Transportation Answer Date Recorded Lack of Transportation (Medical) No 04/27/2024 Lack of Transportation (Non-Medical) No 04/27/2024 Patient Unable or Declines to Respond No 04/27/2024 OASIS B1300: Health Literacy Answer Flo e Recorded Frequency of needing help to read materials from doctor or pharmacy Always 04/27/2024 Social Connection and Isolat ion Panel [NHANES] Answer Date Recorded In a typical week, how many times do you talk on the phone with family, friends, or neighbors? More than three times a week 10/08/2022 How often do you get togethe r with friends or relatives? More than three times a week 10/08/2022 How often do you attend chur ch or zoroastrianism services? Never 10/08/2022 Do you belong to any clubs o r organizations such as restorationist groups, unions, fraternal or athletic groups, or [...] place to sleep or slept in a prison (including now)? No 10/08/2022 PHQ-9 Answer Date [...] on file Legal Sex Female 10:22 PM PASSENGER SCREENER Gender Identity Not on file Sexual Orientation Not on file documented as of this encounter Miscellaneous Notes * Result Encounter Note - Nitza Garnica LPN - 09/08/2024 4:05 PM CST Pt daughter vu ENGER SCREENER documented in this encounter Plan of Treatment Not on file documented as of this encounter Visit Diagnoses Not on filedocumented in this encounter Care Teams Woodworker Relationship Specialty Start Date End Date Chio Horton PA [address] [place] [address] PCP - General Critical Care Med 10/20/18 Tamara Wilson MD [address] [place], [place] [id number] Consulting Physician Family Medicine 02/22/19 Tacho Starkey III, MD [address] [facility] [address] [place] [address] Consulting Physician Rheumatology 03/16/19 Myriam Moraes NP [address] [place] [address] DR SIDHU [address] [place] [address] Nurse Practitioner Neurology 12/20/23 Myriam Moraes NP [address] [place] [address] DR SIDHU [address] [place] [address] Nurse Practitioner Neurology 03/24/24 Myriam Moraes NP [address] [place] [address] DR SIDHU [address] [place] [address] Nurse Practitioner Neurology 03/28/24 documented as of this encounter
--- OUTSIDE RECORDS SUMMARY | 2024-10-29 13:13 | XMS_ITS | Encounter Summary ---
Author Organization [facility] Care Team Providers Care Order Department Supervisor Name Role Phone Awa Torres MD Primary Care Provider Chio Horton Primary Care Provider [phone] Tamara Wilson MD Primary Care Provi skylar Chio Horton Unavailable Chio Horton Primary Care Provider [phone] Tamara Wilson MD Unavailable [phone] Lalito HAYDEN MD, Tacho Sylvester Unavailable [phone] Clemencia Sandy PUBLIC SPEAKING TEACHER Unavailable [phone] Kenneth Cruz PUBLIC SPEAKING TEACHER Unavailable [phone] Micki Schmitz DIVING INSTRUCTOR Unavailable [phone] MoraesMyriam OFFSHORE WIND OPERATIONS MANAGER Unavailable [phone] MoraesMyriam OFFSHORE WIND OPERATIONS MANAGER Unavailable [phone] MoraesMyriam OFFSHORE WIND OPERATIONS MANAGER Unavailable [phone] Encounter Details Date Type Department Care Team (Latest Contact Info) Description 08/03/2017 Orders Only [facility]INCON[facility] ProviderMichael MD [address] [place] [address] Social History Tobacco Use Types Packs/Day Years Used Date Smoking Tobacco: Never Assessed Comments Unknown Sex and Gender Information Value Date Recorded Sex Assigned at Not on file Legal Sex Female 10:22 PM RESCUE INSTRUCTOR Gender Identity Not on file Sexual Orientation Not on file documented as of this encounter Plan of Treatment Not on file documented as of this encounter Procedures Procedure Name Priority Date/Time Associated Diagnosis Comments CARDIOLOGY REPORT 08/03/2017 12: 00 AM RESCUE INSTRUCTOR CARDIOLOGY REPORT 08/03/2017 12: 00 AM RESCUE INSTRUCTOR documented in this encounter Results * CARDIOLOGY REPORT (08/03/2017 12:00 AM RESCUE INSTRUCTOR) Anatomical Region Laterality Modality Other Narrative 08/03/2017 12:00 AM RESCUE INSTRUCTOR Ordered by an unspecified provider. Historical Provider MD [facility] PROCE DURES Final Result * CARDIOLOGY REPORT (08/03/2017 12:00 AM RESCUE INSTRUCTOR) Anatomical Region Laterality Modality Other Narrative 08/03/2017 12:00 AM RESCUE INSTRUCTOR Ordered by an unspecified provider. Historical Provider MD [facility] PROCE DURES Final Result documented in this encounter Visit Diagnoses Not on filedocumented in this encounter Additional Health Concerns Infection Onset Date Last Indicated Resolved Time COVID: Suspected 09/29/2022 09/29/2022 09/30/2022 12:15 AM CDT COVID: Suspected 09/30/2022 09/30/2022 10/03/2022 3:05 AM CDT documented as of this encounter Care Teams Order Department Supervisor Relationship Specialty Start Date End Date Awa Torres MD [address] [facility] [address] [place] [address] PCP - General 11/20/16 10/08/18 Chio Horton PA [facility] [address] [place] [address] PCP - General 10/09/18 10/18/18 Tamara Wilson MD [address] [place] [address] PCP - General Family Medicine 10/19/18 10/19/18 Chio Horton PA [address] [place] [address] PCP - General Critical Care Med 10/20/18 Chio Horton PA [address] [place] [address] Physician In Service Education Teacher Critical Care Med 10/19/18 02/21/19 Tamara Wilson MD [address] [place] [address] Consulting Physician Family Medicine 02/22/19 Tacho Starkey III, MD [address] [facility] [address] [place] [address] Consulting Physician Rheumatology 03/16/19 Clemencia Sandy LPN [address] [facility] [address] [place] [address] Applications Specialist 09/23/22 09/30/22 Kenneth Cruz LPN [address] [facility] [address] [place] [address] ACO Care Manager Sign 10/05/22 10/13/22 Micki Schmitz, [facility] [address] [facility] [address] [place] [address] Gambling Box Person Cooler Deliverer 10/08/22 11/03/22 Myriam Moraes NP [address] [facility] [address] [place] [address] Nurse Practitioner Neurology 12/20/23 Myriam Moraes NP [address] [facility] [address] [place] [address] Nurse Practitioner Neurology 03/24/24 Myriam Moraes NP [facility] [facility] [address] [place] [address] Nurse Practitioner Neurology 03/28/24 documented as of this encounter
--- OUTSIDE RECORDS SUMMARY | 2024-10-29 13:13 | XMS_ITS | Clinical Summary ---
Author Organization [address] Address [address] [place] [phone] Care Team Providers Care Flying Ii Instructor Name Role Phone Chio Horton Primary Care Provider [phone] Tamara Wilson MD Unavailable Lalito HAYDEN MD, Tacho Sylvester Unavailable [phone] [facility] Unavailable [phone] [facility] Unavailable [facility] Unavailable Allergies Active Allergy Reactions Criticality Noted Date Comments Clonidine-Chlorthalidone Palpitations Low 9 Penicillin G Potassium Hives Medium 10/20/2018 hives Medications cholecalciferol, vitamin D3, (VITAMIN D3 ORAL)Indications :vitamin D3 deficiency Take 5,000 Units by mouth daily Active fish snp-xwunu-3-vit C-vit E 2,000-650-12 mg/2.5 gram emulsion in [...] continue Assessment & Plan (08/26/2023 12:00 PM SENIOR STRATEGY MANAGER): Ongoing issue. Discussed taking something to [...] head Assessment & Plan (08/26/2023 11:59 AM SENIOR STRATEGY MANAGER): Chronic. Stable. Continue atorvastatin. LDL is at goal Assessment & Plan (10/19/2022 1:09 PM CDT): Chronic. Stable. Continue atorvastatin. Assessment & Plan (09/18/2022 12:33 PM SENIOR STRATEGY MANAGER): Stable, continue statin Assessment & Plan (09/08/2022 6:38 AM SENIOR STRATEGY MANAGER): Continue Lipitor 10 mg daily Thyroid [...] visit Assessment & Plan (09/08/2022 6:40 AM SENIOR STRATEGY MANAGER): 1.4 cm thyroid nodule. Nonemergent thyroid [...] nausea. Assessment & Plan (09/18/2022 12:35 PM SENIOR STRATEGY MANAGER): MOCA 8/30, pt with good family support. No behaviors, cooperative with care. Assessment & Plan (09/15/2022 4:34 PM SENIOR STRATEGY MANAGER): Increased confusion reported by staff, patient currently back to baseline. MOCA 8/30 - without current behaviors. Continue Aricept. UA indicates culture Assessment & Plan (09/09/2022 7:02 PM SENIOR STRATEGY MANAGER): MOCA 8/30 indicating severe cognitive decline, patient is cooperative with care, no behaviors. player services representative discussing care needs with family after discharge [...] Assessment & Plan (10/19/2022 1:10 PM CDT): Emy. Stable, Continue Keppra. Assessment & Plan (09/18/2022 12:35 PM SENIOR STRATEGY MANAGER): Stable, continue Keppra, followed Keppra level is pending. Follow up with neurology - Dr. Douglass Assessment & Plan (09/08/2022 6:36 AM SENIOR STRATEGY MANAGER): Patient presented due to AMS and 2 seizure episodes, in the setting of med noncompliance. Keppra resumed, mental status progressively improved. Will continue Keppra 1000 mg b.i.d., recommended to repeat Keppra level on 09/18/2022. Maintain seizure precaution. Follows up with Neurology, Dr. Douglass Assessment & Plan (05/26/2021 11:16 AM SENIOR STRATEGY MANAGER): Patient continues on levetiracetam 500 mg b.i.d. at this time with no tolerability issues nor seizures reported over the past year. I have renewed her levetiracetam as prescribed. She will follow-up in neurology clinic in 1 year. Assessment & Plan (09/17/2020 9:12 AM SENIOR STRATEGY MANAGER): Patient has had a resumption of generalized seizure after approximately 40 years being seizure-free. She was hospitalized at [facility] and seen by Dr. Bradshaw in [place] thereafter. I will request medical records from [facility] as well as from Dr. Bradshaw. I have renewed her levetiracetam 500 mg b.i.d. at this time. As she has filled a 6 month seizure-free interval since her last seizure she can resume driving under [place] guidelines and this has been discussed and [...] food Assessment & Plan (09/18/2022 12:33 PM SENIOR STRATEGY MANAGER): Stable, continue supplementation Assessment & Plan (04/24/2019 9:44 AM CDT): 5000 international-units vitamin D3 per day recommended with food Low vitamin B12 level 03/10/2019 Assessment & Plan (02/24/2024 12:18 PM CDT): Check B12 level Assessment & Plan (09/08/2022 6:37 AM SENIOR STRATEGY MANAGER): Last vitamin-D level> 2000. Currently on supplement 100 mcg daily, will repeat vitamin B12 level 09/11 Assessment & Plan (04/24/2019 9:44 AM CDT): [...] omeprazole. Assessment & Plan (09/18/2022 12:33 PM SENIOR STRATEGY MANAGER): Stable, continue omeprazole Assessment & Plan [...] leading to increase in fractures, CKD with assisted use of PPI with pt, would like [...] month Assessment & Plan (08/26/2023 11:59 AM SENIOR STRATEGY MANAGER): Chronic. Stable. Continue losartan. Assessment & Plan (10/19/2022 1:11 PM CDT): Chronic. Stable. Continue losartan. Assessment & Plan (09/18/2022 12:32 PM SENIOR STRATEGY MANAGER): Blood pressure better controlled, continue reduced losartan 25 mg daily Assessment & Plan (09/15/2022 4:41 PM SENIOR STRATEGY MANAGER): Blood pressure remains well controlled, continue losartan 25 mg daily Assessment & Plan (09/09/2022 7:03 PM SENIOR STRATEGY MANAGER): Blood pressure well controlled, continue only losartan 25 mg daily. Assessment & Plan (09/08/2022 6:37 AM SENIOR STRATEGY MANAGER): Blood pressure controlled. Continue losartan 25 [...] use of Paxlovid for the treatment of [id number] COVID-19 in adults. The Fact Sheet for [...] 10/01/19 Assessment & Plan (09/18/2022 12:34 PM SENIOR STRATEGY MANAGER): Patient asymptomatic, no significant growth on culture. Assessment & Plan (09/15/2022 4:40 PM SENIOR STRATEGY MANAGER): Patient denies voiding complaints, no leukocytosis, fever. Confusion waxes and wanes. Follow-up urine culture when available Anxiety and depression 09/08/202202/23 Assessment & Plan (09/18/2022 12:34 PM SENIOR STRATEGY MANAGER): Overall stable, continue Zoloft Assessment & Plan (09/08/2022 6:39 AM SENIOR STRATEGY MANAGER): Symptoms controlled. Continue home med Zoloft 50 mg daily, donepezil. Subdural hematoma 09/02/2022 09/30/2022 Assessment & Plan (09/18/2022 12:36 PM SENIOR STRATEGY MANAGER): No new neurologic changes. Follow up with Neurology as an outpatient Assessment & Plan (09/09/2022 7:01 PM SENIOR STRATEGY MANAGER): Patient without acute mental status or neurologic findings. Has no headache or dizziness. Participating in therapy, we will monitor patient's progress. Remain off anticoagulation/DVT prophylaxis Assessment & Plan (09/08/2022 6:36 AM SENIOR STRATEGY MANAGER): Due to fall. MRI brain showed [...] 02/23/2023 Assessment & Plan (09/08/2022 6:32 AM SENIOR STRATEGY MANAGER): History of memory loss since at least 2020, since after last seizue, also memory (short term) worsened after in October 2021. MMSE 29/30 in 01/2022. TSH, B12 WNL. Continue donepezil 10 mg nightly. Pt usually forgets to take her seizure medicine night dose, an admitted now due to breakthrough seizure. Will request ST for eval. Assessment & Plan (09/17/2020 9:14 AM SENIOR STRATEGY MANAGER): Patient had subjective memory loss following her last seizure. Her current cognitive examination is normal. She has had laboratory assessment including TSH, electrolytes, and B12 which are all normal as well. Observation for the neurological standpoint would be appropriate at this time. Viral illness 09/12/2019 01/10/2020 Assessment & Plan (09/12/2019 6:23 PM SENIOR STRATEGY MANAGER): Mucinex as directed as needed. Instructed [...] CDT): Chronic. Stable. Monitor. General weakness 02/24/2024 Encounters Date Type Department Care Team Description 10/26/2024 12:30 PM CDT Home Care Visit [address] [place] [address] Heena Cazares, SLITTER HELPER PT HOME VISIT 10/24/2024 2:00 PM CDT Home Care Visit [address] [place] [address] Elizabeth Flores, PT PT REASSESSMENT 10/19/2024 12:30 PM CDT Home Care Visit [address] [place] [address] Rhonda Hightower, OT OT DISCIPLINE DISCHARGE 10/19/2024 11:00 AM CDT Home Care Visit [address] [place] [address] Heena Cazares, SLITTER HELPER PT HOME VISIT 10/19/2024 Home Care Visit [address] [place] [address] Rhonda Hightower, OT CASE COMMUNICATION 10/17/2024 10:00 AM CDT Home Care Visit [address] [place] [address] Heena Cazares, SLITTER HELPER PT HOME VISIT 10/16/2024 4:00 PM CDT Home Care Visit [address] [place] [address] Tia Singleton, SHEPPARD OT HOME VISIT 10/13/2024 11:00 AM CDT Home Care Visit [address] [place] [address] Heena Cazares, SLITTER HELPER PT HOME VISIT 10/12/2024 12:00 PM CDT Home Care Visit [address] [place] [address] Rhonda Hightower, OT OT REASSESSMENT 10/10/2024 4:00 PM CDT Home Care Visit [address] [place] [address] Tia Singleton, SHEPPARD OT HOME VISIT 10/09/2024 9:30 AM CDT Home Care Visit [address] [place] [address] Heena Cazares, SLITTER HELPER PT HOME VISIT 10/06/2024 10:00 AM CDT Home Care Visit [address] [place] [address] Elizabeth Flores, PT PT REASSESSMENT 10/04/2024 4:00 PM CDT Home Care Visit [address] [place] [address] Areli, Tia, SHEPPARD OT HOME VISIT 10/04/2024 2:30 PM CDT Home Care Visit [address] [place] [address] Elizabeth Flores, PT PT HOME VISIT 2024 3:00 PM CDT Home Care Visit [address] [place] [address] Areli, Tia, SHEPPARD OT HOME VISIT 09/29/2024 2:30 PM CDT Home Care Visit [address] [place] [address] Areli, Tia, SHEPPARD OT HOME VISIT 09/29/2024 10:00 AM CDT Home Care Visit [address] [place] [address] Heena Cazares, SLITTER HELPER PT HOME VISIT 09/27/2024 2:30 PM CDT Home Care Visit [address] [place] [address] Areli, Tia, SHEPPARD OT HOME VISIT 09/26/2024 11:00 AM CDT Home Care Visit [address] [place] [address] Heena Cazares, SLITTER HELPER PT HOME VISIT 09/22/2024 12:00 PM CDT Home Care Visit [address] [place] [address] Heena Cazares, SLITTER HELPER PT HOME VISIT 09/22/2024 Home Care Visit [address] [place] [address] Isabella Rodriguez, RN NURSE MED RECON FOR THERAPY 09/21/2024 12:30 PM CDT Home Care Visit [address] [place] [address] Rhonda Hightower, OT OT INITIAL EVALUATION 09/21/2024 Home Care Visit [address] [place] [address] Rhonda Hightower, OT CASE COMMUNICATION 09/21/2024 Home Care Visit [address] [place] [address] Isabella Rodriguez, RN NURSE MED RECON FOR THERAPY 09/20/2024 Plan of Care Documentation [address] [place] [address] 09/19/2024 10:00 AM CDT Home Care Visit [address] [place] [address] Elizabeth Flores, PT PT OASIS START OF CARE 09/17/2024 Home Care Visit [address] [place] [address] Alisa Billingsley, ORLY TELEPHONE ENCOUNTER 09/17/2024 Telephone [facility] [address] [place] [phone] Chio Horton PA After Hours 09/16/2024 Home Care Visit [address] [place] [address] Alisa Billingsley RN TELEPHONE ENCOUNTER 09/11/2024 Travel 09/08/2024 Orders Only [facility] Medical [facility] [address] [phone] Chio Horton PA Syncope, unspecified syncope type; Weakness; Sinus bradycardia; Lightheadedness 09/08/2024 Results Follow-Up [address] [phone] Chio Horton PA 09/06/2024 12:30 PM SENIOR STRATEGY MANAGER - 09/06/2024 11:59 PM SENIOR STRATEGY MANAGER Hospital Encounter [facility] [address] [place] [id number] Seizure disorder (HCC) Discharge Disposition: Discharge to home or self care 09/06/2024 9:30 AM SENIOR STRATEGY MANAGER Office Visit [address] [phone] Chio Horton PA Orthostatic hypotension (Primary Dx); Syncope, unspecified syncope type; Weakness; Sinus bradycardia; Lightheadedness; Acute cystitis without hematuria; Alzheimer's disease, unspecified (HCC); Seizure disorder (HCC) 08/28/2024 E-Visit [address] [phone] Chio Horton PA Blood pressure 08/28/2024 Telephone [facility] [address] [place] [phone] Myriam Moraes NP medical advise (Medical Advise ) 08/21/[address] [phone] Chio Horton PA Medical Question/Miscellaneo us 08/08/2024 1:00 PM SENIOR STRATEGY MANAGER Therapy [facility] Physical Therapy [address] [place] [phone] Gait disorder; Paresthesia of skin from Last 3 Months Immunizations Immunization Administration Dates Next Due Influenza, [...] 01/10/2020 Pneumococcal Polysaccharide PPV23 01/15/2021 Tdap 04/24/2019 Surgical History Surgery Date Site/Laterality Comments CHOLECYSTECTOMY 07/12/1985 - 07/11/1986 HYSTERECTOMY 07/12/1995 - 07/11/1996 DILATION AND CURETTAGE OF UTERUS COLONOSCOPY Medical History Medical History Date Comments Hypertension Tachycardia MVP (mitral valve prolapse) Abnormal echocardiogram See's Dr Valentine GERD (gastroesophageal reflux disease) Pulmonary hypertension (HCC) sec ondary, see's Dr Bañuelos Obesity Asthma TOBI (obstructive sleep apnea) Se e's Dr Ott Claudication History of epilepsy Seizures (HCC) High cholesterol Colitis 09/30/2022 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 Hypertriglyceridemia 01/15/2021 Last Assessment & Plan: Chronic. Stable. Continue atorvastatin. Cataract Family History Medical History Relation Name Comments Stroke Brother Brother Diabetes Father Farher Heart disease Father Farher Hypertension Father Farher Colon cancer Mother Mother Diabetes Mother Mother Heart attack Mother Mother Heart disease Mother Mother Stroke Mother Mother Cancer Sister 1 S Heart failure Sister 2 Cancer Sister 4 Sister Heart failure Sister 4 Sister Relation Name Status Comments Brother Brother Alive Father Farher Mother Mother Sister 1 S Sister 2 Sister 3 Alive Sister 4 Sister Alive Social History Tobacco Use Types Packs/Day Years [...] often do you attend chur ch or spiritism services? Never 10/08/2022 Do you belong to any clubs o r organizations such as catholic groups, unions, fraternal or athletic groups, or [...] place to sleep or slept in a intermediate (including now)? No 10/08/2022 PHQ-9 Answer Date [...] on file Legal Sex Female 10:22 PM SENIOR STRATEGY MANAGER Gender Identity Not on file Sexual Orientation Not on file Obstetrics History Para Term AB IAB SAB Ectopic Multiple Livin g Live Births 4 3 3 Date Outcome GA Total Labor Labor/2nd/3rd Weight Sex Type Anes PTL Lyubov A1 A5 Name Clin Term Term Term Last Filed Vital Signs Vital Sign Reading Time Taken Comments Blood Pressure 126/60 10/19/2024 12:36 PM CDT Pulse 58 10/19/2024 12:36 PM CDT Temperature 36.3 C (97.4 F) 10/19/2024 12:36 PM CDT Respiratory Rate 18 10/19/2024 12:36 PM CDT Oxygen Saturation 99% 10/19/2024 12:36 PM CDT Inhaled Oxygen Concentration - - Weight 56.8 kg (125 lb 3.2 oz) 09/06/2024 9:35 A M SENIOR STRATEGY MANAGER Height 152.4 cm (5') 09/06/2024 9:35 AM SENIOR STRATEGY MANAGER Body Mass Index 24.45 09/06/2024 9:35 AM SENIOR STRATEGY MANAGER Plan of Treatment Health Maintenance Due Date Last Done Comments Hepatitis B Screening 1972 Zoster Vaccine (1 of 2) 2004 Osteoporosis Screening-Bone Density Scan 05/03/2022 05/03/2020, 05/03/2020 Breast Cancer Screening-Mammogram 05/21/2024 05/21/2023, 05/03/2020, 05/03/2020, Additional history exists Fall Risk Assessment 02/23/2025 02/24/2024, 02/23/2023, 10/19/2022, Additional history exists Well Visit 65+ 02/23/2025 02/24/2024, 02/09, 01/15/2021, Additional history exists Influenza Vaccine (Season Ended) 2025 04/24/20 19 Depression Screening 09/06/2025 09/06/2024, 07/26/2024, 02/24/2024, Additional history exists Colon Cancer Screening-Colonoscopy 05/01/2027 05/01/2024 Colon Cancer Screening-DNA Stool 05/01/2027 05/01/20 24 DTaP/Tdap/Td Vaccine (2 - Td or Tdap) 04/24/2029 04/24/2019 Hepatitis C Screening Completed 04/24/2019 Pneumococcal vaccine 65+ Completed 01/15/2021, 07/2019 Colon Cancer Screening-CT Colonography Discontinued 05/01/2024 Colon Cancer Screening-FIT Discontinued 05/01/2024 Colon Cancer Screening-Sigmoidoscopy Discontinued 05/01/2024 Procedures Procedure Name Priority Date/Time Associated Diagnosis Comments EEG Routine 09/06/2024 1:47 PM SENIOR STRATEGY MANAGER Seizure disorder (HCC) URINE CULTURE Routine 09/06/2024 12:39 PM SENIOR STRATEGY MANAGER Weakness Acute cystitis without hematuria POCT URINALYSIS DIPSTICK Routine 09/06/2024 11:01 AM SENIOR STRATEGY MANAGER Weakness ECG 12-LEAD Routine 09/06/2024 9:55 AM SENIOR STRATEGY MANAGER Weakness MAGNESIUM Routine 09/05/2024 2:05 PM SENIOR STRATEGY MANAGER Generalized headaches Seizure disorder (HCC) Alzheimer's disease, unspecified (HCC) Essential (primary) hypertension COMPREHENSIVE METABOLIC PANEL Routine 09/05/2024 2:05 PM SENIOR STRATEGY MANAGER Generalized headaches Seizure disorder (HCC) Alzheimer's disease, unspecified (HCC) Essential (primary) hypertension THYROID FUNCTION CASCADE Routine 09/05/2024 2:05 PM SENIOR STRATEGY MANAGER Generalized headaches Seizure disorder (HCC) Alzheimer's disease, unspecified (HCC) Essential (primary) hypertension Screening for thyroid disorder CBC WITH AUTO DIFFERENTIAL Routine 09/05/2024 2:05 PM SENIOR STRATEGY MANAGER Generalized headaches Seizure disorder (HCC) Alzheimer's disease, unspecified (HCC) Essential (primary) hypertension VITAMIN B12 Routine 09/05/2024 2:03 PM SENIOR STRATEGY MANAGER Generalized headaches Seizure disorder (HCC) Alzheimer's disease, unspecified (HCC) Essential (primary) hypertension COLONOSCOPY 05/01/2024 10:38 AM CDT SCREENING MAMMOGRAM BILATERAL W JORGE LUIS Schedule Routine, Read Routine (OP Routine) 05/21/2023 1:18 PM SENIOR STRATEGY MANAGER Screening mammogram, encounter for DEXA AXIAL SKELETON BONE DENSITY 1 OR MORE SITES 05/03/2020 9:13 AM CDT HEPATITIS C ANTIBODY Routine 04/24/2019 10:18 AM CDT Annual physical exam Encounter for hepatitis C screening test for low risk patient from Last 3 Months or Most Recently Relevant to Health Maintenance Results * EEG (09/06/2024 1:47 PM SENIOR STRATEGY MANAGER) Anatomical Region Laterality Modality EEG Narrative 09/06/2024 12:30 PM SENIOR STRATEGY MANAGER Kamari Temple MD 09/06/2024 5:32 PM [...] with clinical findings is needed. Myriam Moraes NP NEUROLOGY ORDERABLES Final Result * Urine culture Urine, clean voided (09/06/2024 12:39 PM SENIOR STRATEGY MANAGER) Urine culture [facility] Comment: CULTURE, URINE, ROUTINE Micro Number: [id number] Test Status: Final Specimen Source: Not given Specimen Quality: Adequate Result: Mixed genital marietta isolated. These superficial bacteria are not indicative of a urinary tract infection. No further organism identification is warranted on this specimen. If clinically indicated, recollect clean-catch, mid-stream urine and transfer immediately to Urine Culture Transport Tube. Urine, clean voided 09/06/2024 12:39 PM SENIOR STRATEGY MANAGER 09/07/2024 2:31 AM SENIOR STRATEGY MANAGER Chio ZAVALA LAB MICROBIOLOGY - GENERAL ORDER EDNA Final Result [facility] [id number] [place] [id number] * (ABNORMAL) POCT urinalysis dipstick (09/06/2024 11:01 AM SENIOR STRATEGY MANAGER) [facility] Color, Urine, POC Dark Yellow Clarity, ur, POC Cloudy(A) Clear Glucose, ur, POC Negative Negative MG/DL Bilirubin, ur, POC Negative Negative, Small, Moderate, Large Ketones, ur, POC Negative Negative Specific [place], POC 1.020 1.003 - 1.030 Blood, ur, POC Non-hemolyze d, trace(A) Negative pH, ur, POC 6.0 5.0 - 8.0 Protein, ur, POC Negative Negative Urobilinogen, urine, POC 0.2 0.2 - 1.0 mg/dL Nitrite, ur, POC Negative Negative Leukocytes, ur, POC Small(A) Negative Lot Number [id number] Urine 09/06/2024 11:0 1 AM SENIOR STRATEGY MANAGER us Chio ZAVALA POINT OF CARE TEST ORDERABLES Fi nal Result * ECG 12 lead (09/06/2024 9:55 AM SENIOR STRATEGY MANAGER) us Chio ZAVALA ECG ORDERABLES Final Result * Thyroid Function [place] (09/05/2024 2:05 PM SENIOR STRATEGY MANAGER) [facility] TSH 1.52 0.40 - 4.50 mIU/L [facility] Blood 09/05/2024 2:0 5 PM SENIOR STRATEGY MANAGER 09/05/2024 2:05 PM SENIOR STRATEGY MANAGER Narrative [facility] - 09/06/2024 11:38 AM SENIOR STRATEGY MANAGER FASTING:NO FASTING: NO us Chio ZAVALA LAB BLOOD ORDERABLES Final Resul t [facility] [id number] [place] [id number] * CBC with auto differential (09/05/2024 2:05 PM SENIOR STRATEGY MANAGER) [facility] WBC 5.0 3.8 - 10.8 Thousand/u L [facility] RBC, POC 4.48 3.80 - 5.10 Million/uL [facility] Hgb 13.5 11.7 - 15.5 g/dL [facility] Hct 40.4 35.0 - 45.0 % [facility] MCV 90.2 80.0 - 100.0 fL [facility] MCH 30.1 27.0 - 33.0 pg [facility] MCHC 33.4 32.0 - 36.0 g/dL [facility] Comment: For adults, a slight decrease in the calculated MCHC value (in the range of 30 to 32 g/dL) is most likely not clinically significant; however, it should be interpreted with caution in correlation with other red cell parameters and the patient's clinical condition. Rdw 12.6 11.0 - 15.0 % [facility] Platelets 187 140 - 400 Thousand/u L [facility] MPV 10.5 7.5 - 12.5 fL [facility] Neutrophils, abs 2,745 1,500 - 7,800 cells/uL [facility] Lymphocytes, abs 1,735 850 - 3,900 cells/uL [facility] Monocyte abs 380 200 - 950 cells/uL [facility] Eosinophils, abs 90 15 - 500 cells/uL [facility] Basophils, abs 50 0 - 200 cells/uL [facility] Neutrophils 54.9 % [facility] Lymphocyte pct 34.7 % [facility] Monocytes 7.6 % [facility] Eosinophils 1.8 % [facility] Basophils 1.0 % [facility] Blood 09/05/2024 2:05 PM SENIOR STRATEGY MANAGER 09/05/2024 2:05 PM SENIOR STRATEGY MANAGER Narrative [facility] - 09/06/2024 11:38 AM SENIOR STRATEGY MANAGER FASTING:NO FASTING: NO us Chio ZAVALA LAB BLOOD ORDERABLES Final Resul t [facility] [address] [place] [address] * Magnesium (09/05/2024 2:05 PM SENIOR STRATEGY MANAGER) Magnesium 2.1 1.5 - 2.5 mg/dL [facility] Blood 09/05/2024 2:05 PM SENIOR STRATEGY MANAGER 09/05/2024 2:05 PM SENIOR STRATEGY MANAGER Narrative [facility] - 09/06/2024 11:38 AM SENIOR STRATEGY MANAGER FASTING:NO FASTING: NO Chio ZAVALA LAB BLOOD ORDERABLES Final Resul t [facility] [address] [place] [address] * Comprehensive metabolic panel (09/05/2024 2:05 PM SENIOR STRATEGY MANAGER) [facility] Glucose 89 65 - 139 mg/dL [facility] Comment: Non-fasting reference interval BUN 20 7 - 25 mg/dL [facility] Creatinine 0.65 0.50 - 1.05 mg/dL [facility] eGFR 95 > OR = 60 mL/min/1.7 3m2 [facility] BUN/creat ratio SEE NOTE: 6 - 22 (calc) [facility] Comment: Not Reported: BUN and Creatinine are within reference range. Sodium 139 135 - 146 mmol/L [facility] Potassium, pl 4.1 3.5 - 5.3 mmol/L [facility] [facility] Chloride 104 98 - 110 mmol/L [facility] CO2 28 20 - 32 mmol/L [facility] Calcium 9.4 8.6 - 10.4 mg/dL [facility] Protein, sr 7.4 6.1 - 8.1 g/dL [facility] Albumin 4.2 3.6 - 5.1 g/dL [facility] GLOBULIN 3.2 1.9 - 3.7 g/dL (calc) [facility] Alb/glob ratio 1.3 1.0 - 2.5 (calc) [facility] Bilirubin, total 0.6 0.2 - 1.2 mg/dL [facility] Alk phos 88 37 - 153 U/L [facility] AST 20 10 - 35 U/L [facility] ALT (SGPT) 10 6 - 29 U/L [facility] Blood 09/05/2024 2:05 PM SENIOR STRATEGY MANAGER 09/05/2024 2:05 PM SENIOR STRATEGY MANAGER Narrative [facility] - 09/06/2024 11:38 AM SENIOR STRATEGY MANAGER FASTING:NO FASTING: NO us Chio ZAVALA LAB BLOOD ORDERABLES Final Resul t [facility] [address] [place] [address] * (ABNORMAL) Vitamin B12 (09/05/2024 2:03 PM SENIOR STRATEGY MANAGER) Vitamin B12 >2000(H) 200 - 1100 pg/mL [facility] Blood 09/05/2024 2:03 PM SENIOR STRATEGY MANAGER 09/05/2024 2:03 PM SENIOR STRATEGY MANAGER Narrative [facility] - 09/06/2024 5:02 AM SENIOR STRATEGY MANAGER FASTING:NO FASTING: NO Chio ZAVALA LAB BLOOD ORDERABLES Final Resul t Performing Organization Address City/[facility]/ZIP Co de Phone Number [facility] [address] [address] * Colonoscopy (05/01/2024 10:38 AM CDT) Anatomical Region Laterality Modality Other Narrative Procedure Note Tal Arita MD - 05/01/2024 10:38 AM CDT [facility] GI ENDOSCOPY Patient Name: Fausto Peña Procedure Date: 05/01/2024 10:38AM Date of : 1955 Admit Type: Outpatient Age: 68 Gender: Female Attending MD: Tal Arita M.D. Room: [facility] ENDOSCOPY ROOM 05 Note Status: Finalized Procedure: [...] The scope was passed under direct vision.The [id number] colonoscope was introduced through theanus and advanced [...] On: 05/01/2024 10:38 AM Recognized by the [employer] for promoting quality in endoscopy us Tal Arita MD ENDOSCOPY PROCEDURES Fin al Result * (ABNORMAL) Screening Mammogram Bilateral W Jorge Luis (05/21/2023 1:18 PM SENIOR STRATEGY MANAGER) Anatomical Region Laterality Modality Breast Bilateral Mammography Impressions 05/21/2023 5:27 PM SENIOR STRATEGY MANAGER BI-RADS ATLAS category (overall): 0 - Incomplete: Needs Additional Imaging Evaluation Recommend RIGHT diagnostic mammogram and possible sonogram. Narrative 05/21/2023 5:27 PM SENIOR STRATEGY MANAGER Screening Mammogram Bilateral W Jorge Luis: [...] 10:35 AM CDT Patient Name: FAUSTO PEÑA Ordering Dr: Chio Horton PA-C DMiguelOMiguelB: 1955 Exam Date: 05/03/20912 Age: 64 Sex: Female MR#: [id number] Loc: RADIOLOGY REPORT Order #[id number] Bone Density Bone Density Hip/Spine (STD) Signed EXAM DESCRIPTION: Bone Density Hip/Spine (STD) REASON FOR STUDY: 64 year old postmenopausal white female with given history of vitamin-D deficiency. Publishing Specialist/Model: [employer] A (S/N [id number]) CLINICAL INFORMATION: Current height: 58 inches Maximum [...] Fredrick Renteria M.D. RB: JEANNIE Report ID: [id number] Reading Location: [id number] REPORT ELECTRONICALLY SIGNED IN OTHER VENDOR SYSTEM Resulting Agency Comment O Procedure Note Fredrick Renteria MD - 05/03/2020 Patient Name: FAUSTO PEÑA Dr: Chio Horton PA-C, D.O.B: 1955 Exam Date: 05/03/20912 Age: 64 Sex: Female MR#: [id number] Loc: RADIOLOGY REPORT Order #[id number] Bone Density Bone Density Hip/Spine (STD) Signed EXAM DESCRIPTION: Bone Density Hip/Spine (STD) REASON FOR STUDY: 64 year old postmenopausal white female with given history of vitamin-D deficiency. Publishing Specialist/Model: [employer] A (S/N [id number]) CLINICAL INFORMATION: Current height: 58 inches Maximum [...] Fredrick Renteria M.D. RB: JEANNIE Report ID: [id number] Reading Location: [place] [address] REPORT ELECTRONICALLY SIGNED IN OTHER VENDOR SYSTEM Chio ZAVALA IMG DXA PROCEDURES Final Result * Hepatitis C antibody (04/24/2019 10:18 AM CDT) Hep C Ab NONREACT NONREACTIVE [facility] Comment: [employer] using AYO (chemiluminescent immunoassay) technology. NONREACTIVE: Antibodies [...] MICROBIOLOGY - GENERAL ORDER EDNA Final Result [place] [address] [place] [address], [facility] [phone] from Last 3 Months or Most Recently Relevant to Health Maintenance Insurance [facility] [employer] MEDICARE PPO [employer] MEDICARE HMO [place] CHOICE MEDICARE PPO [facility] MEDICARE HMO Advance Directives For more information, please contact: [phone] * Full Code (Latest Code Status on File) Date Activated Date Inactivated Comments 09/29/2022 10:50 PM 2022 8:12 PM * Full Code Date Activated Date Inactivated Comments 09/02/2022 5:33 PM 09/05/2022 6:10 PM Care Teams Flying Ii Instructor Relationship Specialty Start Date End Date Chio Horton PA [address] [place] [address] PCP - General Critical Care Med 10/20/18 Tamara Wilson MD [address] [place] [address] Consulting Physician Family Medicine 02/22/19 Tacho Starkey III, MD [address] [place] [address] Consulting Physician Rheumatology 03/16/19 Myriam Moraes, CAMPUS RECRUITING INTERN [address] [facility] [address] [place] [address] Nurse Practitioner Neurology 12/20/23 Myriam Moraes NP [address] [facility] [address] [place] [address] Nurse Practitioner Neurology 03/24/24 Myriam Moraes NP [address] [facility] [address] [place] [address] Nurse Practitioner Neurology 03/28/24
--- OUTSIDE RECORDS SUMMARY | 2024-10-29 13:13 | XMS_ITS | Clinical Summary ---
Author Organization [facility] Address [address] [place] [address] Care Team Providers Care Range Mounter Name Role Phone Chio Horton PA-C Primary Care Provider [phone] Allergies Active Allergy Reactions Criticality Noted Date Comments Clonidine-Chlorthalidone Palpitations Low 9 Penicillins Rash Low 12/11/2022 Medications albuterol sulfate HFA 90 mcg/actuation aerosol inhaler Inhale 2 puffs by mouth every 4 hours as needed for wheezing 12/11/2021 Active aspirin 81 mg Capsule Take 1 Tablet by mouth daily. Active cholecalciferol (VITAMIN D3) 10 mcg/mL (400 unit/mL) Drops Take 5,000 Units by mouth daily. Active atorvastatin (LIPITOR) 10 mg tablet Take 10 mg by mouth daily. 09/18/2022 Active cyanocobalamin (VITAMIN B-12) 100 mcg tablet Take 2,500 mcg by mouth daily. Active levETIRAcetam (KEPPRA) 1,000 mg tablet Take 1,000 mg by mouth 2 times daily. 11/24/2022 Active donepeziL (ARICEPT) 10 mg tablet 12/11/2022 Active losartan (COZAAR) 25 mg tablet Take 25 mg by mouth daily. 10/26/2022 Active omeprazole (PriLOSEC) 20 mg Capsule, Delayed Release(E.C.) Take 20 mg by mouth daily. 09/18/2022 Active sertraline (ZOLOFT) 50 mg tablet Take 50 mg by mouth daily. 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 Stable. Continue sertraline Alzheimer's disease, unspecified 07/24/2022 Overview (12/11/2022): Last Assessment & Plan: Chronic. Stable. Continue donepezil- consult with Neurology regarding side effects of nausea. Osteopenia 01/15/2021 Hypertriglyceridemia 01/15/2021 Overview (12/11/2022): Last Assessment & Plan: Chronic. Stable. Continue atorvastatin. Memory loss 09/17/2020 Overview (12/11/2022): Last Assessment & Plan: History of memory loss since at least 2020, since after last seizue, also memory (short term) worsened after in October 2021. MMSE 29/30 in 01/2022. TSH, B12 WNL. Continue donepezil 10 mg nightly. Pt usually forgets to take her seizure medicine night dose, an admitted now due to breakthrough seizure. Will request ST for eval. Seizure disorder 09/17/2020 Overview (12/11/2022): Requests new neurologist, referral placed, continue Keppra do not miss a dose, needs clearance to drive again Last Assessment & Plan: Chroinc. Stable, Continue Keppra. Sjogren's syndrome 09/20/2019 Vitamin D deficiency 03/10/2019 Overview (12/11/2022): 5000 international-units vitamin D3 per day recommended with food Last Assessment & Plan: Stable, continue supplementation Low vitamin B12 level 03/10/2019 Overview (12/11/2022): One month 5th B12 shots weekly, followed by 1 monthly shots. Recheck labs in 1 month. Last Assessment & Plan: Last vitamin-D level> 2000. Currently on supplement 100 mcg daily, will repeat vitamin B12 level 09/11 Gastroesophageal reflux disease 04/21/2018 Overview (12/11/2022): Management per medical doctor. On anti-reflux therapy. Last Assessment & Plan: Chronic. Stable. Continue omeprazole. Essential (primary) hypertension 07/13/2017 Overview (12/11/2022): Last Assessment & Plan: Chronic. Stable. Continue losartan. Mild intermittent asthma without complication Overview (12/11/2022): Patient will be treated for asthma/reactive airway disease based on symptom profile. She reports symptoms of dyspnea. She also has history of coughing. She does report improvement after using albuterol inhaler. She is off Advair, continue p.r.n. albuter Last Assessment & Plan: Continue to follow up with Pulmonary, stable Obstructive sleep apnea 02/08/2017 Overview (12/11/2022): Sleep study was done several years ago. Question of compliance with CPAP therapy, has difficulty wearing it. Currently following with sleep clinic. Last Assessment & Plan: Continue to follow with Sleep Clinic Social History Tobacco Use Types Packs/Day Years Used Date Smoking Tobacco: Never Assessed Comments Unknown Sex and Gender Information Value Date Recorded Sex Assigned at Not on file Legal Sex Female 4:14 PM CDT Gender Identity Not on file Sexual Orientation Not on file Last Filed Vital Signs Vital Sign Reading Time Taken Comments Blood Pressure 100/58 12/11/2022 5:04 PM CDT Pulse 99 12/11/2022 5:04 PM CDT Temperature 36.7 C (98.1 F) 12/11/2022 5:04 PM CDT Respiratory Rate 16 12/11/2022 5:04 PM CDT Oxygen Saturation 98% 12/11/2022 5:04 PM CDT Inhaled Oxygen Concentration - - Weight 72.6 kg (160 lb) 12/11/2022 5:04 PM CDT Height - - Body Mass Index - - Plan of Treatment Health Maintenance Due Date Last Done Comments COLORECTAL SCREENING 10/03/1999 Colorectal Cancer Screening 10/03/1999 FIT-DNA Q 3 years 10/03/1999 FIT/FOBT Q 1 year 10/03/1999 Flex Sig/CT Colonography Q 5 years 10/03/1999 ZOSTER VACCINE (1 of 2) 2004 BREAST CANCER SCREENING 05/03/2021 05/03/20 20, 11/09/2018, 09/22/2017, Additional history exists INFLUENZA VACCINE (#1) 2024 04/24/2019 OSTEOPOROSIS SCREENING 05/03/2025 05/03/2020 DTAP/TDAP/TD VACCINES (2 - T d or Tdap) 04/24/2029 04/24/2019 RSV VACCINE (60+ or ) (1 - 1-dose 75+ series) 2029 PNEUMOCOCCAL VACCINE 50+ YEARS Completed 01/15/2021 , 01/10/2020 Insurance HUMAN Care Teams Range Mounter Relationship Specialty Start Date End Date Chio Horton PA-C [address] [place] [address] PCP - General 12/11/22
--- OUTSIDE RECORDS SUMMARY | 2024-10-29 13:13 | XMS_ITS | Clinical Summary ---
Author Organization [facility] Address [facility] [place] [address] Care Team Providers Care Hand Rigger Name Role Phone PerezAngeles moyer Oneil CASTRO Primary Care Provider [phone] Social History Tobacco Use Types Packs/Day Years Used Date Smoking Tobacco: Former Comments Unknown Sex and Gender Information Value Date Recorded Sex Assigned at Not on file Legal Sex Female 11:16 PM CDT Gender Identity Not on file Sexual Orientation Not on file Last Filed Vital Signs Vital Sign Reading Time Taken Comments Blood Pressure 142/62 08/23/2015 1:16 PM EXAMINATION GRADER Pulse 101 08/23/2015 1:16 PM EXAMINATION GRADER Temperature - - Respiratory Rate - - Oxygen Saturation - - Inhaled Oxygen Concentration - - Weight 90.3 kg (199 lb) 08/23/2015 1:16 PM EXAMINATION GRADER Height 137.2 cm (4' 6 ) 06/06/2014 8:29 AM EXAMINATION GRADER Body Mass Index 47.98 06/06/2014 8:29 AM EXAMINATION GRADER Plan of Treatment Health Maintenance Due Date Last Done Comments Colorectal Cancer Screening Colonoscopy (10 Years) 1955 Hepatitis C 1972 DTaP, Tdap and Td Vaccines ( 1 - Tdap) 1973 Pneumococcal Vaccine: 50+ Years (1 of 1 - PCV) 2004 Zoster Vaccines (1 of 2) 2004 Mammogram Screening 07/17/2018 07/17/2016, 07/15/2015, 04/07/2014 Dexa Scan (General) 10/03/2019 COVID-19 Vaccine ( - 2023-2 5 season) 2024 RSV Immunization or 60+ Years (1 - 1-dose 75+ series) 2029 Meningococcal B Vaccine Aged Out No l onger eligible based on patient's age to complete this topic Meningococcal Vaccine Aged Out No christi amanda eligible based on patient's age to complete this topic RSV Immunizations Under 20 Months Aged Out No longer eligible b ased on patient's age to complete this topic Procedures Procedure Name Priority Date/Time Associated Diagnosis Comments MG SCREENING W AYALA ELVIA DIGI Routine 07/17/2016 10:51 AM EXAMINATION GRADER from Last 3 Months or Most Recently Relevant to Health Maintenance Results * MG SCREENING W AYALA ELVIA DIGI (07/17/2016 10:51 AM EXAMINATION GRADER) Anatomical Region Laterality Modality Breast Bilateral Mammography 07/17/2016 10:5 1 AM EXAMINATION GRADER 07/17/2016 10:51 AM EXAMINATION GRADER Narrative 07/20/2016 5:05 AM EXAMINATION GRADER HUTCHINSONELI WIGGINS ADMIT/SERVICE DATE: 07/17/16 ACCT: [id number] DISCHARGE DATE: : 1955 SEX: F ORD SITE: [facility] PT TYPE: REG CLI ORDERING MD: ANGELES PEREZ DO STUDY DATE REPORT # ORDER # EXT ORDER ID 07/17/16 [id number] PROC CODE: [id number] PROCEDURE DESCRIPTION: MG SCREEN DIG KAREEM W AYALA BI IMPRESSION: STABLE MAMMOGRAPHIC APPEARANCE WITH NO NEW FINDINGS TO SUGGEST MALIGNANCY. ASSESSMENT: ACR BI-RADS CATEGORY 2 - BENIGN. RECOMMENDATION: 1: ROUTINE SCREENING MAMMOGRAM BILATERAL IN 1 YEAR COMMENTS: EXAMINATION: DIGITAL BILATERAL SCREENING MAMMOGRAM WITH 3-D TOMOSYNTHESIS CLINICAL HISTORY: NO PERSONAL OR FAMILY HISTORY OF BREAST CANCER. NO PRIOR BREAST PROCEDURES. NO CURRENT COMPLAINTS. 10 POUND WEIGHT LOSS SINCE PRIOR MAMMOGRAM. COMPARISON: MAMMOGRAMS FROM 07/15/2015 04/07/2014 08/06/2010 07/16/2009 06/28/2008 TECHNIQUE: DIGITAL SCREENING MAMMOGRAPHY OF BOTH BREASTS WAS PERFORMED IN ADDITION TO 3-D TOMOSYNTHESIS TECHNIQUE. THIS STUDY WAS READ WITH THE ASSISTANCE OF A COMPUTER-AIDED DETECTION SYSTEM. TISSUE DENSITY: THE BREAST TISSUE CONTAINS SCATTERED FIBROGLANDULAR DENSITIES. FINDINGS: BENIGN AXILLARY LYMPH NODES. BENIGN PUNCTATE CALCIFICATIONS BILATERALLY. OVERALL PARENCHYMAL PATTERN STABLE FROM PRIOR STUDIES. THERE IS NO NEW AREA OF FOCAL ASYMMETRY, DOMINANT MASS LESION, AREA OF SKIN THICKENING, OR CLUSTER OF SUSPICIOUS CALCIFICATIONS IN EITHER BREAST TO SUGGEST MALIGNANCY. ELECTRONICALLY SIGNED BY: BRINDA MARKS07/17/2016 10:54 AM Procedure Note Maicol Hinkle, - 05/05/2018 ELI HUTCHINSON ADMIT/SERVICE DATE:07/17/16 ACCT: [id number] DISCHARGE DATE: : 1955 SEX: F [facility] PT TYPE: REG CLI ORDERING MD:ANGELES PEREZ DO STUDY DATE REPORT # ORDER # [id number] ORDER ID 07/17/16 [id number] PROC CODE: [id number] PROCEDURE DESCRIPTION: MG SCREEN DIG KAREEM W AYALA BI IMPRESSION: STABLE MAMMOGRAPHIC APPEARANCE WITH NO NEW FINDINGS TO SUGGEST MALIGNANCY. ASSESSMENT: ACR BI-RADS CATEGORY 2 - BENIGN. RECOMMENDATION: 1: ROUTINE SCREENING MAMMOGRAM BILATERAL IN 1 YEAR COMMENTS: EXAMINATION: DIGITAL BILATERAL SCREENING MAMMOGRAM WITH 3-D TOMOSYNTHESIS CLINICAL HISTORY: NO PERSONAL OR FAMILY HISTORY OF BREAST CANCER. NO PRIOR BREAST PROCEDURES. NO CURRENT COMPLAINTS. 10 POUND WEIGHT LOSS SINCE PRIOR MAMMOGRAM. COMPARISON: MAMMOGRAMS FROM 07/15/2015 04/07/2014 08/06/2010 07/16/2009 06/28/2008 TECHNIQUE: DIGITAL SCREENING MAMMOGRAPHY OF BOTH BREASTS WAS PERFORMED IN ADDITION TO 3-D TOMOSYNTHESIS TECHNIQUE. THIS STUDY WAS READ WITH THE ASSISTANCE OF A COMPUTER-AIDED DETECTION SYSTEM. TISSUE DENSITY: THE BREAST TISSUE CONTAINS SCATTERED FIBROGLANDULAR DENSITIES. FINDINGS: BENIGN AXILLARY LYMPH NODES. BENIGN PUNCTATE CALCIFICATIONS BILATERALLY. OVERALL PARENCHYMAL PATTERN STABLE FROM PRIOR STUDIES. THERE IS NO NEW AREA OF FOCAL ASYMMETRY, DOMINANT MASS LESION, AREA OF SKIN THICKENING, OR CLUSTER OF SUSPICIOUS CALCIFICATIONS IN EITHER BREAST TO SUGGEST MALIGNANCY. ELECTRONICALLY SIGNED BY: BRINDA MARKS07/17/2016 10:54 AM Angeles Perez DO MAMMO Final Result from Last 3 Months or Most Recently Relevant to Health Maintenance Care Teams Hand Rigger Relationship Specialty Start Date End Date Angeles Perez DO PCP - General 07/17/16
--- OUTSIDE RECORDS SUMMARY | 2024-10-29 13:13 | XMS_ITS | Encounter Summary ---
Author Organization [facility] Care Team Providers Care Press Shop Supervisor Name Role Phone Awa Torres MD Primary Care Provider Chio Horton Primary Care Provider [phone] Tamara Wilson MD Primary Care Provi skylar Chio Horton Unavailable Chio Horton Primary Care Provider [phone] Tamara Wilson MD Unavailable [phone] Lalito HAYDEN MD, Tacho Sylvester Unavailable [phone] Clemencia Sandy VEST TAILOR Unavailable [phone] Kenneth Cruz VEST TAILOR Unavailable [phone] Micki Schmitz HEEL WASHER STRINGING MACHINE OPERATOR Unavailable [phone] MoraesMyriam FUSELAGE FRAMER Unavailable [phone] MoraesMyriam FUSELAGE FRAMER Unavailable [phone] MoraesMyriam FUSELAGE FRAMER Unavailable [phone] Encounter Details Date Type Department Care Team (Latest Contact Info) Description 07/19/2017 Orders Only [facility] CLINCONV Provider, Historical, MD [address] [place] [id number] Social History Tobacco Use Types Packs/Day Years Used Date Smoking Tobacco: Never Assessed Comments Unknown Sex and Gender Information Value Date Recorded Sex Assigned at Not on file Legal Sex Female 10:22 PM CLIENT CARE COORDINATOR Gender Identity Not on file Sexual Orientation Not on file documented as of this encounter Plan of Treatment Not on file documented as of this encounter Procedures Procedure Name Priority Date/Time Associated Diagnosis Comments PROCEDURE - RESULT 07/19/2017 12 :00 AM CLIENT CARE COORDINATOR documented in this encounter Results * PROCEDURE - RESULT (07/19/2017 12:00 AM CLIENT CARE COORDINATOR) Narrative 07/19/2017 12:00 AM CLIENT CARE COORDINATOR Ordered by an unspecified provider. Historical Provider Final Res ult documented in this encounter Visit Diagnoses Not on filedocumented in this encounter Additional Health Concerns Infection Onset Date Last Indicated Resolved Time COVID: Suspected 09/29/2022 09/29/2022 09/30/2022 12:15 AM CDT COVID: Suspected 09/30/2022 09/30/2022 10/03/2022 3:05 AM CDT documented as of this encounter Care Teams Press Shop Supervisor Relationship Specialty Start Date End Date Awa Torres MD [address] [facility] [address] [place] [address] PCP - General 11/20/16 10/08/18 Chio Horton PA [address] [place] [address] PCP - General 10/09/18 10/18/18 Tamara Wilson MD [address] [place] [address] PCP - General Family Medicine 10/19/18 10/19/18 Chio Horton PA [address] [place] [address] PCP - General Critical Care Med 10/20/18 Chio Horton PA [address] [place] [address] Physician Foam Caster Critical Care Med 10/19/18 02/21/19 Tamara Wilson MD [address] [place] [address] Consulting Physician Family Medicine 02/22/19 Tacho Starkey III, MD [address] [facility] [address] [place] [address] Consulting Physician Rheumatology 03/16/19 Clemencia Sandy LPN [address] [place] [address] Teleprinter 09/23/22 09/30/22 Kenneth Cruz VEST TAILOR [address] [place] [address] ACO Care Drop Board Worker 10/05/22 10/13/22 Micki Schmitz, [facility] [address] [place] [address] Instrumentation Supervisor Truss Builder 10/08/22 11/03/22 Myriam Moraes NP [address] [place] [address] Nurse Practitioner Neurology 12/20/23 Myriam Moraes NP [address] [place] [address] Nurse Practitioner Neurology 03/24/24 Myriam Moraes, PJ [address] [facility] [address] [place] [address] Nurse Practitioner Neurology 03/28/24 documented as of this encounter
--- OUTSIDE RECORDS SUMMARY | 2024-10-29 13:13 | XMS_ITS | Encounter Summary ---
Author Organization [facility] Facility Care Team Providers Care Handle Lathe Operator Name Role Phone Awa Torres MD Primary Care Provider Chio Horton Primary Care Provider [phone] Tamara Wilson MD Primary Care Provi skylar Chio Horton Unavailable Chio Horton Primary Care Provider [phone] Tamara Wilson MD Unavailable [phone] Lalito HAYDEN MD, Tacho Sylvester Unavailable [phone] Clemencia Sandy TERMINAL SUPERINTENDENT Unavailable [phone] Kenneth Cruz TERMINAL SUPERINTENDENT Unavailable [phone] Micki Schmitz BUGGY LOADER Unavailable [phone] MoraesMyriam TITLE I PARAPROFESSIONAL Unavailable [phone] MoraesMyriam TITLE I PARAPROFESSIONAL Unavailable [phone] MoraesMyriam TITLE I PARAPROFESSIONAL Unavailable [phone] Encounter Details Date Type Department Care Team (Latest Contact Info) Description 03/22/2017 Orders Only [facility] Provider, Historical, MD [address] [place] [id number] Social History Tobacco Use Types Packs/Day Years Used Date Smoking Tobacco: Never Assessed Comments Unknown Sex and Gender Information Value Date Recorded Sex Assigned at Not on file Legal Sex Female 10:22 PM CARTOGRAPHIC ENGINEER Gender Identity Not on file Sexual Orientation Not on file documented as of this encounter Plan of Treatment Not on file documented as of this encounter Procedures Procedure Name Priority Date/Time Associated Diagnosis Comments SCAN - LABS 03/22/2017 12:00 AM CDT documented in this encounter Results * SCAN - LABS (03/22/2017 12:00 AM CDT) Narrative 03/22/2017 12:00 AM CDT Ordered by an unspecified provider. Historical Provider Final Res ult documented in this encounter Visit Diagnoses Not on filedocumented in this encounter Additional Health Concerns Infection Onset Date Last Indicated Resolved Time COVID: Suspected 09/29/2022 09/29/2022 09/30/2022 12:15 AM CDT COVID: Suspected 09/30/2022 09/30/2022 10/03/2022 3:05 AM CDT documented as of this encounter Care Teams Handle Lathe Operator Relationship Specialty Start Date End Date Awa Torres MD [address] [facility] [address] [place] [address] PCP - General 11/20/16 10/08/18 Chio Horton PA [address] [place] [address] PCP - General 10/09/18 10/18/18 Tamara Wilson MD [address] [place] [address] PCP - General Family Medicine 10/19/18 10/19/18 Chio Horton PA [address] [place] [address] PCP - General Critical Care Med 10/20/18 Chio Horton PA [address] [place] [address] Physician Full Stack Software Engineer Critical Care Med 10/19/18 02/21/19 Tamara Wilson MD [address] [place] [address] Consulting Physician Family Medicine 02/22/19 Tacho Starkey III, MD [address] [facility] [address] [place] [address] Consulting Physician Rheumatology 03/16/19 Clemencia Sandy LPN [address] [facility] [address] [place] [address] Traffic And Transport Planner 09/23/22 09/30/22 Kenneth Cruz LPN [address] [facility] [address] [place] [address] ACO Care Clinical Nursing Professor 10/05/22 10/13/22 Micki Schmitz, [facility] [address] [address] [address] [place] [address] Chief Contract Officer Gasoline Locomotive Crane Operator 10/08/22 11/03/22 Myriam Moraes NP [address] [facility] [address] [place] [address] Nurse Practitioner Neurology 12/20/23 Myriam Moraes NP [address] [facility] [address] [place] [address] Nurse Practitioner Neurology 03/24/24 Myriam Moraes NP [address] [facility] [address] [place] [id number] Nurse Practitioner Neurology 03/28/24 documented as of this encounter
[2024-10-29] MEDS: levETIRAcetam 1500MG/NACL100ML 1,500 MG/100 ML BAG 400 MG IVPB (13:22)
[2024-10-29] MEDS: LORazepam INJ (*CRX) 2 MG/ML VIAL IV PUSH (13:22)
[2024-10-29 13:27] LABS: Basophils Absolute Auto 0.1 K/mm3 (0.0-0.1); Basophils Percent Auto 0.9 % (0.2-1.2); Eosinophils Absolute Auto 0.1 K/mm3 (0-0.3); Eosinophils Percent Auto 1.5 % (0-4.4); Hematocrit 40.6 % (37.0-47.0); Hemoglobin 13.4 g/dL (12.0-15.0); Immature Granulocyte Absolute 0.01 K/mm3 (0.00-0.031); Immature Granulocyte Percent A 0.2 % (0-0.5); Lymphocytes Absolute Auto 1.83 K/mm3 (0.9-3.2); Lymphocytes Percent Auto 33.8 % (18.3-44.2); Mean Corpuscular Hemoglobin 29.5 pg (26-34); Mean Corpuscular Volume 89.4 fl (80-100); Mean Platelet Volume 9.3 fl (7.4-10.4); Monocytes Absolute Auto 0.4 K/mm3 (0.1-0.6); Monocytes Percent Auto 6.5 % (2.6-8.5); Neutrophils Absolute Auto 3.1 K/mm3 (1.3-6.7); Neutrophils Percent Auto 57.1 % (45.5-73.1); Platelet Count Result 167 k/mm3 (150-375); Red Blood Count 4.54 M/mm3 (4.2-5.4); Red Cell Distribution Width 12.3 % (11.5-14.5); White Blood Count 5.4 K/mm3 (4.5-10.0)
[2024-10-29 13:36] LABS: Anion Gap 7 mmol/L (4-12); Blood Urea Nitrogen 15 mg/dL (7-17); Carbon Dioxide 30 mmol/L (22-30); Chloride 104 mmol/L (98-107); Estimated CRCL calculation 46 ml/min; Estimated Glomerular Filt Rate > 60; Glucose 110 mg/dL (65-110); Sodium 141 mmol/L (137-145)
[2024-10-29 13:37] LABS: Lactic Acid Reflex 1.8 mmol/L (0.7-2.0)
--- NOTE | 2024-10-29 13:43 | ED.SEIZURE ---
HPI - Seizure General Chief Complaint: Seizure Stated Complaint: Seizures Time Seen by Provider: 10/29/24 13:07 History of Present Illness HPI Narrative: Patient presents here due to concern for seizure-like activity at the long term, she will have spasms/twitching every few seconds, which were increasing in frequency, in the past this is diagnosis for focal seizures so when she came in on advice of her neurologist. She otherwise denies any complaints Seizure History: Yes Related Data Home Medications ?Medication ?Instructions ?Recorded ?Confirmed ?Last Taken ?Type cyanocobalamin (vitamin B-12) 1,000 mcg IM MONTHLY 01/26/20 12/14/23 07/12/19 History 1,000 mcg/mL injection solution losartan 50 mg tablet 50 mg PO DAILY 01/26/20 12/14/23 Unknown History omeprazole 40 mg capsule,delayed 20 mg PO DAILY 01/26/20 12/14/23 Unknown History release aspirin 81 mg chewable tablet 81 mg PO DAILY 12/14/23 12/14/23 Unknown History donepezil 10 mg tablet 10 mg PO HS 12/14/23 12/14/23 Unknown History sertraline 50 mg tablet 50 mg PO DAILY 12/14/23 12/14/23 Unknown History Allergies Allergy/AdvReac Type Severity Reaction Status Date / Time clonidine AdvReac Intermediate Palpitation Verified 08/06/24 15:53 s Penicillins AdvReac Mild Hives Verified 08/06/24 15:53 Review of Systems Review of Systems: All systems reviewed & are unremarkable except as noted in HPI and below PMFSH Past Medical History Medical History Gastroesophageal reflux disease Hypertension Memory loss Progressive short-term memory loss within the last 2 years. No official dementia diagnosis. Obstructive sleep apnea Noncompliant with CPAP Prediabetes Pulmonary hypertension Seizure Surgical History Surgical History History of cholecystectomy History of hysterectomy Family History Family History Mother Family history of cardiovascular disease, Onset Age: 87 Diabetes mellitus, Onset Age: 87 Cerebrovascular accident, Onset Age: 87 Colon cancer Father Family history of cardiovascular disease, Onset Age: 83 Diabetes mellitus Son No problems noted. Sibling Breast cancer Sibling Heart attack Social History Social History (Updated 10/14/21 @ 20:47 by Cintia Lugo PA-C) Social History: The patient lives in [place] with her . They have 3 children, 2 daughters and 1 son. She smoked remotely as a young woman. No alcohol or illicit substance use. Her is currently in the hospital and is quite ill and thus her current surrogate decision makers are 3 children, Wander Hettinger, Tiffanie Hettinger, and Gudelia Bagley. Code status: Full code. Living arrangements: with family Occupation/Education: unemployed Spiritual care concerns: Yes (Jainism) Exam Narrative: EXAMINATION OF ORGAN SYSTEMS/BODY AREAS: Constitutional: Vital signs per nursing GENERAL:[No acute distress, non-toxic appearing.] HEAD: Normal with no signs of head trauma. EYES: EOMI, conjunctiva normal ENT: Hearing grossly intact LUNGS: Nonlabored breathing. HEART: [Regular rate and rhythm] ABD: [Soft], [nontender to palpation] EXT: Normal range of motion SKIN: [No rashes or lesions.] NEURO: [Alert. No gross focal sensory or strength deficits.] When she answers questions, she will occasionally jolt all over. PSYCH: Normal affect Course Vital Signs Vital signs: Vital Signs Temperature 98.4 F 10/29/24 13:05 Pulse Rate 65 10/29/24 13:05 Respiratory Rate 20 10/29/24 13:05 Blood Pressure 131/62 10/29/24 13:05 Pulse Oximetry 100 10/29/24 13:05 Oxygen Delivery Room Air 10/29/24 13:05 Temperature 98.4 F 10/29/24 13:05 Pulse Rate 65 10/29/24 13:05 Respiratory Rate 20 10/29/24 13:05 Blood Pressure 131/62 10/29/24 13:05 Pulse Oximetry 100 10/29/24 13:05 Oxygen Delivery Room Air 10/29/24 13:05 MDM - Seizure MDM Narrative Medical decision making narrative: Patient presents potential seizure-like activity, she is well-appearing here, alert and answering questions and following commands, but occasionally will jolt/spasm all over. Labs within acceptable limits. She is given dose of Ativan and loaded with Keppra. On re-evaluation, she is now no longer having these spasms. Discussed with daughter, she is comfortable with patient going home. I did speak with Neurology on-call Dr Bradshaw who recommends going up on his Keppra dose, this is prescribed, patient will follow-up with her neurologist tomorrow. Return precautions discussed Lab Data 10/29/24 13:21 10/29/24 13:21 Labs: Lab Results 10/29/24 10/29/24 Range/Units 13:21 13:22 WBC 5.4 (4.5-10.0) K/mm3 RBC 4.54 (4.2-5.4) M/mm3 Hgb 13.4 (12.0-15.0) g/dL Hct 40.6 (37.0-47.0) % MCV 89.4 (80-100) fl MCH 29.5 (26-34) pg MCHC 33.0 (32-36) g/dl RDW 12.3 (11.5-14.5) % Plt Count 167 (150-375) k/mm3 MPV 9.3 (7.4-10.4) fl Immature Gran % (Auto) 0.2 (0-0.5) % Neut % (Auto) 57.1 (45.5-73.1) % Lymph % (Auto) 33.8 (18.3-44.2) % [place] % (Auto) 6.5 (2.6-8.5) % Eos % (Auto) 1.5 (0-4.4) % Baso % (Auto) 0.9 (0.2-1.2) % Lymph # (Auto) 1.83 (0.9-3.2) K/mm3 [place] # (Auto) 0.4 (0.1-0.6) K/mm3 Eos # (Auto) 0.1 (0-0.3) K/mm3 Baso # (Auto) 0.1 (0.0-0.1) K/mm3 Abs Immat Gran (auto) 0.01 (0.00-0.031) K/mm3 Absolute Neuts (auto) 3.1 (1.3-6.7) K/mm3 Absolute Nucleated RBC 0.000 (0.0-0.012) K/mm3 Nucleated RBC % 0.0 (0.0-0.2) % Sodium 141 (137-145) mmol/L Potassium 4.0 (3.4-5.0) mmol/L Chloride 104 (98-107) mmol/L Carbon Dioxide 30 (22-30) mmol/L Anion Gap 7 (4-12) mmol/L BUN 15 (7-17) mg/dL Creatinine 0.75 (0.7-1.0) mg/dL Estim Creat Clear Calc 46 ml/min Estimated GFR > 60 (59 - ) Glucose 110 (65-110) mg/dL Lactic Acid 1.8 (0.7-2.0) mmol/L Calcium 9.0 (8.4-10.2) mg/dL Discharge Plan Discharge Clinical Impression: Seizure-like activity Patient Disposition: Home Condition: Stable Instructions: Epilepsy (ED) Additional Instructions: Please follow-up with her neurologist. Please increase your Keppra dosage to 1250 twice a day. You can always return for any further issues. Patient Language: Faroese Prescriptions: New levetiracetam [Keppra] 250 mg tablet 250 mg PO BID 30 Days Qty: 60 0RF No Action benzonatate 200 mg capsule 200 mg PO TID PRN (Reason: cough) Qty: 20 0RF donepezil 10 mg tablet 10 mg PO HS sertraline 50 mg tablet 50 mg PO DAILY aspirin [Baby Aspirin] 81 mg Tablet,Chewable 81 mg PO DAILY levetiracetam 1,000 mg tablet 1,000 mg PO Q12H Qty: 60 8RF losartan 50 mg tablet 50 mg PO DAILY omeprazole 40 mg capsule,delayed release(DR/EC) 20 mg PO DAILY cyanocobalamin (vitamin B-12) 1,000 mcg/mL solution 1,000 mcg IM MONTHLY Follow-up/Referrals: Clifford,LUCAS Barroso [Primary Care Provider] -
[2024-10-29] MEDS: LACTATED RINGERS 1,000 ML 999 ML IV CONT (15:57)
--- NOTE | 2024-10-29 21:04 | PC.NURSE ---
Rn spoke with pt daughter and gave her an update on pt. Pt daughter verbally states her friend will be coming to picking crew supervisor pt at 22:00. Pt is awake and holding conversation with RN and LUCAS Guzman verbally states she is okay to go home once her ride gets here. Pt is A&Ox2 at this time.
--- NOTE | 2024-10-29 22:42 | PC.NURSE ---
Pt removed from bedpan and cleaned up and dressed prior to exiting ED.
== END 2024-10-29 22:43 | disposition home or self-care (01) ==
PROVIDERS: Emergency Provider Emergency Medicine; PCP Physician Assistant
DX: R56.9 Unspecified convulsions (principal); I10 Essential (primary) hypertension; I27.20 Pulmonary hypertension, unspecified; G47.33 Obstructive sleep apnea (adult) (pediatric); R73.03 Prediabetes; K21.9 Gastro-esophageal reflux disease without esophagitis; Z79.82 Long term (current) use of aspirin; Z79.899 Other long term (current) drug therapy; Z87.891 Personal history of nicotine dependence; Z90.49 Acquired absence of other specified parts of digestive tract
CPT/HCPCS: 36415; 80048; 83605; 85025; 96361; 96365; 96375; 99284; J1953; J2060; J7120

== ENCOUNTER 2025-06-29 12:40 | Emergency (ER) | payer MEDICARE, SELFPAY ==
--- NOTE | ~2025-06-29 | XR_ITS ---
Examination: XR forearm LT 2V, XR hand LT min 3V Clinical History: LT arm pain 2 days, swelling today no injury Comparison: None Technique: 2 views left forearm, 3 views left hand Findings/impression: Left forearm: 1. No fracture. Left hand: 1. No fracture or dislocation. 2. Mild scattered degenerative changes. Reviewed, dictated and finalized at location R. ADVISOR
[2025-06-29 12:51] VITALS: BP 101/40; PULSE 62; RESP 18; TEMP 36.7; O2SAT 99
--- NOTE | 2025-06-29 12:55 | ED.GENADULT ---
HPI - General Adult General Chief complaint: Extremity Injury, Upper Stated complaint: Left Hand Swelling Time Seen by Provider: 06/29/25 12:56 Source: patient, RN notes reviewed and old records reviewed Mode of arrival: ambulatory Limitations: no limitations History of Present Illness HPI narrative: 69 year old female who presents to [facility] care accompanied by child care center administrator with complaints of left hand being swollen for the past 2 days with no known injury. Patient reports hand hurts and also her forearm with no bruising or redness, swelling is present to the dorsal aspect of left hand. Patient does have history of dementia and has 24 hour caregivers and family assistance. MD complaint: left hand swollen for 2 days no injury also some discomfort to her left arm Onset (ago): day(s) (2) Severity: mild Treatments prior to arrival: none Related Data Home Medications ?Medication ?Instructions ?Recorded ?Confirmed ?Last Taken ?Type cyanocobalamin (vitamin B-12) 1,000 mcg IM MONTHLY 01/26/20 12/14/23 07/12/19 History 1,000 mcg/mL injection solution omeprazole 40 mg capsule,delayed 20 mg PO DAILY 01/26/20 12/14/23 Unknown History release donepezil 10 mg tablet 10 mg PO HS 12/14/23 12/14/23 Unknown History sertraline 50 mg tablet 50 mg PO DAILY 12/14/23 12/14/23 Unknown History memantine 10 mg tablet mg 06/29/25 Unknown History Allergies Allergy/AdvReac Type Severity Reaction Status Date / Time clonidine AdvReac Intermediate Palpitation Verified 06/29/25 12:51 s Penicillins AdvReac Mild Hives Verified 06/29/25 12:51 Review of Systems Review of Systems: CONSTITUTIONAL: Denies fever, chills, or sweats. EYES: Denies visual changes, redness, or discharge. ENT: Denies rhinorrhea, congestion, sore throat, or otalgia. CARDIOVASCULAR: Denies chest pain, palpitations, or edema. RESPIRATORY: Denies cough or dyspnea. GASTROINTESTINAL: Denies abdominal pain, nausea, vomiting, or diarrhea. GENITOURINARY: Denies dysuria or hematuria. SKIN: Denies rash or itching. MUSCULOSKELETAL: Denies back pain, positive for left hand swelling and some joint pain, or myalgia. NEUROLOGIC: Denies headache, numbness, or weakness. PSYCHIATRIC: reported history of anxiety or depression.dementia All systems reviewed & are unremarkable except as noted in HPI and below PMFSH Past Medical History Medical History Prediabetes Memory loss Progressive short-term memory loss within the last 2 years. No official dementia diagnosis. Gastroesophageal reflux disease Hypertension Seizure Pulmonary hypertension Obstructive sleep apnea Noncompliant with CPAP Surgical History Surgical History History of cholecystectomy History of hysterectomy Family History Family History Mother Family history of cardiovascular disease, Onset Age: 87 Diabetes mellitus, Onset Age: 87 Cerebrovascular accident, Onset Age: 87 Colon cancer Father Family history of cardiovascular disease, Onset Age: 83 Diabetes mellitus Son No problems noted. Sibling Breast cancer Sibling Heart attack Social History Social History Social History: The patient lives in [place] with her . They have 3 children, 2 daughters and 1 son. She smoked remotely as a young woman. No alcohol or illicit substance use. Her is currently in the hospital and is quite ill and thus her current surrogate decision makers are 3 children, Wander [place], Tiffanie [place], and Gudelia [place]. Code status: Full code. Living arrangements: with family Occupation/Education: unemployed Spiritual care concerns: Yes (Tenriism) Comments At time of signature, agree with nursing past medical, surgical, social and family history. There is no relevant family history pertinent to the presenting complaint Exam Narrative: GENERAL: Well-appearing, well-nourished, and in no acute distress. HEAD: Normocephalic, atraumatic. EYES: PERRLA and EOMI. ENT: Nares clear, no rhinorrhea or epistaxis. Mucous membranes moist.TM's normal throat pink with no swelling or exudates NECK: Supple.no lymphadenopathy CHEST: Clear to auscultation. No respiratory distress. no cough noted SAO2 99% on room air HEART: Regular rate and rhythm. No murmur heard. Normal peripheral pulses. ABDOMEN: Soft, nontender, nondistended, normal active bowel sounds. EXTREMITIES: Normal range of motion. No edema.Exception noted to swelling of left dorsal hand with no known injury, also reports some discomfort to her left forearm SKIN: Warm, dry, no rash. NEURO: No focal deficits. Alert and oriented x3.history of dementia Course Course Level of Care: Express Care Visit Vital Signs Vital signs: Vital Signs Temperature 36.7 C 06/29/25 12:51 Pulse Rate 62 06/29/25 12:51 Respiratory Rate 18 06/29/25 12:51 Blood Pressure 101/40 L 06/29/25 12:51 Pulse Oximetry 99 06/29/25 12:51 Oxygen Delivery Room Air 06/29/25 12:51 Temperature 36.7 C 06/29/25 12:51 Pulse Rate 62 06/29/25 12:51 Respiratory Rate 18 06/29/25 12:51 Blood Pressure 101/40 L 06/29/25 12:51 Pulse Oximetry 99 06/29/25 12:51 Oxygen Delivery Room Air 06/29/25 12:51 reviewed MDM MDM Narrative Medical decision making narrative: Patient is nontoxic and appropriate for outpatient care and follow up. x-ray films negative for fracture with some degenerative changes noted. Patient and caregiver provided anticipatory guidance and reasons to seek care in ED reviewed with patient and caregiver with understanding voiced. Differential Diagnosis Differential Diagnosis: Differential diagnostic considerations for upper extremity injury include sprain/strain of wrist, fracture of wrist, finger sprain, dislocation of finger, fracture of hand, dislocation of shoulder, fracture of humerus, fracture of clavicle, laceration, tendon injury, carpal tunnel syndrome.? Imaging Data Attestation: I personally reviewed and interpreted this imaging study as follows: My impression: no fracture degenerative changes Radiologist's impression: Eli Basilio??She/Her/Hers??69??F??1955 ? Allergy/Adv: clonidine, Penicillins [facility] [address] [place] [address] XRay Report Signed Patient: Eli Basilio : 1955 MR#: [id number] Age: 69 Acct:[id number] Loc: [facility] ADM Date: 06/29/[address]: Ordering Physician: Lori Hendricks APRN Date of Service: 06/29/25 Procedure(s): XR forearm LT 2V; XR hand LT min 3V Accession Number(s): [id number]; [id number] cc: Clifford, Chio ZAVALA; Lori Hendricks APRN~ Examination: XR forearm LT 2V, XR hand LT min 3V Clinical History: LT arm pain 2 days, swelling today no injury Comparison: None Technique: 2 views left forearm, 3 views left hand Findings/impression: Left forearm: 1. No fracture. Left hand: 1. No fracture or dislocation. 2. Mild scattered degenerative changes. Reviewed, dictated and finalized at location R. RITY [facility]OVER Please be advised this is a medical document. It is intended for [id number] communication. It is written in medical language and may contain unfamiliar abbreviations or verbiage. Medical documents are intended to carry relevant information, facts as evident, and the clinical opinion of the practitioner at the time of the encounter. This report may have been done utilizing a voice recognition system. Attempts have been made to correct errors. However, there may be uncorrected grammatical, spelling, and recognition errors present. The file time of this note does not necessarily represent the time of service. Dictated By: Ganga Venegas MD 06/29/25 1325 Signed By: <Electronically signed by Ganga Venegas MD in OV> 06/29/25 1329 Critical Care Time Critical Care Time Critical Care Time: No Discharge Plan Discharge Clinical Impression: Pain of left forearm, Arthralgia of hand, left Patient Disposition: Home Condition: Stable Instructions: Arthralgia (ED) Additional Instructions: Tylenol for lesser pain Ibuprofen regularly for the next 2-3 days for the inflammation 400 mg with food 2 to 3 times a day for the next 2 days Follow-up with orthopedic surgeon if continued complaints or swelling Follow-up with PCP if further problems or concerns Ice to the area 20-30 minutes 4-6 times a day may use warmth if more comfortable for patient Elevate above heart If your symptoms persist, change or worsen significantly before you can contact your personal physician then please, without delay, go to the emergency department for further evaluation. Follow-up with PCP in 7-10 days or sooner if needed Patient Language: Macedonian Prescriptions: No Action donepezil 10 mg tablet 10 mg PO HS sertraline 50 mg tablet 50 mg PO DAILY memantine 10 mg tablet levetiracetam 1,000 mg tablet 1,000 mg PO Q12H Qty: 60 8RF omeprazole 40 mg capsule,delayed release(DR/EC) 20 mg PO DAILY cyanocobalamin (vitamin B-12) 1,000 mcg/mL solution 1,000 mcg IM MONTHLY Follow-up/Referrals: Clifford,LUCAS Barroso [Primary Care Provider, Unknown] Time of Disposition: 13:47 Quality [place] Coma Scale Eyes: Open Verbal: Oriented and Alert Motor: Follows Commands [place] Coma Total Score: 15
== END 2025-06-29 14:00 | disposition home or self-care (01) ==
PROVIDERS: Emergency Provider Registered Nurse; PCP Physician Assistant
DX: M79.632 Pain in left forearm (principal); M25.542 Pain in joints of left hand; F03.90 Unspecified dementia, unspecified severity, without behavioral disturbance, psychotic disturbance, mood disturbance, and anxiety; G40.909 Epilepsy, unspecified, not intractable, without status epilepticus; R73.03 Prediabetes; K21.9 Gastro-esophageal reflux disease without esophagitis; I10 Essential (primary) hypertension; I27.20 Pulmonary hypertension, unspecified; G47.33 Obstructive sleep apnea (adult) (pediatric); Z91.199 Patient's noncompliance with other medical treatment and regimen due to unspecified reason
CPT/HCPCS: 73090; 73130; 99213; G0463